=== PATIENT | female | born 1935 | race Caucasian/White ===

== ENCOUNTER 2023-07-13 17:22 | Emergency (ER) | payer MEDICARE, OTHER, MEDICAID, SELFPAY ==
[2023-07-13 17:25] VITALS: BP 170/89; PULSE 73; RESP 20; O2SAT 99; BMI 25.1
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
[2023-07-13 18:06] LABS: Basophils Absolute Auto 0.1 10^3/uL (0.0-0.1); Basophils Percent Auto 1.2 % (0.2-2.0); Eosinophils Absolute Auto 0.1 10^3/uL (0.0-0.7); Eosinophils Percent Auto 2.2 % (0.9-7.0); Hematocrit 37.7 % (36.0-48.0); Hemoglobin 11.9 g/dL (12.0-16.0); Immature Granulocytes Abs Auto 0.01 10^3/uL (0.00-0.03); Immature Granulocytes Pct Auto 0.2 % (0.0-0.5); Lymphocytes Absolute Auto 2.5 10^3/uL (1.2-3.8); Mean Corpuscular HGB Conc 31.6 g/dL (29.9-35.2); Mean Corpuscular Hemoglobin 29.1 pg (26.7-34.0); Mean Corpuscular Volume 92.2 fL (81.0-99.0); Mean Platelet Volume 10.7 fL (9.5-13.5); Monocytes Absolute Auto 0.3 10^3/uL (0.3-0.8); Monocytes Percent Auto 5.5 % (1.7-12.0); Neutrophils Percent Auto 49.9 % (43.0-75.0); Platelet Count 249 10^3/uL (150-450); Red Blood Count 4.09 10^6/uL (4.20-5.40); Red Cell Distribution Width 13.1 % (11.0-15.0)
[2023-07-13 18:21] LABS: Alanine Aminotransferase 21 U/L (14-59); Albumin Globulin Ratio 0.8; Albumin Level 3.3 g/dL (3.4-5.0); Alkaline Phosphatase 73 U/L (46-116); Anion Gap 9.6; Aspartate Amino Transferase 15 U/L (15-37); BUN Creatinine Ratio 13.8; Bilirubin Total 0.3 mg/dL (0.2-1.0); Calcium 9.8 mg/dL (8.5-10.1); Carbon Dioxide 28.5 mmol/L (21.0-32.0); Chloride 104 mmol/L (98-107); Estimated GFR (African America 54 (>=60); Estimated GFR (Non-African Ame 44 (>=60); Globulin 3.9 g/dL; Glucose 134 mg/dL (74-106); Potassium 4.1 mmol/L (3.5-5.1); Sodium 138 mmol/L (136-145); Total Protein 7.2 g/dL (6.4-8.2)
[2023-07-13 18:22] LABS: Bilirubin Urine NEGATIVE (NEGATIVE); Blood Urine NEGATIVE (NEGATIVE); Clarity Urine CLEAR (CLEAR); Color Urine LT. YELLOW (YELLOW); Glucose Urine UA >=1000 mg/dL (NEGATIVE); Ketones Urine NEGATIVE (NEGATIVE); Leukocyte Esterase Urine NEGATIVE (NEGATIVE); Nitrite Urine NEGATIVE (NEGATIVE); Protein Urine NEGATIVE (NEG/TRACE); Specific Gravity Urine <=1.005 (1.005-1.025); Urobilinogen Urine 0.2 EU/dL (0.2-1.0)
[2023-07-13 18:25] LABS: Urine Microscopic Indicated NO
[2023-07-13 18:34] LABS: Amphetamine Screen Urine NEGATIVE (NEGATIVE); Barbiturates Screen Urine NEGATIVE (NEGATIVE); Benzodiazepines Screen Urine NEGATIVE (NEGATIVE); Buprenorphine Screen Urine NEGATIVE (NEGATIVE); Cannabinoid Screen Urine NEGATIVE (NEGATIVE); Cocaine Screen Urine NEGATIVE (NEGATIVE); Methadone Screen Urine NEGATIVE (NEGATIVE); Methamphetamines Screen Urine NEGATIVE (NEGATIVE); Opiate Screen Urine NEGATIVE (NEGATIVE); Oxycodone Screen Urine NEGATIVE (NEGATIVE); Phencyclidine Screen Urine NEGATIVE (NEGATIVE); Tricyclic Antidepressant Urine NEGATIVE (NEGATIVE)
[2023-07-13 18:55] VITALS: BP 160/82; PULSE 64; RESP 18; O2SAT 98
--- NOTE | 2023-07-13 21:42 | ED.GENADUL1 ---
HPI - General Adult General Chief complaint: Altered Mental Status Stated complaint: Altered Mental Status Time Seen by Provider: 07/13/23 17:27 Source: patient Mode of arrival: ambulance Limitations: altered mental status History of Present Illness HPI narrative: The patient was initially seen by Dr. Ramsay and signed out to me after discussing the case with her. Please see her full history and physical. Related Data Home Medications Medication Instructions Recorded Confirmed amlodipine 10 mg tablet 10 mg PO DAILY 07/13/23 07/13/23 atorvastatin 10 mg tablet 10 mg PO DAILY 07/13/23 07/13/23 desvenlafaxine succinate 100 mg 100 mg PO Q24H 07/13/23 07/13/23 tablet,extended release 24 hr indapamide 2.5 mg tablet 2.5 mg PO DAILY 07/13/23 07/13/23 levothyroxine 100 mcg tablet 125 mcg PO DAILY 07/13/23 07/13/23 lisinopril 10 mg tablet 10 mg PO DAILY 07/13/23 07/13/23 metoprolol tartrate 25 mg tablet 25 mg PO DAILY 07/13/23 07/13/23 omeprazole 40 mg capsule,delayed 40 mg PO DAILY 07/13/23 07/13/23 release potassium chloride 10 mEq 10 meq PO DAILY 07/13/23 07/13/23 capsule,extended release sertraline 25 mg tablet 25 mg PO Q24H 07/13/23 07/13/23 trazodone 50 mg tablet 50 mg PO BEDTIME 07/13/23 07/13/23 Allergies Allergy/AdvReac Type Severity Reaction Status Date / Time adhesive tape AdvReac Mild Hives Verified 07/13/23 20:25 Penicillins AdvReac Mild Hives Verified 07/13/23 20:25 Exam Constitutional Vital Signs, click to edit/add: Last Vital Signs Pulse 64 07/13/23 18:55 Resp 18 07/13/23 18:55 BP 160/82 H 07/13/23 18:55 Pulse Ox 98 07/13/23 18:55 O2 Del Method Room Air 07/13/23 17:25 Course Vital Signs Vital signs: Vital Signs Pulse Rate 73 07/13/23 17:25 Respiratory Rate 20 07/13/23 17:25 Blood Pressure 170/89 H 07/13/23 17:25 Pulse Oximetry 99 07/13/23 17:25 Oxygen Delivery Method Room Air 07/13/23 17:25 Pulse Rate 64 07/13/23 18:55 Respiratory Rate 18 07/13/23 18:55 Blood Pressure 160/82 H 07/13/23 18:55 Pulse Oximetry 98 07/13/23 18:55 Oxygen Delivery Method Room Air 07/13/23 17:25 Medical Decision Making MDM Narrative Medical decision making narrative: mental health services has been involved and the patient will be discharged to [facility]. Differential Diagnosis Differential Diagnosis: behavior problem, medical noncompliance Lab Data Lab results reviewed: Yes I reviewed the patient's lab results Labs: Lab Results 07/13/23 07/13/23 Range/Units 17:45 18:13 WBC 6.0 (4.0-11.0) 10^3/uL RBC 4.09 L (4.20-5.40) 10^6/uL Hgb 11.9 L (12.0-16.0) g/dL Hct 37.7 (36.0-48.0) % MCV 92.2 (81.0-99.0) fL MCH 29.1 (26.7-34.0) pg MCHC 31.6 (29.9-35.2) g/dL RDW 13.1 (11.0-15.0) % Plt Count 249 (150-450) 10^3/uL MPV 10.7 (9.5-13.5) fL Neut % (Auto) 49.9 (43.0-75.0) % Lymph % (Auto) 41.0 (20.5-60.0) % [place] % (Auto) 5.5 (1.7-12.0) % Eos % (Auto) 2.2 (0.9-7.0) % Baso % (Auto) 1.2 (0.2-2.0) % Neut # (Auto) 3.0 (1.4-6.5) 10^3/uL Lymph # (Auto) 2.5 (1.2-3.8) 10^3/uL [place] # (Auto) 0.3 (0.3-0.8) 10^3/uL Eos # (Auto) 0.1 (0.0-0.7) 10^3/uL Baso # (Auto) 0.1 (0.0-0.1) 10^3/uL Abs Immat Gran (auto) 0.01 (0.00-0.03) 10^3/uL Imm/Tot Granulo (auto) 0.2 (0.0-0.5) % Sodium 138 (136-145) mmol/L Potassium 4.1 (3.5-5.1) mmol/L Chloride 104 (98-107) mmol/L Carbon Dioxide 28.5 (21.0-32.0) mmol/L Anion Gap 9.6 BUN 16.0 (7.0-18.0) mg/dL Creatinine 1.16 H (0.55-1.02) mg/dL Est GFR ( Amer) 54 L (>=60) Est GFR (Non-Af Amer) 44 L (>=60) BUN/Creatinine Ratio 13.8 Glucose 134 H (74-106) mg/dL Calcium 9.8 (8.5-10.1) mg/dL Total Bilirubin 0.3 (0.2-1.0) mg/dL AST 15 (15-37) U/L ALT 21 (14-59) U/L Alkaline Phosphatase 73 (46-116) U/L Total Protein 7.2 (6.4-8.2) g/dL Albumin 3.3 L (3.4-5.0) g/dL Globulin 3.9 g/dL Albumin/Globulin Ratio 0.8 Urine Color Lt. yellow (YELLOW) Urine Clarity Clear (CLEAR) Urine pH 7.0 (5.0-9.0) Ur Specific [place] <=1.005 A (1.005-1.025) Urine Protein Negative (NEG/TRACE) mg/dL Urine Glucose (UA) >=1000 A (NEGATIVE) mg/dL Urine Ketones Negative (NEGATIVE) mg/dL Urine Occult Blood Negative (NEGATIVE) Urine Nitrite Negative (NEGATIVE) Urine Bilirubin Negative (NEGATIVE) Urine Urobilinogen 0.2 (0.2-1.0) EU/dL Ur Leukocyte Esterase Negative (NEGATIVE) Urine Opiates Screen Negative (NEGATIVE) Ur Buprenorphine Scrn Negative (NEGATIVE) Ur Oxycodone Screen Negative (NEGATIVE) Urine Methadone Screen Negative (NEGATIVE) Ur Propoxyphene Screen Negative (NEGATIVE) Ur Barbiturates Screen Negative (NEGATIVE) U Tricyclic Antidepress Negative (NEGATIVE) Ur Phencyclidine Scrn Negative (NEGATIVE) Ur Amphetamines Screen Negative (NEGATIVE) U Methamphetamines Scrn Negative (NEGATIVE) U Benzodiazepines Scrn Negative (NEGATIVE) Urine Cocaine Screen Negative (NEGATIVE) U Cannabinoids Screen Negative (NEGATIVE) Discharge Plan Discharge Chief Complaint: Altered Mental Status Clinical Impression: Behavior problem, adult Patient Disposition: [facility] Time of Disposition Decision: 21:41 Condition: Good Mode of Transportation: EMS Stand Alone Forms: Portal Instructions Referrals: MARZENA GUILLAUME [Primary Care Provider] - 1 week
[2023-07-13 23:26] VITALS: BP 143/67; PULSE 71; RESP 18; O2SAT 97
== END 2023-07-13 23:49 ==
PROVIDERS: Emergency Medicine; Emergency Provider Emergency Medicine; PCP Family Medicine
DX: F91.9 Conduct disorder, unspecified (principal); F03.90 Unspecified dementia, unspecified severity, without behavioral disturbance, psychotic disturbance, mood disturbance, and anxiety; Z79.899 Other long term (current) drug therapy; Z79.890 Hormone replacement therapy
CPT/HCPCS: 36415; 80053; 80307; 81003; 85025; 99285

== ENCOUNTER 2024-11-27 02:37 | Emergency (ER) | payer MEDICARE, MEDICAID, SELFPAY ==
[2024-11-27] VITALS (8 sets, daily range): BP systolic 119–141; BP diastolic 58–67; PULSE 80–84; TEMP 36.6; O2SAT 95–98; BMI 28.3
--- NOTE | 2024-11-27 02:46 | ED_ITS ---
HPI HPI - General Adult General Chief complaint: Nausea/Vomiting/Diarrhea Stated complaint: other Time Seen by Provider: 11/27/24 02:43 Source: patient Mode of arrival: ambulance Limitations: no limitations History of Present Illness HPI narrative: Patient presents by EMS from her [facility] where she had an episode of vomiting and diarrhea today. Nurse reported that she had a brief episode of unresponsiveness and may be had seizure-like activity. Patient states that she feels lousy. Related Data Home Medications ?Medication ?Instructions ?Recorded ?Confirmed amlodipine 10 mg tablet 10 mg PO DAILY 07/13/23 07/13/23 atorvastatin 10 mg tablet 10 mg PO DAILY 07/13/23 11/27/24 desvenlafaxine succinate 100 mg 100 mg PO Q24H 07/13/23 07/13/23 tablet,extended release 24 hr indapamide 2.5 mg tablet 2.5 mg PO DAILY 07/13/23 07/13/23 levothyroxine 100 mcg tablet 125 mcg PO DAILY 07/13/23 07/13/23 lisinopril 10 mg tablet 10 mg PO DAILY 07/13/23 07/13/23 metoprolol tartrate 25 mg tablet 25 mg PO DAILY 07/13/23 07/13/23 omeprazole 40 mg capsule,delayed 40 mg PO DAILY 07/13/23 07/13/23 release potassium chloride 10 mEq 10 meq PO DAILY 07/13/23 07/13/23 capsule,extended release sertraline 25 mg tablet 25 mg PO Q24H 07/13/23 07/13/23 trazodone 50 mg tablet 50 mg PO BEDTIME 07/13/23 07/13/23 acetaminophen 325 mg tablet (Pain 650 mg PO Q6H PRN pain 11/27/24 11/27/24 Relief (acetaminophen)) aspirin 81 mg chewable tablet 81 mg PO DAILY 11/27/24 11/27/24 bupropion HCl 75 mg tablet 75 mg PO DAILY 11/27/24 11/27/24 buspirone 7.5 mg tablet 7.5 mg PO BID 11/27/24 11/27/24 dapagliflozin propanediol 10 mg 10 mg PO DAILY 11/27/24 11/27/24 tablet (Farxiga) escitalopram oxalate 5 mg tablet 5 mg PO DAILY 11/27/24 11/27/24 indapamide 1.25 mg tablet 1.25 mg PO DAILY 11/27/24 11/27/24 levothyroxine 112 mcg tablet 112 mcg PO DAILY 11/27/24 11/27/24 lisinopril 5 mg tablet 5 mg PO DAILY 11/27/24 11/27/24 loperamide 2 mg capsule 2 mg PO Q6H PRN loose stool 11/27/24 11/27/24 (Anti-Diarrheal (loperamide)) omeprazole 20 mg capsule,delayed 20 mg PO DAILY 11/27/24 11/27/24 release ondansetron HCl 4 mg tablet 4 mg PO Q6H PRN nausea and vomiting 11/27/24 11/27/24 spironolactone 25 mg tablet 25 mg PO DAILY 11/27/24 11/27/24 Allergies Allergy/AdvReac Type Severity Reaction Status Date / Time adhesive tape AdvReac Mild Hives Verified 11/27/24 03:10 Penicillins AdvReac Mild Hives Verified 11/27/24 03:10 Opioid HPI Opioid Management Most Recent Opioid Data: Last Pain Scale 0 07/13/23 17:46 07/13/23 Ur Phencyclidine Scrn Negative (NEGATIVE) 07/13/23 18:13 1011/04 Review of Systems ROS Status of ROS 10 or more systems reviewed and unremark able except as noted in history and below [facility] Social History Little interest or pleasure in doing things: not at all Feeling down, depressed, or hopeless: not at all Exam Narrative Exam Narrative: Afebrile and nondistressed. Mildly ill-appearing. HEENT exam is normal to inspection. Neck is supple. Lung sounds are clear to auscultation bilaterally with good air entry. Heart has regular rate and rhythm. Abdomen soft nontender. There is no facial asymmetry. Speech and mentation are clear and intact she moves all extremities actively. Constitutional Vital Signs, click to edit/add: Last Vital Signs Temp 97.8 F 11/27/24 02:40 Pulse 84 11/27/24 06:51 Resp 18 11/27/24 06:51 BP 141/61 11/27/24 06:51 Pulse Ox 95 11/27/24 06:51 O2 Del Method Room Air 11/27/24 06:51 Course Vital Signs Vital signs: Vital Signs Temperature 97.8 F 11/27/24 02:40 Pulse Rate 80 11/27/24 02:40 Respiratory Rate 20 11/27/24 02:40 Blood Pressure 119/60 11/27/24 02:40 Pulse Oximetry 98 11/27/24 02:40 Oxygen Delivery Method Room Air 11/27/24 02:40 Temperature 97.8 F 11/27/24 02:40 Pulse Rate 84 11/27/24 06:51 Respiratory Rate 18 11/27/24 06:51 Blood Pressure 141/61 11/27/24 06:51 Pulse Oximetry 95 11/27/24 06:51 Oxygen Delivery Method Room Air 11/27/24 06:51 Medical Decision Making MDM Narrative Medical decision making narrative: Patient has prerenal azotemia consistent with volume depletion. CT scan of the abdomen pelvis shows flattening of the IVC and fluid in the GI tract consistent with enteritis and low volume status. She is started on IV fluid resuscitation and is receiving his second liter of saline. Initial lactate level was elevated 2.3 but I do not feel this is due to sepsis. This is caused by hypovolemia and the second lactate level has normalized. Urine studies are pending. Care is transferred to oncoming physician at change of shift for further evaluation and eventual disposition. Lab Data Labs: Lab Results 11/27/24 11/27/24 11/27/24 Range/Units 03:06 05:30 05:55 WBC 12.5 H (4.0-11.0) 10^3/uL RBC 4.08 L (4.20-5.40) 10^6/uL Hgb 12.1 (12.0-16.0) g/dL Hct 38.6 (36.0-48.0) % MCV 94.6 (81.0-99.0) fL MCH 29.7 (26.7-34.0) pg MCHC 31.3 (29.9-35.2) g/dL RDW 13.9 (11.0-15.0) % Plt Count 293 (150-450) 10^3/uL MPV 10.4 (9.5-13.5) fL Neut % (Auto) 75.8 H (43.0-75.0) % Lymph % (Auto) 15.9 L (20.5-60.0) % [place] % (Auto) 5.4 (1.7-12.0) % Eos % (Auto) 2.1 (0.9-7.0) % Baso % (Auto) 0.5 (0.2-2.0) % Neut # (Auto) 9.5 H (1.4-6.5) 10^3/uL Lymph # (Auto) 2.0 (1.2-3.8) 10^3/uL [place] # (Auto) 0.7 (0.3-0.8) 10^3/uL Eos # (Auto) 0.3 (0.0-0.7) 10^3/uL Baso # (Auto) 0.1 (0.0-0.1) 10^3/uL Abs Immat Gran (auto) 0.04 H (0.00-0.03) 10^3/uL Imm/Tot Granulo (auto) 0.3 (0.0-0.5) % Sodium 135 L (136-145) mmol/L Potassium 4.7 (3.5-5.1) mmol/L Chloride 101 (98-107) mmol/L Carbon Dioxide 23.8 (21.0-32.0) mmol/L Anion Gap 14.9 BUN 40.0 H (7.0-18.0) mg/dL Creatinine 2.09 H (0.55-1.02) mg/dL Est GFR ( Amer) 27 L (>=60 mL/min/1.73m^2) Est GFR (Non-Af Amer) 22 L (>=60 mL/min/1.73m^2) BUN/Creatinine Ratio 19.1 Glucose 243 H (74-106) mg/dL Lactate 2.3 H* 1.8 (0.4-2.0) mmol/L Calcium 10.5 H (8.5-10.1) mg/dL Total Bilirubin 0.3 (0.2-1.0) mg/dL Direct Bilirubin 0.1 (0.0-0.2) mg/dL AST 16 (15-37) U/L ALT 19 (14-59) U/L Alkaline Phosphatase 106 (46-116) U/L Total Protein 8.2 (6.4-8.2) g/dL Albumin 3.8 (3.4-5.0) g/dL Globulin 4.4 g/dL Albumin/Globulin Ratio 0.9 Lipase 69.0 (16.0-77.0) U/L Urine Color Yellow (YELLOW) Urine Clarity Sl cloudy (CLEAR) Urine pH 5.5 (5.0-9.0) Ur Specific [place] 1.025 (1.005-1.025) Urine Protein 30 A (NEG/TRACE) mg/dL Urine Glucose (UA) >=1000 A (NEGATIVE) mg/dL Urine Ketones Negative (NEGATIVE) mg/dL Urine Occult Blood Small A (NEGATIVE) Urine Nitrite Negative (NEGATIVE) Urine Bilirubin Negative (NEGATIVE) Urine Urobilinogen 0.2 (0.2-1.0) EU/dL Ur Leukocyte Esterase Small A (NEGATIVE) Discharge Plan Discharge Chief Complaint: Nausea/Vomiting/Diarrhea Clinical Impression: Gastroenteritis, Fluid volume depletion Prescriptions / Home Meds: No Action amlodipine 10 mg tablet 10 mg PO DAILY atorvastatin 10 mg tablet 10 mg PO DAILY desvenlafaxine succinate 100 mg tablet extended release 24 hr 100 mg PO Q24H indapamide 2.5 mg tablet 2.5 mg PO DAILY levothyroxine 100 mcg tablet 125 mcg PO DAILY lisinopril 10 mg tablet 10 mg PO DAILY metoprolol tartrate 25 mg tablet 25 mg PO DAILY omeprazole 40 mg capsule,delayed release(DR/EC) 40 mg PO DAILY potassium chloride 10 mEq capsule, extended release 10 meq PO DAILY sertraline 25 mg tablet 25 mg PO Q24H trazodone 50 mg tablet 50 mg PO BEDTIME aspirin 81 mg tablet,chewable 81 mg PO DAILY bupropion HCl 75 mg tablet 75 mg PO DAILY buspirone 7.5 mg tablet 7.5 mg PO BID escitalopram oxalate 5 mg tablet 5 mg PO DAILY dapagliflozin propanediol [Farxiga] 10 mg tablet 10 mg PO DAILY loperamide [Anti-Diarrheal (loperamide)] 2 mg capsule 2 mg PO Q6H PRN (Reason: loose stool) indapamide 1.25 mg tablet 1.25 mg PO DAILY levothyroxine 112 mcg tablet 112 mcg PO DAILY lisinopril 5 mg tablet 5 mg PO DAILY omeprazole 20 mg capsule,delayed release(DR/EC) 20 mg PO DAILY spironolactone 25 mg tablet 25 mg PO DAILY acetaminophen [Pain Relief (acetaminophen)] 325 mg tablet 650 mg PO Q6H PRN (Reason: pain) ondansetron HCl 4 mg tablet 4 mg PO Q6H PRN (Reason: nausea and vomiting) Print Language: Irish Referrals: MARZENA GUILLAUME [Primary Care Provider] - 1 week
--- NOTE | 2024-11-27 02:47 | CT_ITS ---
The [address] [address] Patient Name: CATE PAUL MRN: [id number] date: 1935 Sex: F Assigned Patient Location: ER Current Patient Location: ER Accession/Order Number: [id number] Exam Date: 11/27/2024 03:14 Report Date: 11/27/2024 05:05 At the request of: EMILY SEGUNDO Procedure: CT abdomen pelvis wo con EXAM: CT abdomen pelvis wo con HISTORY: vomiting, diarrhea, abd pain COMPARISON: CT abdomen/pelvis dated 10/06/2016. TECHNIQUE: CT abdomen/pelvis without intravenous contrast. FINDINGS: Atelectatic densities at the lung bases. Stable Harshal's lobe configuration of the liver with the right lobe measuring 17.6 cm in longitudinal dimension. Stable 1.6 cm hypodense lesion within the liver measuring 5 Hounsfield units which most commonly is a cyst. There are a few scattered calcified granuloma within the liver. The gallbladder and biliary tree are unremarkable. The pancreatic head is mildly fatty infiltrated. There are numerous calcified granuloma scattered within the spleen. The bilateral adrenal glands are unremarkable. There is mild cortical scarring and/or retained lobulation along the contour of both kidneys. There is a 0.4 cm high attenuation nodule projecting from the posterior lateral aspect of the midpole the right kidney which most commonly is a Bosniak 2 cyst complicated with proteinaceous debris and/or blood degradation products. Nonobstructive bowel gas pattern. There is a large amount of liquid stool throughout the colon. There is no colonic wall thickening. The appendix is not identified. There is fluid within the distal esophageal lumen suggesting gastroesophageal reflux. There is a small amount of fluid within the stomach. Fluid within jejunal and ileal small bowel loops with mild circumferential wall thickening. Correlate with clinical findings of an enteritis with diarrhea state. Multivessel coronary calcifications. Mitral annular calcification. Moderately severe atheromatous calcification abdominal aorta and iliac arteries. Atheromatous calcifications, femoral, femoral and profunda femoral arteries. Mild atheromatous calcification splenic, superior mesenteric and bilateral renal arteries. There is flattening of the IVC. Correlate with the patient's hydration status. There is no free air, free fluid or inflammatory reaction/abscess. There are no pathologically enlarged lymph nodes. There is a small amount of gas within the underdistended urinary bladder. Correlate with recent instrumentation of the urinary bladder. There is mild circumferential thickening of the urinary bladder wall which may in part be related to underdistention. Correlate with a urinalysis to exclude a cystitis. There is fat extending into the left inguinal canal. The patient has had a prior hysterectomy. There are numerous pelvic phleboliths. A small amount of fat extending into the umbilicus. The bony structures are osteopenic. There are discogenic degenerative changes at numerous levels along the thoracolumbar spine, most prominent and severe at L2-3. There is facet arthritis at L4-5 and L5-S1. CT/CT abdomen pelvis wo con IMPRESSION: Findings as described which can be associated with an enteritis and diarrhea state. Correlate with clinical findings. The bowel gas pattern is nonobstructive. There is no free air, free fluid or inflammatory reaction. Stable 1.6 cm hypodense lesion within the liver which most commonly is a cyst. There is a 0.4 cm hypoattenuation nodule projecting from the posterior lateral aspect of the midpole the right kidney which most commonly is a Bosniak 2 cyst complicated with proteinaceous debris and/or blood degradation products. There is flattening of the IVC. Correlate with the patient's hydration status. Atherosclerotic disease as described. Small amount of gas within the underdistended urinary bladder. Correlate with recent instrumentation of the urinary bladder. There is mild to confirm nodule thickening of the urinary bladder wall which may in part be related to underdistention. Correlate with a urinalysis to exclude a cystitis. Few additional findings as described in the body the report. Electronically authenticated by: JESSE YOUNG Date: 11/27/2024 05:05
[2024-11-27 03:14] LABS: Basophils Absolute Auto 0.1 10^3/uL (0.0-0.1); Basophils Percent Auto 0.5 % (0.2-2.0); Eosinophils Absolute Auto 0.3 10^3/uL (0.0-0.7); Eosinophils Percent Auto 2.1 % (0.9-7.0); Hematocrit 38.6 % (36.0-48.0); Hemoglobin 12.1 g/dL (12.0-16.0); Immature Granulocytes Abs Auto 0.04 10^3/uL (0.00-0.03); Immature Granulocytes Pct Auto 0.3 % (0.0-0.5); Lymphocytes Percent Auto 15.9 % (20.5-60.0); Mean Corpuscular HGB Conc 31.3 g/dL (29.9-35.2); Mean Corpuscular Hemoglobin 29.7 pg (26.7-34.0); Mean Corpuscular Volume 94.6 fL (81.0-99.0); Mean Platelet Volume 10.4 fL (9.5-13.5); Monocytes Absolute Auto 0.7 10^3/uL (0.3-0.8); Monocytes Percent Auto 5.4 % (1.7-12.0); Neutrophils Absolute Auto 9.5 10^3/uL (1.4-6.5); Neutrophils Percent Auto 75.8 % (43.0-75.0); Platelet Count 293 10^3/uL (150-450); Red Blood Count 4.08 10^6/uL (4.20-5.40); Red Cell Distribution Width 13.9 % (11.0-15.0); White Blood Count 12.5 10^3/uL (4.0-11.0)
[2024-11-27 03:32] LABS: Alanine Aminotransferase 19 U/L (14-59); Albumin Globulin Ratio 0.9; Albumin Level 3.8 g/dL (3.4-5.0); Alkaline Phosphatase 106 U/L (46-116); Anion Gap 14.9; Aspartate Amino Transferase 16 U/L (15-37); BUN Creatinine Ratio 19.1; Bilirubin Direct 0.1 mg/dL (0.0-0.2); Bilirubin Total 0.3 mg/dL (0.2-1.0); Calcium 10.5 mg/dL (8.5-10.1); Carbon Dioxide 23.8 mmol/L (21.0-32.0); Chloride 101 mmol/L (98-107); Estimated GFR (African America 27 (>=60 mL/min/1.73m^2); Estimated GFR (Non-African Ame 22 (>=60 mL/min/1.73m^2); Globulin 4.4 g/dL; Glucose 243 mg/dL (74-106); Potassium 4.7 mmol/L (3.5-5.1); Sodium 135 mmol/L (136-145); Total Protein 8.2 g/dL (6.4-8.2)
[2024-11-27] MEDS: 0.9 % SODIUM CHLORIDE 1,000 ML 250 ML IV (03:33)
[2024-11-27] MEDS: ONDANSETRON PF 4 MG/2 ML VIAL IV (03:33)
[2024-11-27 03:44] LABS: Lactate/Lactic Acid 2.3 mmol/L (0.4-2.0)
[2024-11-27 06:36] LABS: Lactate/Lactic Acid 1.8 mmol/L (0.4-2.0)
[2024-11-27 06:47] LABS: Bilirubin Urine NEGATIVE (NEGATIVE); Blood Urine SMALL (NEGATIVE); Clarity Urine SL CLOUDY (CLEAR); Color Urine YELLOW (YELLOW); Glucose Urine UA >=1000 mg/dL (NEGATIVE); Ketones Urine NEGATIVE (NEGATIVE); Leukocyte Esterase Urine SMALL (NEGATIVE); Nitrite Urine NEGATIVE (NEGATIVE); Protein Urine 30 mg/dL (NEG/TRACE); Specific Gravity Urine 1.025 (1.005-1.025); Urobilinogen Urine 0.2 EU/dL (0.2-1.0); pH Urine 5.5 (5.0-9.0)
[2024-11-27 06:49] LABS: Urine Microscopic Indicated YES
[2024-11-27] MEDS: 0.9 % SODIUM CHLORIDE 1,000 ML 1000 ML IV (06:50)
[2024-11-27 07:02] LABS: Bacteria Urine LARGE #/HPF (NONE SEEN); Cast Seen? SEEN #/LPF (NONE SEEN); Crystals Seen? None Seen #/HPF (None Seen); Hyaline Casts Urine FEW; Mucus Urine SMALL (NONE SEEN); Squamous Epithelial Cell Urine MANY #/LPF (NONE/RARE); Transitional Epi Cells Urine RARE #/LPF (NONE SEEN); WBC Urine >100 #/HPF (NONE SEEN); White Blood Cell Casts Urine FEW
[2024-11-27 07:03] LABS: Urine Culture Indicated YES-FRMC
[2024-11-27] MEDS: CEFTRIAXONE 1,000 MG in 0.9 % SODIUM CHLORIDE 50 ML 100 MG IV (07:27)
== END 2024-11-27 10:26 | disposition home or self-care (01) ==
PROVIDERS: Emergency Medicine; Emergency Provider Emergency Medicine; PCP Family Medicine
DX: K52.9 Noninfective gastroenteritis and colitis, unspecified (principal); E86.9 Volume depletion, unspecified; R40.4 Transient alteration of awareness; R79.89 Other specified abnormal findings of blood chemistry
CPT/HCPCS: 36415; 74176; 80048; 80076; 81001; 83605; 83690; 85025; 87086; 87150; 87186; 96361; 96365; 96375; 99284; J0696; J2405

== ENCOUNTER 2025-05-30 12:20 | Outpatient (REF) | payer MEDICARE, OTHER, MEDICAID, SELFPAY ==
--- OUTSIDE RECORDS SUMMARY | 2025-05-30 12:25 | XMS_ITS | Encounter Summary ---
Author Organization [facility] Address [address] [place] [address] Care Team Providers Care Infection Control Practitioner Name Role Phone Mervat Banuelos MD Primary Care Provider [phone] Source Comments In the event this information is protected by the Federal Confidentiality of Alcohol and Drug AbusePatient Records regulations: The Federal rules restrict any use of the information to criminally investigate or prosecute any alcohol or drug abuse patient.[facility] Encounter Details Date Type Department Care Team (Late st Contact Info) Description 07/23/2011 Patient Msg Medical Records [address] [place] [address] Provider, Ccf RE: Request an Appointment Social History Tobacco Use Types Packs/Day Years Used Date Smoking Tobacco: Never Smokeless Tobacco: Never Alcohol Use Standard Drinks/Week Comments Yes 0 (1 standard drink = 0.6 oz pur e alcohol) occassionally Comments No Sex and Gender Information Value Date Recorded Sex Assigned at Female 06/19/2022 8:40 PM EDT Legal Sex Female 8:57 AM EST Gender Identity Female 06/19/2022 8:40 PM EDT Sexual Orientation Straight 06/19/2022 8: 40 PM EDT documented as of this encounter Plan of Treatment Not on file documented as of this encounter Visit Diagnoses Not on filedocumented in this encounter Care Teams Infection Control Practitioner Relationship Specialty Start Date End Date Mervat Banuelos MD [address] [place] [address] PCP - General Internal Medicine 05/13/11 04/02/23 documented as of this encounter
--- OUTSIDE RECORDS SUMMARY | 2025-05-30 12:25 | XMS_ITS ---
Author Organization [facility] Care Team Providers Care Church History Professor Name Role Phone Saldukebetty Sawyer Unavailable Unavailable Allergies and adverse reactions Code CodeSystem Substance Reaction Severity StartDate Concern Status 521720198 SNOMED CT Penicillins Unknown 02/02/2020 activ e Care Team Name Role Address Phone Organization Dates Sawyer Hickey PCP [address] [facility] [facility] [place], [address], [place] (Office): : : [facility] 02/02/2020 - 08/19/2020 Immunizations Immunization Status Vaccine Details Vaccine Code CodeSystem Date Notes Influenza completed Influenza, high-dose, split virus, quadrivalent, injectable, preservative free lotNumber: [id number] expiry: 04/11/2021 Mfg: Seqirus Given 0.5 ml Right Deltoid intramuscularly 197 CVX created date: 08/11/2020 consent date: 08/10/2020 administer ed date: 08/11/2020 Influenza completed Influenza, high-dose, split virus, quadrivalent, injectable, preservative free 197 CVX created date: 02/02/2020 administer ed date: 06/30/2019 TB 1 Step Mantoux (PPD) completed tuberculin skin test; unspecified formulation lotNumber: [id number] expiry: 09/11/2020 Mfg: [employer] Given 0.1 ml Left Forearm subcutaneously 98 CVX created date: 02/10/2020 consent date: 02/10/2020 administer ed date: 02/10/2020 TB 1 Step Mantoux (PPD) completed tuberculin skin test; unspecified formulation lotNumber: [id number] expiry: 02/10/2020 Mfg: [employer] Given 0.1 ml Right Forearm intradermally 98 CVX created date: 02/02/2020 consent date: 02/02/2020 administer ed date: 02/02/2020 Prevnar 13 completed pneumococcal conjugate vaccine, 13 valent 133 CVX created date: 02/02/2020 consent date: 02/02/2020 administer ed date: 08/23/2015 PPSV 23 completed pneumococcal polysaccharide vaccine, 23 valent 33 CVX created date: 02/02/2020 consent date: 02/08/2020 administer ed date: 09/01/2014 Per resident's my chart file provided by DTaP completed created date: 02/02/2020 administer ed date: 05/13/2011 Shingles Zoster completed crea marino date: 02/02/2020 administer ed date: 05/13/2011 Mental Status Section Date Assessment Total Score Description 08/19/2020 BIMS 09 moderate cognit juni impairment CAM 0 No delirium ind icated PHQ-9 04 minimal depress ion 08/03/2020 BIMS 11 moderate cognit juni impairment CAM 0 No delirium ind icated PHQ-9 05 mild depression Problems Problem # Description Date of onset Resolved Date Code CodeSystem Concern Status 1 ADJUSTMENT DISORDER, UNSPECIFIED 07/26/[address] active 2 BODY MASS INDEX [BMI] 29.0-29.9, ADULT 07/13/[address] active 3 UNSPECIFIED OSTEOARTHRITIS, UNSPECIFIED SITE 04/17/[address] active 4 PERIPHERAL VASCULAR DISEASE, UNSPECIFIED 04/13/[address] active 5 BODY MASS INDEX [BMI] 28.0-28.9, ADULT 04/12/20 20 07/13/[address] completed 6 CHRONIC KIDNEY DISEASE, STAGE 4 (SEVERE) 03/01/[address] active 7 COPPER ETCHER (CURRENT) USE OF INSULIN 02/25/20 20 08/14/[address] completed 8 BODY MASS INDEX [BMI] 29.0-29.9, ADULT 02/11/20 20 04/12/[address] completed 9 DIFFICULTY IN WALKING, NOT ELSEWHERE CLASSIFIED 02/10/2002/28/[address] completed 10 BODY MASS INDEX [BMI]30.0-30.9, ADULT 02/08/20 20 02/11/[address] completed 11 OBESITY, UNSPECIFIED 02/08/[address] active 12 MUSCLE WEAKNESS (GENERALIZED) 02/07/2002/28/[address] completed 13 OTHER PROBLEMS RELATED TO LIFE MANAGEMENT DIFFICULTY 02/07/2002/28/[address] completed 14 ANEMIA IN CHRONIC KIDNEY DISEASE 02/02/[address] active 15 ANXIETY DISORDER, UNSPECIFIED 02/02/[address] active 16 CHRONIC KIDNEY DISEASE, STAGE 3 (MODERATE) 02/02/2003/01/[address] completed 17 GASTRO-ESOPHAGEAL REFLUX DISEASE WITHOUT ESOPHAGITIS 02/02/[address] active 18 HISTORY OF FALLING 02/02/[address] active 19 HYPERTENSIVE CHRONIC KIDNEY DISEASE WITH STAGE 1 THROUGH STAGE 4 CHRONIC KIDNEY DISEASE, OR UNSPECIFIED CHRONIC KIDNEY DISEASE 02/02/[address] active 20 HYPOKALEMIA 02/02/[address] active 21 HYPOTHYROIDISM, UNSPECIFIED 02/02/[address] active 22 IRRITABLE BOWEL SYNDROME, UNSPECIFIED 02/02/[address] active 23 MAJOR DEPRESSIVE DISORDER, SINGLE EPISODE, UNSPECIFIED 02/02/[address] active 24 OBSTRUCTIVE SLEEP APNEA (ADULT) (PEDIATRIC) 02/02/[address] active 25 PRESENCE OF LEFT ARTIFICIAL SHOULDER JOINT 02/02/[address] active 26 PURE HYPERCHOLESTEROLE LONNIE, UNSPECIFIED 02/02/[address] active 27 TYPE 2 DIABETES MELLITUS WITH DIABETIC CHRONIC KIDNEY DISEASE 02/02/[address] active 28 UNSPECIFIED DEMENTIA WITH BEHAVIORAL DISTURBANCE 02/02/[address] active 29 UNSPECIFIED PSYCHOSIS NOT DUE TO A SUBSTANCE OR KNOWN PHYSIOLOGICAL CONDITION 02/02/[address] active 30 URINARY TRACT INFECTION, SITE NOT SPECIFIED 02/02/2002/04/[address] completed 31 URINARY TRACT INFECTION, SITE NOT SPECIFIED 02/02/2002/04/[address] completed 32 VITAMIN D DEFICIENCY, UNSPECIFIED 02/02/[address] active Reason for Referral No Reasons for Referral Entered Social History Social History Observation Description Start Date End Date Code Code System Current Smoking Status Tobacco smoking consumption unknown 203701121 SNOMED CT Sex Assigned At Female 1935 24385-5 [facility] Gender Identity Vital Signs Code Code System Vitals Name Values and Units Timing Information 79794-0 [facility] Pain Level Value=0.0 08/19/2020 2339-0 [facility] Blood Sugar Value=89.0 Units=mg/dL 08/19/2020 9279-1 [facility] Respiratory Rate Value=16.0 Units=/m in 08/19/2020 8310-5 [facility] Body Temperature Value=98.3 Units= F 08/19/2020 8867-4 [facility] Heart rate Value=62.0 Units=/min 04/2020 38628-6 [facility] O2 % BldC Oximetry Value=97.0 Units= % 08/19/2020 8462-4 [facility] Blood Pressure-Diastolic Value=58 Un its=mmHg 08/19/2020 8480-6 [facility] Blood Pressure-Systolic Hbtjr=519 Un its=mmHg 08/19/2020 51941-4 [facility] Weight Insam=198.4 Units=Lbs 01/2020 8302-2 [facility] Height Value=61.0 Units=Inches 02/02/2020
--- OUTSIDE RECORDS SUMMARY | 2025-05-30 12:25 | XMS_ITS | Encounter Summary ---
Author Organization [facility] Address [address] [place] [address] Care Team Providers Care Ammonia Box Operator Name Role Phone Mervat Banuelos MD Primary Care Provider [phone] Source Comments In the event this information is protected by the Federal Confidentiality of Alcohol and Drug AbusePatient Records regulations: The Federal rules restrict any use of the information to criminally investigate or prosecute any alcohol or drug abuse patient.[facility] Encounter Details Date Type Department Care Team (Late st Contact Info) Description 07/04/2011 Patient Msg Medical Records [address] [place] [address] Provider, Ccf thyroid Social History Tobacco Use Types Packs/Day Years [...] on filedocumented in this encounter Care Teams Ammonia Box Operator Relationship Specialty Start Date End Date Mervat Banuelos MD [address] [place] [address] PCP - General Internal Medicine 05/13/11 04/02/23 documented as of this encounter
--- OUTSIDE RECORDS SUMMARY | 2025-05-30 12:25 | XMS_ITS | Encounter Summary ---
Author Organization [facility] Address [address] [place] [address] Care Team Providers Care Internet Merchant Name Role Phone Mervat Banuelos MD Primary Care Provider [phone] Source Comments In the event this information is protected by the Federal Confidentiality of Alcohol and Drug AbusePatient Records regulations: The Federal rules restrict any use of the information to criminally investigate or prosecute any alcohol or drug abuse patient.[facility] Encounter Details Date Type Department Care Team (Late st Contact Info) Description 06/20/2011 Patient Msg Medical Records [address] [place] [address] Provider, Ccf RE:your sleep study Social History Tobacco Use Types Packs/Day Years [...] on filedocumented in this encounter Care Teams Internet Merchant Relationship Specialty Start Date End Date Mervat Banuelos MD [address] [place] [address] PCP - General Internal Medicine 05/13/11 04/02/23 documented as of this encounter
--- OUTSIDE RECORDS SUMMARY | 2025-05-30 12:25 | XMS_ITS | Encounter Summary ---
Author Organization [facility] Address [id number] [address] [place] [address] Care Team Providers Care Prospecting Observer Name Role Phone Antonio Rangel Primary Care Provider [phone] Encounter Details Date Type Department Care Team (Late st Contact Info) Description 12/02/2024 Orders Only [facility] Internal Medicine - Family Medicine [address] [place] [address] Ref Prov, [place] [address] Social History Tobacco Use Types Packs/Day Years Used Date Smoking Tobacco: Never Smokeless Tobacco: Never Alcohol Use Standard Drinks/Week Comments Never 0 (1 standard drink = 0.6 oz pur e alcohol) AUDIT-C Answer Date Recorded Q1: How often do you have a drink containing alcohol? Never 08/27/2023 Q2: How many drinks containi ng alcohol do you have on a typical day when you are drinking? Patient does not drink Q3: How often do you have si x or more drinks on one occasion? Never 08/27/2023 Childcare Answer Date Recorded Childcare Unknown 03/24/2019 Employment Answer Date Recorded Employment Unknown 03/24/2019 Hunger Screening Answer Date Recorded Within the past 12 months we worried whether our food would run out before we got money to buy more. Never True 08/25/2023 Within the past 12 months th e food we bought just didn't last and we didn't have money to get more. Never True 08/25/2023 Purpose - Life Answer Date Recorded Purpose and direction in life Unknown Comments No Sex and Gender Information Value Date Recorded Sex Assigned at Not on file Legal Sex Female 11:50 AM EDT Gender Identity Not on file Sexual Orientation Not on file documented as of this encounter Plan of Treatment Not on file documented as of this encounter Goals Goal Patient Goal Type Associated Problems Recent Progress Patient-Stated? Author <enter goal here> General Yes Jagruti Guido LSW Note: Evaluation of progress towards goal: plan return to [facility] documented as of this encounter Procedures Procedure Name Priority Date/Time Associated Diagnosis Comments URINE CULTURE Routine 11/27/2024 9:39 AM EST URINE CULTURE Routine 11/27/2024 9:[address] ABDOMEN AND PELVIS WO CONT Routine 11/27/2024 9:27 AM EST documented in this encounter Results * Urine Culture (11/27/2024 9:39 AM EST) Urine us Not In System Ref Prov MICROBIOLOGY - GENERAL OR DERABLES Final Result Performing Organization Address [facility] Co de Phone Number MANUALLY TRANSCRIBED RESULTS * Urine Culture (11/27/2024 9:38 AM EST) Urine us Not In System Ref Prov MICROBIOLOGY - GENERAL OR DERABLES Final Result Performing Organization Address [facility] Co de Phone Number MANUALLY TRANSCRIBED RESULTS * CT abdomen and pelvis without contrast (11/27/2024 9:27 AM EST) Anatomical Region Laterality Modality Body, Abdomen, Body Covera N/A Compu marino Tomography us Not In System Ref Prov IMG CT ORDERABLES Final R esult documented in this encounter Visit Diagnoses Not on filedocumented in this encounter Care Teams Prospecting Observer Relationship Specialty Start Date End Date Antonio Rangel DO PCP - General Family Medicine 08/25/23 documented as of this encounter
--- OUTSIDE RECORDS SUMMARY | 2025-05-30 12:25 | XMS_ITS | Encounter Summary ---
Author Organization [facility] Address [address] [place] [address] Care Team Providers Care Silk Screen Etcher Name Role Phone Mervat Banuelos MD Primary Care Provider [phone] Source Comments In the event this information is protected by the Federal Confidentiality of Alcohol and Drug AbusePatient Records regulations: The Federal rules restrict any use of the information to criminally investigate or prosecute any alcohol or drug abuse patient.[facility] Encounter Details Date Type Department Care Team (Late st Contact Info) Description 01/21/2014 Patient Msg Medical Records [address] [place], [place] [id number] Provider, Ccf RE:MRI Social History Tobacco Use Types Packs/Day Years [...] PM EDT documented as of this encounter Functional Status * Are you deaf or do you have serious difficulty hearing? Answer Date of Assessment Author Yes 01/20/2014 1:11 PM ANTONIT Antonio Story RN * Are you blind or do you have serious difficulty seeing, even when wearing glasses? Answer Date of Assessment Author No 01/20/2014 1:11 PM ANTONIT Antonio Story RN * Do you have serious difficulty walking or climbing stairs? Answer Date of Assessment Author Yes 01/20/2014 1:11 PM Antonio Flores RN * Do you have difficulty dressing or bathing? Answer Date of Assessment Author Yes 01/20/2014 1:11 PM Antonio Flores RN * Because of a physical, mental, or emotional condition, do you have difficulty doing errands alone such as visiting a doctor's office or shopping? Answer Date of Assessment Author Yes 01/20/2014 1:11 PM Antonio Flores RN documented as of this encounter Mental Status * Because of a physical, mental, or emotional condition, do you have serious difficulty concentrating, remembering, or making decisions? Answer Entry Date Author Yes 01/20/2014 1:11 PM Antonio Flores RN documented in this encounter Plan of Treatment Not on file documented as of this encounter Visit Diagnoses Not on filedocumented in this encounter Care Teams Silk Screen Etcher Relationship Specialty Start Date End Date Mervat Banuelos MD [address] [place] [address] PCP - General Internal Medicine 05/13/11 04/02/23 documented as of this encounter
--- OUTSIDE RECORDS SUMMARY | 2025-05-30 12:25 | XMS_ITS | Clinical Summary ---
Author Organization [facility] Address [address] [place] [address] Care Team Providers Care Cider Press Operator Name Role Phone Unavailable Primary Care Provider Unavailabl e Social History Tobacco Use Types Packs/Day Years Used Date Smoking Tobacco: Never Assessed Comments Unknown Sex and Gender Information Value Date Recorded Sex Assigned at Not on file Legal Sex Female 10:12 PM EDT Gender Identity Not on file Sexual Orientation Not on file Plan of Treatment Not on file Insurance MEDICARE
--- OUTSIDE RECORDS SUMMARY | 2025-05-30 12:25 | XMS_ITS | Encounter Summary ---
Author Organization [facility] Address [address] [place] [address] Care Team Providers Care Feed Preparation Operator Name Role Phone Mervat Banuelos MD Primary Care Provider [phone] Source Comments In the event this information is protected by the Federal Confidentiality of Alcohol and Drug AbusePatient Records regulations: The Federal rules restrict any use of the information to criminally investigate or prosecute any alcohol or drug abuse patient.[facility] Encounter Details Date Type Department Care Team (Late st Contact Info) Description 09/03/2013 Patient Msg Medical Records [address] [place] [address] Provider, Ccf labs Social History Tobacco Use Types Packs/Day Years [...] on filedocumented in this encounter Care Teams Feed Preparation Operator Relationship Specialty Start Date End Date Mervat Banuelos MD [address] [place] [address] PCP - General Internal Medicine 05/13/11 04/02/23 documented as of this encounter
--- OUTSIDE RECORDS SUMMARY | 2025-05-30 12:25 | XMS_ITS | Encounter Summary ---
Author Organization [facility] [employer] [facility] Address [id number] [address] [place] [address] Care Team Providers Care Facilities Flight Check Pilot Name Role Phone Antonio Rangel DO Primary Care Provider + [phone] Encounter Details Date Type Department Care Team (Late st Contact Info) Description 06/24/2023 Orders Only [facility] Internal Medicine - Family Medicine [address] [place] [id number] External, Scanning Provider Social History Tobacco Use Types Packs/Day Years Used Date Smoking Tobacco: Never Smokeless Tobacco: Never Childcare Answer Date Recorded Childcare Unknown 03/24/2019 Employment Answer Date Recorded Employment Unknown 03/24/2019 Purpose - Life Answer Date Recorded Purpose and direction in life Unknown Comments Unknown Sex and Gender Information Value Date Recorded Sex Assigned at Not on file Legal Sex Female 11:50 AM EDT Gender Identity Not on file Sexual Orientation Not on file documented as of this encounter Plan of Treatment Not on file documented as of this encounter Procedures Procedure Name Priority Date/Time Associated Diagnosis Comments MULTIPLE LABS Routine 06/24/2023 1:47 PM EDT documented in this encounter Results * Multiple labs (06/24/2023 1:47 PM EDT) us Scanning Provider External [facility] Final Result MANUALLY TRANSCRIBED RESULTS documented in this encounter Visit Diagnoses Not on filedocumented in this encounter Care Teams Facilities Flight Check Pilot Relationship Specialty Start Date End Date Antonio Rangel DO PCP - General Family Medicine 08/25/23 documented as of this encounter
--- OUTSIDE RECORDS SUMMARY | 2025-05-30 12:26 | XMS_ITS | Encounter Summary ---
Author Organization [facility] Address [address] [place] [address] Care Team Providers Care Maitre D Name Role Phone Mervat Banuelos MD Primary Care Provider [phone] Source Comments In the event this information is protected by the Federal Confidentiality of Alcohol and Drug AbusePatient Records regulations: The Federal rules restrict any use of the information to criminally investigate or prosecute any alcohol or drug abuse patient.[facility] Encounter Details Date Type Department Care Team (Late st Contact Info) Description 09/04/2012 Patient Msg Medical Records [address] [place] [address] Provider, Ccf lipids Social History Tobacco Use Types Packs/Day Years [...] on filedocumented in this encounter Care Teams Maitre D Relationship Specialty Start Date End Date Mervat Banuelos MD [address] [place] [address] PCP - General Internal Medicine 05/13/11 04/02/23 documented as of this encounter
--- OUTSIDE RECORDS SUMMARY | 2025-05-30 12:26 | XMS_ITS | Encounter Summary ---
Author Organization [facility] Address [address] [place] [address] Care Team Providers Care Glass Belt Sander Name Role Phone Mervat Banuelos MD Primary Care Provider [phone] Source Comments In the event this information is protected by the Federal Confidentiality of Alcohol and Drug AbusePatient Records regulations: The Federal rules restrict any use of the information to criminally investigate or prosecute any alcohol or drug abuse patient.[facility] Encounter Details Date Type Department Care Team (Late st Contact Info) Description 01/13/2013 Patient Msg Medical Records [address] [place] [address] Provider, Ccf Request an Appointment Social History Tobacco Use [...] on filedocumented in this encounter Care Teams Glass Belt Sander Relationship Specialty Start Date End Date Mervat Banuelos MD [address] [place] [address] PCP - General Internal Medicine 05/13/11 04/02/23 documented as of this encounter
--- OUTSIDE RECORDS SUMMARY | 2025-05-30 12:26 | XMS_ITS ---
Author Organization [facility] Care Team Providers Care Auto Body Shop Manager Name Role Phone Stan Gallegos Unavailable Unavailable Tracy Hunt Unavailable Unavailable Kayla Tenorio Unavailable Unavailable Beltran COLLIER, Malissa Mcgowan Unavailable Unavailable Bakies, Dayami Unavailable Unavailable Cristiane Haji Unavailable Unavailable Josefa LOZANOCModesta Unavailable Unavailable Allergies and adverse reactions Code CodeSystem Substance Reaction Severity StartDate Concern Status 315734194 SNOMED CT Penicillins Unknown 09/18/2020 activ e adhesive tape Unknown 09/18/2020 active Care Team Name Role Address Phone Organization Dates Tracy Hunt [address], [facility], [place] (Office): : [facility] 10/30/2020 - 11/04/2020 Stan Gallegos [address] [facility] [address], [place], [address], [place] (Office): : : [facility] 10/30/2020 - 11/04/2020 Kayla Tenorio [address] [place], [address], [facility] (Cell): : [facility] 10/30/2020 - 11/04/2020 Malissa Gong SALES OPERATIONS ANALYST [address] [place], [address], [place] (Office): : : [facility] 10/30/2020 - 11/04/2020 Dayami [place], [facility] (Cell): [facility] 10/30/2020 - 11/04/2020 Cristiane Haji [address] [place] [address], [address], [place] (Office): : [facility] 10/30/2020 - 11/04/2020 Modesta BURDICK [address], [address], [facility] (Cell): : : [facility] 10/30/2020 - 11/04/2020 Immunizations Immunization Status Vaccine Details Vaccine Code CodeSystem Date Notes Influenza completed Influenza, high-dose, split virus, quadrivalent, injectable, preservative free 197 CVX created date: 09/19/2020 administere d date: 07/13/2020 Adm. prior to admission Problems Problem # Description Date of onset Resolved Date Code CodeSystem Concern Status 1 ATHEROSCLEROTIC HEART DISEASE OF [place] CORONARY ARTERY WITHOUT ANGINA PECTORIS 10/30/[address] active 2 GASTRO-ESOPHAGEAL REFLUX DISEASE WITHOUT ESOPHAGITIS 10/30/[address] active 3 URINARY TRACT INFECTION, SITE NOT SPECIFIED 10/30/[address] active 4 VITAMIN D DEFICIENCY, UNSPECIFIED 10/30/[address] active 5 ASSISTANT CONSTRUCTION SUPERINTENDENT (CURRENT) USE OF ORAL HYPOGLYCEMIC DRUGS 10/06/[address] active 6 PURE HYPERCHOLESTEROLEM [place], UNSPECIFIED 10/06/[address] active 7 TYPE 2 DIABETES MELLITUS WITHOUT COMPLICATIONS 10/06/[address] active 8 ESSENTIAL (PRIMARY) HYPERTENSION 09/18/[address] active 9 HYPOTHYROIDISM, UNSPECIFIED 09/18/[address] active 10 SUICIDAL IDEATIONS 09/18/2010/03/[address] completed 11 URINARY TRACT INFECTION, SITE NOT SPECIFIED 09/18/2010/03/[address] completed 12 VASCULAR DEMENTIA WITH BEHAVIORAL DISTURBANCE 09/18/[address] active Reason for Referral No Reasons for Referral Entered Social History Social History Observation Description Start Date End Date Code Code System Current Smoking Status Tobacco smoking consumption unknown 060248630 SNOMED CT Sex Assigned At Female 1935 97882-3 [facility] Gender Identity Vital Signs Code Code System Vitals Name Values and Units Timing Information 9279-1 [facility] Respiratory Rate Value=16.0 Units=/m in 11/03/2020 8867-4 [facility] Heart rate Value=57.0 Units=/min 8310-5 [facility] Body Temperature Value=99.0 Units= F 11/03/2020 8462-4 [facility] Blood Pressure-Diastolic Value=56 Un its=mmHg 11/03/2020 8480-6 [facility] Blood Pressure-Systolic Cdbje=854 Un its=mmHg 11/03/2020 97438-9 [facility] O2 % BldC Oximetry Value=94.0 Units= % 11/03/2020 16665-6 [facility] Pain Level Value=0.0 11/03/2020 85833-9 [facility] Weight Pecwi=609.0 Units=Lbs 8302-2 [facility] Height Value=62.0 Units=Inches 10/06/2020
--- OUTSIDE RECORDS SUMMARY | 2025-05-30 12:26 | XMS_ITS | Encounter Summary ---
Author Organization [facility] Address [address] [place] [address] Care Team Providers Care Sheet Catcher Name Role Phone Mervat Banuelos MD Primary Care Provider [phone] Source Comments In the event this information is protected by the Federal Confidentiality of Alcohol and Drug AbusePatient Records regulations: The Federal rules restrict any use of the information to criminally investigate or prosecute any alcohol or drug abuse patient.[facility] Encounter Details Date Type Department Care Team (Late st Contact Info) Description 04/06/2014 Get Medical Advice Internal Medicine [facility] [address] [place] [address] Mervat Banuelos MD [address] [place] [address] RE: Medication Question (Not Renewal) Social History Tobacco Use Types Packs/Day Years Used Date Smoking Tobacco: Never Smokeless Tobacco: Never Alcohol Use Standard Drinks/Week Comments Yes 0 (1 standard drink = 0.6 oz pur e alcohol) occasionally Comments No Sex and Gender Information Value Date Recorded Sex Assigned at Female 06/19/2022 8:40 PM EDT Legal Sex Female 8:57 AM EST Gender Identity Female 06/19/2022 8:40 PM EDT Sexual Orientation Straight 06/19/2022 8: 40 PM EDT documented as of this encounter Functional Status * Are you deaf or do you have serious difficulty hearing? Answer Date of Assessment Author No 04/04/2014 12:47 PM EDT Roslyn Grimes (Rn)(Hist), RN * Are you blind or do you have serious difficulty seeing, even when wearing glasses? Answer Date of Assessment Author No 04/04/2014 12:47 PM EDT Roslyn Grimes (Rn)(Hist), RN * Do you have serious difficulty walking or climbing stairs? Answer Date of Assessment Author Yes 04/04/2014 12:47 PM EDT Roslyn Grimes (Rn)(Hist), RN * Do you have difficulty dressing or bathing? Answer Date of Assessment Author Yes 04/04/2014 12:47 PM EDT Roslyn Grimes (Rn)(Hist), RN * Because of a physical, mental, or emotional condition, do you have difficulty doing errands alone such as visiting a doctor's office or shopping? Answer Date of Assessment Author No 04/04/2014 12:47 PM EDT Roslyn Grimes (Rn)(Hist), RN documented as of this encounter Mental Status * Because of a physical, mental, or emotional condition, do you have serious difficulty concentrating, remembering, or making decisions? Answer Entry Date Author No 04/04/2014 12:47 PM EDT Roslyn Grimes (Rn)(Hist), RN documented in this encounter Plan of Treatment Not on file documented as of this encounter Visit Diagnoses Not on filedocumented in this encounter Care Teams Sheet Catcher Relationship Specialty Start Date End Date Mervat Banuelos MD [address] [place] [address] PCP - General Internal Medicine 05/13/11 04/02/23 documented as of this encounter
--- OUTSIDE RECORDS SUMMARY | 2025-05-30 12:26 | XMS_ITS | Encounter Summary ---
Author Organization [facility] Address [address] [place] [address] Care Team Providers Care Hearing Therapist Name Role Phone Mervat Banuelos MD Primary Care Provider [phone] Source Comments In the event this information is protected by the Federal Confidentiality of Alcohol and Drug AbusePatient Records regulations: The Federal rules restrict any use of the information to criminally investigate or prosecute any alcohol or drug abuse patient.[facility] Encounter Details Date Type Department Care Team (Late st Contact Info) Description 06/05/2011 Patient Msg Medical Records [address] [place] [address] Provider, [facility] RE: Patient Registration Completed Social History Tobacco Use Types Packs/Day Years [...] on filedocumented in this encounter Care Teams Hearing Therapist Relationship Specialty Start Date End Date Mervat Banuelos MD [address] [place] [address] PCP - General Internal Medicine 05/13/11 04/02/23 documented as of this encounter
--- OUTSIDE RECORDS SUMMARY | 2025-05-30 12:26 | XMS_ITS | Clinical Summary ---
Author Organization [facility] Address [id number] [address] [place] [address] Care Team Providers Care Director Insurance Name Role Phone Antonio Rangel Primary Care Provider [phone] Allergies Active Allergy Reactions Criticality Noted Date Comments Adhesive Itching 04/29/2013 ADHESIVE TAPE Lactose Diarrhea 01/15/2018 no cow's milk Penicillin 10/18/2016 Medications atorvastatin (LIPITOR) 10 mg tablet Take 1 tablet (10 mg total) by mouth in the morning. Active omeprazole (PriLOSEC) 40 mg capsule Take 1 capsule (40 mg total) by mouth in the morning. PT DOES NOT HAVE MEDICATION YET. 7 Active potassium chloride (KLOR-CON) 20 mEq packet Take 1 packet (20 mEq total) by mouth in the morning. Active levothyroxine (SYNTHROID) 125 MCG tablet Take 1 tablet (125 mcg total) by mouth in the morning. Active sertraline (ZOLOFT) 100 mg tablet Take 1 tablet (100 mg total) by mouth in the morning. Active busPIRone (BUSPAR) 7.5 mg tablet Take 1 tablet (7.5 mg total) by mouth in the morning and 1 tablet (7.5 mg total) before bedtime. Active LORazepam (ATIVAN) 0.5 mg tablet Take 1 tablet (0.5 mg total) by mouth every 8 (eight) hours as needed for anxiety. Active indapamide (LOZOL) 2.5 mg tablet Take 1 tablet (2.5 mg total) by mouth every morning. Active dapagliflozin propanediol (FARXIGA) 10 mg tablet Take 1 tablet (10 mg total) by mouth in the morning. 3 Active lisinopriL (PRINIVIL,ZESTRI L) 5 mg tablet Take 1 tablet (5 mg total) by mouth in the morning. 3 Active aspirin 81 mg chewable tablet Chew 1 tablet (81 mg total) and swallow in the morning. 3 Active spironolactone (ALDACTONE) 25 mg tablet Take 0.5 tablets (12.5 mg total) by mouth in the morning. 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 10/31/2023 GERD (gastroesophageal reflux disease) 4 NSTEMI (non-ST elevated myocardial infarction) 1 10/26/2022 Lumbar spondylosis 08/19/2023 Hypokalemia 07/09/2023 Other abnormalities of gait and mobility 023 Muscle weakness (generalized) 07/09/2023 Sleep disturbance 01/17/2023 Pedal edema 01/17/2023 Type 2 diabetes mellitus wit h stage 3a chronic kidney disease, without long-term current use of insulin 12/03/2022 Schizoaffective disorder 11/03/2022 COVID-19 10/16/2022 Pain in thoracic spine 10/11/2022 Acute low back pain without sciatica 10/11/2022 Vascular dementia with behavior disturbance 09/14 Dysuria 10/11/2022 Acute stress reaction 10/11/2022 Essential hypertension 10/11/2022 Overview (10/11/2022): Overview: Home regime: Amlodipine 2.5 mg daily, and Lisinopril 40 mg daily Unable to take po d/t partial obstruction. BP poorly controlled --will change scheduled IV metoprolol to scheduled IV labetalol for better BP control --prn hydralazine -- restart home regimen once able to take po Kidney stone 10/11/2022 Lactose intolerance 10/11/2022 Osteopenia 10/11/2022 Hypothyroidism 10/11/2022 Overview (10/11/2022): Overview: Home Regime: Synthroid 75 mcg daily -start home regime once able to take po Symptomatic states associated with artificial me nopause 10/11/2022 Overview (10/11/2022): Overview: 05/23 DXA Recurrent major depression in partial remission 12/01/2018 Status post replacement of left shoulder joint 0 04/23/2018 S/P reverse total shoulder arthroplasty, left Vitamin D deficiency 03/05/2018 Cognitive decline 03/04/2018 Recurrent falls 03/04/2018 Dermatomyositis 01/01/2018 S/P repair of paraesophageal hernia 11/25/2016 ELTON (obstructive sleep apnea) 10/08/2016 Overview (10/11/2022): Overview: History of ELTON, wears CPAP at home difficulty w/ mask lst night d/t NG tube --resume nocturnal CPAP when feasible. 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 Silva d/t obesity and had been managed conservatively 10/06, OSH w/ abdominal pain, n/v w/ coffee ground emesis CT: Dilated fluid-filled esophagus and large hiatal hernia with fluid/debris filled intrathoracic stomach. Suggesting gastric volvulus with some contrast passing. Incomplete obstruction. Per surgery, the volvulus seems to have resolved clinically, but patient still needs surgery when it can be scheduled. Plan: - OR planned for lap, possible open paraesophageal hernia w/ EGD tomorrow (10/09) - NPO NGT to LIWS - continue protonix gtt - serial H&H, monitor for bleeding - can have ice chips per surgery Mixed hyperlipidemia 08/31/2012 Overview (10/11/2022): Overview: Was on Lipitor 10 mg daily at home begin regime once able to take po Osteoarthrosis involving lower leg 02/21/2012 Other specified congenital anomaly of skin 01/01 Rosacea 01/01/2007 Actinic keratosis 02/21/2006 Personal history of other malignant neoplasm of skin 02/21/2006 Resolved Problems Problem Noted Date Diagnosed Date Resolved Date Pure hypercholesterolemia 06/20/2023 Obesity, Class II, BMI 35-39.9 03/05/2018 02/04/2024 Encounters Date Type Department Care Team Description 05/11/2025 Continuing Care [facility] Internal [facility] - Family Medicine [address] [place] [address] Antonio Rangel, Vascular dementia with behavior disturbance ([facility]) (Primary Dx); Lumbar spondylosis; Schizoaffective disorder, unspecified type ([facility]) 03/30/2025 Continuing Care [facility] Internal Medicine - Family [facility] [address] [place] [address] Antonio Rangel, Vascular dementia with behavior disturbance ([facility]) (Primary Dx); Acute right-sided low back pain without sciatica; Dysuria; Type 2 diabetes mellitus with stage 3a chronic kidney disease, without long-term current use of insulin ([facility]) 03/29/2025 Telephone [facility] [address] [place] [address] Shikha Cespedes from Last 3 Months Immunizations Immunization Administration Dates Next Due COVID-19, mRNA, LNP-S, PF, 100mcg/0.5mL Dose 01/26/2021 H1N1 Inj Preservative Free 09/28/2009 Influenza High Dose Preserva tive Free IM 06/30/2019,07/15/2018,10/07/2017,08/23,08/23/2015 Influenza, Im Trivalent Preservative 07/08/2014 Influenza, Injectable, quadr ivalent (PF) 08/27/2023 Influenza, Unspecified 06/26/2011 Pneumococcal Conjugate 13-Valent 08/23/2015 Pneumococcal Polysaccharide 09/01/2014 Tdap 05/13/2011 Zoster Live 05/13/2011 Social History Tobacco Use Types Packs/Day Years [...] on file Sexual Orientation Not on file Last Filed Vital Signs Vital Sign Reading Time Taken Comments Blood Pressure 143/80 05/11/2025 10:17 PM EDT Pulse 73 05/11/2025 10:17 PM EDT Temperature 36.7 C (98 F) 05/11/2025 10:17 PM EDT Respiratory Rate 16 05/11/2025 10:17 PM EDT Oxygen Saturation 96% 05/11/2025 10:17 PM EDT Inhaled Oxygen Concentration - - Weight 71.5 kg (157 lb 9.6 oz) 05/11/2025 10:17 PM EDT Height 160 cm (5' 3 ) 08/26/2023 11:50 AM EST Body Mass Index 27.92 08/26/2023 11:50 AM EST Plan of Treatment Health Maintenance Due Date Last Done Comments Depression Screening 1947 Fall Risk Screening 2000 Zoster (Shingles) Vaccine (1 of 2) 07/08/2011 05/13/2011 DTaP,Tdap and Td Vaccines (2 - Td or Tdap) 05/13/2021 05/13/2011 COVID-19 Vaccine (5 - 2023-2 5 season) 2024 05/29/2022, 11/28/2021, 03/01/2021, Additional history exists Tobacco Screening 03/09/2025 03/09/2024 Influenza Vaccine 06/13/2025 08/27/2023, , 07/15/2018, Additional history exists Goals Goal Patient Goal Type Associated Problems Recent Progress Patient-Stated? Author <enter goal here> General Yes Jagruti Guido LSW Note: Evaluation of progress towards goal: plan return to [facility] Medical Devices Not on file Insurance MEDICARE [place] [facility] [place] Advance Directives Documents on File Type Date Recorded Patient School Program Director Expl anation Durable Power of Clerical Warehouse Worker Living Will 09/18/2020 5:41 PM Living Sudhir l 09-18-20 Durable Power of Clerical Warehouse Worker 09/18/2020 5:39 PM Medical Power of Clerical Warehouse Worker 09-18-20 * DNR Comfort Care (DNRCC) [place] (Latest Code Status on File) Date Activated Date Inactivated Comments 08/27/2023 3:29 PM 08/29/2023 8:10 PM * DNR Comfort Care Arrest (DNR-CCA) [place] Date Activated Date Inactivated Comments 08/26/2023 5:47 PM 08/27/2023 3:29 PM * Full Code Date Activated Date Inactivated Comments 08/26/2023 2:00 PM 08/26/2023 5:47 PM * Full Code Date Activated Date Inactivated Comments 08/26/2023 4:59 AM 08/26/2023 11:22 AM Care Teams Director Insurance Relationship Specialty Start Date End Date Antonio Rangel DO PCP - General Family Medicine 08/25/23
--- OUTSIDE RECORDS SUMMARY | 2025-05-30 12:26 | XMS_ITS | Encounter Summary ---
Author Organization [facility] Address [address] [place] [address] Care Team Providers Care Equipment Operator Name Role Phone Mervat Banuelos MD Primary Care Provider [phone] Source Comments In the event this information is protected by the Federal Confidentiality of Alcohol and Drug AbusePatient Records regulations: The Federal rules restrict any use of the information to criminally investigate or prosecute any alcohol or drug abuse patient.[facility] Encounter Details Date Type Department Care Team (Late st Contact Info) Description 11/20/2017 Patient Msg Internal Medicine [facility] [place] [place] [address] Mervat Banuelos MD [address] [place] [address] labs Social History Tobacco Use Types Packs/Day [...] hearing? Answer Date of Assessment Author Yes 01/19/2015 11:22 AM France Flores RN * Are you blind or do you have serious difficulty seeing, even when wearing glasses? Answer Date of Assessment Author No 01/19/2015 11:22 AM France Flores RN * Do you have serious difficulty walking or climbing stairs? Answer Date of Assessment Author No 01/19/2015 11:22 AM France Flores RN * Do you have difficulty dressing or bathing? Answer Date of Assessment Author No 01/19/2015 11:22 AM France Flores RN * Because of a physical, mental, or emotional condition, do you have difficulty doing errands alone such as visiting a doctor's office or shopping? Answer Date of Assessment Author No 01/19/2015 11:22 AM France Flores RN documented as of this encounter Mental Status * Because of a physical, mental, or emotional condition, do you have serious difficulty concentrating, remembering, or making decisions? Answer Entry Date Author Yes 01/19/2015 11:22 AM France Flores RN documented in this encounter Plan of Treatment Not on file documented as of this encounter Visit Diagnoses Not on filedocumented in this encounter Care Teams Equipment Operator Relationship Specialty Start Date End Date Mervat Banuelos MD [address] [place] [address] PCP - General Internal Medicine 05/13/11 04/02/23 documented as of this encounter
--- OUTSIDE RECORDS SUMMARY | 2025-05-30 12:26 | XMS_ITS | Encounter Summary ---
Author Organization [facility] Address [address] [place] [address] Care Team Providers Care Frame Nailer Name Role Phone Mervat Banuelos MD Primary Care Provider Source Comments In the event this information is protected by the Federal Confidentiality of Alcohol and Drug AbusePatient Records regulations: The Federal rules restrict any use of the information to criminally investigate or prosecute any alcohol or drug abuse patient.[facility] Encounter Details Date Type Department Care Team (Late st Contact Info) Description 09/25/2014 Get Medical Advice Internal Medicine [facility] [address] [place] [address] Mervat Banuelos MD [address] [place] [address] RE: Test Result Question Social History Tobacco Use Types Packs/Day Years [...] hearing? Answer Date of Assessment Author No 09/06/2014 9:53 AM Jaycee Coker LPN * Are you blind or do you have serious difficulty seeing, even when wearing glasses? Answer Date of Assessment Author No 09/06/2014 9:53 AM Jaycee Coker LPN * Do you have serious difficulty walking or climbing stairs? Answer Date of Assessment Author No 09/06/2014 9:53 AM Jaycee Coker LPN * Do you have difficulty dressing or bathing? Answer Date of Assessment Author No 09/06/2014 9:53 AM Jaycee Coker LPN * Because of a physical, mental, or emotional condition, do you have difficulty doing errands alone such as visiting a doctor's office or shopping? Answer Date of Assessment Author No 09/06/2014 9:53 AM Jaycee Coker LPN documented as of this encounter Mental Status * Because of a physical, mental, or emotional condition, do you have serious difficulty concentrating, remembering, or making decisions? Answer Entry Date Author No 09/06/2014 9:53 AM Jaycee Coker LPN documented in this encounter Plan of Treatment Not on file documented as of this encounter Visit Diagnoses Not on filedocumented in this encounter Care Teams Frame Nailer Relationship Specialty Start Date End Date Mervat Banuelos MD [address] [place] [address] PCP - General Internal Medicine 05/13/11 04/02/23 documented as of this encounter
--- OUTSIDE RECORDS SUMMARY | 2025-05-30 12:26 | XMS_ITS | Encounter Summary ---
Author Organization [facility] Address [address] [place] [address] Care Team Providers Care Pig Breeder Name Role Phone Mervat Banuelos MD Primary Care Provider Source Comments In the event this information is protected by the Federal Confidentiality of Alcohol and Drug AbusePatient Records regulations: The Federal rules restrict any use of the information to criminally investigate or prosecute any alcohol or drug abuse patient.[facility] Encounter Details Date Type Department Care Team (Late st Contact Info) Description 04/01/2018 Patient Msg Nutrition Therapy [address] [place] [address] Rej, New Car Get Ready Mechanic [facility] [address] [place] [address] RE: Appointment Cancellation Request Social History Tobacco Use Types Packs/Day Years [...] hearing? Answer Date of Assessment Author No 03/16/2018 12:36 PM EDT Roslyn Servin RN * Are you blind or do you have serious difficulty seeing, even when wearing glasses? Answer Date of Assessment Author No 03/16/2018 12:36 PM EDT Roslyn Servin RN * Do you have serious difficulty walking or climbing stairs? Answer Date of Assessment Author Yes 03/16/2018 12:36 PM EDT Roslyn Servin RN * Do you have difficulty dressing or bathing? Answer Date of Assessment Author Yes 03/16/2018 12:36 PM EDT Roslyn Servin RN * Because of a physical, mental, or emotional condition, do you have difficulty doing errands alone such as visiting a doctor's office or shopping? Answer Date of Assessment Author Yes 03/16/2018 12:36 PM EDT Roslyn Servin RN documented as of this encounter Mental Status * Because of a physical, mental, or emotional condition, do you have serious difficulty concentrating, remembering, or making decisions? Answer Entry Date Author No 03/16/2018 12:36 PM Roslyn Corey RN documented in this encounter Plan of Treatment Not on file documented as of this encounter Visit Diagnoses Not on filedocumented in this encounter Care Teams Pig Breeder Relationship Specialty Start Date End Date Mervat Banuelos MD [address] [place] [address] PCP - General Internal Medicine 05/13/11 04/02/23 documented as of this encounter
--- OUTSIDE RECORDS SUMMARY | 2025-05-30 12:26 | XMS_ITS | Encounter Summary ---
Author Organization [facility] Address [address] [place] [address] Care Team Providers Care Core Composer Machine Tender Name Role Phone Mervat Banuelos MD Primary Care Provider [phone] Source Comments In the event this information is protected by the Federal Confidentiality of Alcohol and Drug AbusePatient Records regulations: The Federal rules restrict any use of the information to criminally investigate or prosecute any alcohol or drug abuse patient.[facility] Encounter Details Date Type Department Care Team (Late st Contact Info) Description 02/24/2013 Patient Msg Medical Records [address] [place] [address] Provider, Ccf labs Social History Tobacco Use [...] on filedocumented in this encounter Care Teams Core Composer Machine Tender Relationship Specialty Start Date End Date Mervat Banuelos MD [address] [place] [address] PCP - General Internal Medicine 05/13/11 04/02/23 documented as of this encounter
--- OUTSIDE RECORDS SUMMARY | 2025-05-30 12:26 | XMS_ITS | Encounter Summary ---
Author Organization [facility] Address [address] [place] [address] Care Team Providers Care Asphalt Tamper Name Role Phone Mervat Banuelos MD Primary Care Provider [phone] Source Comments In the event this information is protected by the Federal Confidentiality of Alcohol and Drug AbusePatient Records regulations: The Federal rules restrict any use of the information to criminally investigate or prosecute any alcohol or drug abuse patient.[facility] Encounter Details Date Type Department Care Team (Late st Contact Info) Description 07/16/2018 Patient Msg Internal Medicine [facility] [place] [address] Mervat Banuelos MD [address] [place] [address] labs Social History Tobacco Use Types [...] on filedocumented in this encounter Care Teams Asphalt Tamper Relationship Specialty Start Date End Date Mervat Banuelos MD [address] [place] [address] PCP - General Internal Medicine 05/13/11 04/02/23 documented as of this encounter
--- OUTSIDE RECORDS SUMMARY | 2025-05-30 12:26 | XMS_ITS | Encounter Summary ---
Author Organization [facility] Address [address] [place] [address] Care Team Providers Care Shaft Tender Name Role Phone Mervat Banuelos MD Primary Care Provider [phone] Source Comments In the event this information is protected by the Federal Confidentiality of Alcohol and Drug AbusePatient Records regulations: The Federal rules restrict any use of the information to criminally investigate or prosecute any alcohol or drug abuse patient.[facility] Encounter Details Date Type Department Care Team (Late st Contact Info) Description 03/14/2014 Get Medical Advice Internal Medicine [facility] [address] [place] [address] Mervat Banuelos MD [address] [place] [address] Test Result Question Social History Tobacco Use [...] 1:11 PM ANTONIT Antonio Story RN * Because of a physical, mental, or emotional condition, do you have difficulty doing errands alone such as visiting a doctor's office or shopping? Answer Date of Assessment Author Yes 01/20/2014 1:11 PM ANTONIT Antonio Story RN documented as of this encounter Mental Status * Because of a physical, mental, or emotional condition, do you have serious difficulty concentrating, remembering, or making decisions? Answer Entry Date Author Yes 01/20/2014 1:11 PM Antonio Flores RN documented in this encounter Plan of Treatment Not on file documented as of this encounter Visit Diagnoses Not on filedocumented in this encounter Care Teams Shaft Tender Relationship Specialty Start Date End Date Mervat Banuelos MD [address] [place] [id number] PCP - General Internal Medicine 05/13/11 04/02/23 documented as of this encounter
--- OUTSIDE RECORDS SUMMARY | 2025-05-30 12:26 | XMS_ITS | Encounter Summary ---
Author Organization [facility] Address [address] [place] [address] Care Team Providers Care Bioinformatics Programmer Name Role Phone Mervat Banuelos MD Primary Care Provider [phone] Source Comments In the event this information is protected by the Federal Confidentiality of Alcohol and Drug AbusePatient Records regulations: The Federal rules restrict any use of the information to criminally investigate or prosecute any alcohol or drug abuse patient.[facility] Encounter Details Date Type Department Care Team (Late st Contact Info) Description 02/07/2023 Patient Msg Internal Medicine [facility] [place] [place] [address] [id number] Provider, Ccf Your Blood Pressure Social History Tobacco Use Types Packs/Day Years Used Date Smoking Tobacco: Never Smokeless Tobacco: Never Alcohol Use Standard Drinks/Week Comments Yes 0 (1 standard drink = 0.6 oz pur e alcohol) rare now; in past social Social Connection and Isolation Panel Answer Date Recorded In a typical week, how many times do you talk on the phone with family, friends, or neighbors? More than three times a week 09/04/2020 How often do you get togethe r with friends or relatives? More than three times a week 09/04/2020 How often do you attend chur ch or jewish services? Never 09/04/2020 Do you belong to any clubs o r organizations such as christianity groups, unions, fraternal or athletic groups, or school groups? No 09/04/2020 How often do you attend meet ings of the clubs or organizations you belong to? Never 09/04/2020 Are you , , di vorced, , never , or living with a partner? 09/04/2020 Overall Financial Resource Strain (CARDIA) Answe r Date Recorded How hard is it for you to pa y for the very basics like food, housing, medical care, and heating? Not hard at all 09/04/2020 PHQ-2 Answer Date Recorded PHQ-2 score 0 09/04/2020 [facility] [place] of Occupat ional Health - Occupational Stress Questionnaire Answer Date Recorded Do you feel stress - tense, restless, nervous, or anxious, or unable to sleep at night because your mind is troubled all the time - these days? To some extent 09/04/2020 Hunger Vital Sign Answer Date Recorded Within the past 12 months, y ou worried that your food would run out before you got the money to buy more. Never true 09/04/20 20 Within the past 12 months, t he food you bought just didn't last and you didn't have money to get more. Never true 09/04/2020 PRAPARE - Transportation Answer Date Re corded In the past 12 months, has l ack of transportation kept you from medical appointments or from getting medications? No 08/14 In the past 12 months, has l ack of transportation kept you from meetings, work, or from getting things needed for daily living? No 09/04/2020 Area Deprivation Index Answer Date Loy rded National Score (1-100), lower number is lower ri sk Not on file 2020 State Score (1-10), lower number is lower risk N ot on file 2020 Data from: https://www.neighborhoodatlas.medicine.[facility].edu/. Last address used for calculation Not on file 2020 Comments No Sex and Gender Information Value [...] on filedocumented in this encounter Care Teams Bioinformatics Programmer Relationship Specialty Start Date End Date Mervat Banuelos MD [address] [place] [address] PCP - General Internal Medicine 05/13/11 04/02/23 documented as of this encounter
--- OUTSIDE RECORDS SUMMARY | 2025-05-30 12:26 | XMS_ITS | Encounter Summary ---
Author Organization [facility] Address [address] [place] [address] Care Team Providers Care Four H Agent Name Role Phone Mervat Banuelos MD Primary Care Provider [phone] Source Comments In the event this information is protected by the Federal Confidentiality of Alcohol and Drug AbusePatient Records regulations: The Federal rules restrict any use of the information to criminally investigate or prosecute any alcohol or drug abuse patient.[facility] Encounter Details Date Type Department Care Team (Late st Contact Info) Description 07/22/2017 Patient Msg Internal Medicine [facility] [place] [address] Mervat Banuelos MD [address] [place] [address] RE: Request an Appointment Social History Tobacco [...] on filedocumented in this encounter Care Teams Four H Agent Relationship Specialty Start Date End Date Mervat Banuelos MD [address] [place] [address] PCP - General Internal Medicine 05/13/11 04/02/23 documented as of this encounter
--- OUTSIDE RECORDS SUMMARY | 2025-05-30 12:26 | XMS_ITS | Encounter Summary ---
Author Organization [facility] Address [address] [place] [address] Care Team Providers Care Heritage Consultant Name Role Phone Mervat Banuelos MD Primary Care Provider [phone] Source Comments In the event this information is protected by the Federal Confidentiality of Alcohol and Drug AbusePatient Records regulations: The Federal rules restrict any use of the information to criminally investigate or prosecute any alcohol or drug abuse patient.[facility] Encounter Details Date Type Department Care Team (Late st Contact Info) Description 05/15/2011 Patient Msg Medical Records [address] [place] [address] Provider, Ccf RE:(No subject) Social History Tobacco Use Types Packs/Day Years [...] on filedocumented in this encounter Care Teams Heritage Consultant Relationship Specialty Start Date End Date Mervat Banuelos MD [address] [place] [address] PCP - General Internal Medicine 05/13/11 04/02/23 documented as of this encounter
--- OUTSIDE RECORDS SUMMARY | 2025-05-30 12:26 | XMS_ITS | Encounter Summary ---
Author Organization [facility] Address [address] [place] [address] Care Team Providers Care Consulting Solution Director Name Role Phone Mervat Banuelos MD Primary Care Provider [phone] Source Comments In the event this information is protected by the Federal Confidentiality of Alcohol and Drug AbusePatient Records regulations: The Federal rules restrict any use of the information to criminally investigate or prosecute any alcohol or drug abuse patient.[facility] Encounter Details Date Type Department Care Team (Late st Contact Info) Description 04/01/2018 Patient Msg Nutrition Therapy [address] [place] [address] Rej, Military Personnel Specialist On License Of [facility] [address] [place] [address] RE: Appointment Cancellation Request Social [...] on filedocumented in this encounter Care Teams Consulting Solution Director Relationship Specialty Start Date End Date Mervat Banuelos MD [address] [place] [address] PCP - General Internal Medicine 05/13/11 04/02/23 documented as of this encounter
--- OUTSIDE RECORDS SUMMARY | 2025-05-30 12:26 | XMS_ITS | Encounter Summary ---
Author Organization [facility] Address [address] [place] [address] Care Team Providers Care Window Tinter Name Role Phone Mervat Banuelos MD Primary Care Provider [phone] Source Comments In the event this information is protected by the Federal Confidentiality of Alcohol and Drug AbusePatient Records regulations: The Federal rules restrict any use of the information to criminally investigate or prosecute any alcohol or drug abuse patient.[facility] Encounter Details Date Type Department Care Team (Late st Contact Info) Description 11/26/2011 Patient Msg Medical Records [address] [place] [address] Provider, Ccf test results Social History Tobacco Use Types Packs/Day Years [...] on filedocumented in this encounter Care Teams Window Tinter Relationship Specialty Start Date End Date Mervat Banuelos MD [address] [place] [address] PCP - General Internal Medicine 05/13/11 04/02/23 documented as of this encounter
--- OUTSIDE RECORDS SUMMARY | 2025-05-30 12:26 | XMS_ITS | Encounter Summary ---
Author Organization [facility] Address [address] [place] [address] Care Team Providers Care Retail Greeter Name Role Phone Mervat Banuelos MD Primary Care Provider [phone] Source Comments In the event this information is protected by the Federal Confidentiality of Alcohol and Drug AbusePatient Records regulations: The Federal rules restrict any use of the information to criminally investigate or prosecute any alcohol or drug abuse patient.[facility] Encounter Details Date Type Department Care Team (Late st Contact Info) Description 03/28/2014 Patient Msg Medical Records [address] [place] [address] Provider, Ccf neurontin Social History Tobacco Use Types Packs/Day Years [...] of Assessment Author Yes 01/20/2014 1:11 PM EDT Antonio Story RN * Are you blind or do you have serious difficulty seeing, even when wearing glasses? Answer Date of Assessment Author No 01/20/2014 1:11 PM ANTONIT Antonio Story RN * Do you have serious difficulty walking or climbing stairs? Answer Date of Assessment Author Yes 01/20/2014 1:11 PM ANTONIT Antonio Story RN * Do you have difficulty dressing [...] on filedocumented in this encounter Care Teams Retail Greeter Relationship Specialty Start Date End Date Mervat Banuelos MD [address] [place] [address] PCP - General Internal Medicine 05/13/11 04/02/23 documented as of this encounter
--- OUTSIDE RECORDS SUMMARY | 2025-05-30 12:26 | XMS_ITS | Encounter Summary ---
Author Organization [facility] Address [address] [place] [address] Care Team Providers Care Editor In Chief Name Role Phone Mervat Banuelos MD Primary Care Provider [phone] Source Comments In the event this information is protected by the Federal Confidentiality of Alcohol and Drug AbusePatient Records regulations: The Federal rules restrict any use of the information to criminally investigate or prosecute any alcohol or drug abuse patient.[facility] Encounter Details Date Type Department Care Team (Late st Contact Info) Description 09/09/2016 Patient Msg Medical Records [address] [place] [address] Provider, Ccf bone density Social History Tobacco Use Types Packs/Day Years [...] on filedocumented in this encounter Care Teams Editor In Chief Relationship Specialty Start Date End Date Mervat Banuelos MD [address] [place] [address] PCP - General Internal Medicine 05/13/11 04/02/23 documented as of this encounter
--- OUTSIDE RECORDS SUMMARY | 2025-05-30 12:26 | XMS_ITS | Encounter Summary ---
Author Organization [facility] Address [address] [place] [address] Care Team Providers Care Glassblower Name Role Phone Mervat Banuelos MD Primary Care Provider [phone] Source Comments In the event this information is protected by the Federal Confidentiality of Alcohol and Drug AbusePatient Records regulations: The Federal rules restrict any use of the information to criminally investigate or prosecute any alcohol or drug abuse patient.[facility] Encounter Details Date Type Department Care Team (Late st Contact Info) Description 03/14/2014 Patient Msg Medical Records [address] [place], [place] [id number] Provider, Ccf RE:MRI Social History Tobacco Use [...] on filedocumented in this encounter Care Teams Glassblower Relationship Specialty Start Date End Date Mervat Banuelos MD [address] [place] [address] PCP - General Internal Medicine 05/13/11 04/02/23 documented as of this encounter
--- OUTSIDE RECORDS SUMMARY | 2025-05-30 12:26 | XMS_ITS | Encounter Summary ---
Author Organization [facility] Address [address] [place] [address] Care Team Providers Care Retail Management Keyholder Name Role Phone Mervat Banuelos MD Primary Care Provider [phone] Source Comments In the event this information is protected by the Federal Confidentiality of Alcohol and Drug AbusePatient Records regulations: The Federal rules restrict any use of the information to criminally investigate or prosecute any alcohol or drug abuse patient.[facility] Encounter Details Date Type Department Care Team (Late st Contact Info) Description 02/10/2013 Patient Msg Medical Records [address] [place] [address] Provider, Ccf Your Nicole Medical Procedure Social History Tobacco Use Types Packs/Day Years [...] filedocumented in this encounter Care Teams Retail Management Keyholder Relationship Specialty Start Date End Date Mervat Banuelos MD [address] [place] [address] PCP - General Internal Medicine 05/13/11 04/02/23 documented as of this encounter
--- OUTSIDE RECORDS SUMMARY | 2025-05-30 12:26 | XMS_ITS | Encounter Summary ---
Author Organization [facility] Address [address] [place] [address] Care Team Providers Care Utility Tractor Operator Name Role Phone Mervat Banuelos MD Primary Care Provider [phone] Source Comments In the event this information is protected by the Federal Confidentiality of Alcohol and Drug AbusePatient Records regulations: The Federal rules restrict any use of the information to criminally investigate or prosecute any alcohol or drug abuse patient.[facility] Encounter Details Date Type Department Care Team (Late st Contact Info) Description 08/08/2014 Patient Msg Medical Records [address] [place] [address] Provider, Ccf RE: Request an Appointment Social [...] hearing? Answer Date of Assessment Author No 05/31/2014 12:24 PM EDT Bobby Reyes MA * Are you blind or do you have serious difficulty seeing, even when wearing glasses? Answer Date of Assessment Author No 05/31/2014 12:24 PM EDBobby Perdomo MA * Do you have serious difficulty walking or climbing stairs? Answer Date of Assessment Author Yes 05/31/2014 12:24 PM EDBobby Perdomo MA * Do you have difficulty dressing or bathing? Answer Date of Assessment Author No 05/31/2014 12:24 PM EDBobby Perdomo MA * Because of a physical, mental, or emotional condition, do you have difficulty doing errands alone such as visiting a doctor's office or shopping? Answer Date of Assessment Author No 05/31/2014 12:24 PM Bobby Lara MA documented as of this encounter Mental Status * Because of a physical, mental, or emotional condition, do you have serious difficulty concentrating, remembering, or making decisions? Answer Entry Date Author Yes 05/31/2014 12:24 PM Bobby Lara MA documented in this encounter Plan of Treatment Not on file documented as of this encounter Visit Diagnoses Not on filedocumented in this encounter Care Teams Utility Tractor Operator Relationship Specialty Start Date End Date Mervat Banuelos MD [address] [place] [address] PCP - General Internal Medicine 05/13/11 04/02/23 documented as of this encounter
--- OUTSIDE RECORDS SUMMARY | 2025-05-30 12:26 | XMS_ITS | Encounter Summary ---
Author Organization [facility] Address [address] [place] [address] Care Team Providers Care Online Activist Name Role Phone Mervat Banuelos MD Primary Care Provider [phone] Source Comments In the event this information is protected by the Federal Confidentiality of Alcohol and Drug AbusePatient Records regulations: The Federal rules restrict any use of the information to criminally investigate or prosecute any alcohol or drug abuse patient.[facility] Encounter Details Date Type Department Care Team (Late st Contact Info) Description 05/22/2018 Patient Msg Internal Medicine Main [facility] [place] [address] Mervat Banuelos MD [address] [place] [address] labs Social History Tobacco Use Types [...] on filedocumented in this encounter Care Teams Online Activist Relationship Specialty Start Date End Date Mervat Banuelos MD [address] [place] [address] PCP - General Internal Medicine 05/13/11 04/02/23 documented as of this encounter
--- OUTSIDE RECORDS SUMMARY | 2025-05-30 12:26 | XMS_ITS | Encounter Summary ---
Author Organization [facility] Address [address] [place] [address] Care Team Providers Care Insurance Sales Manager Name Role Phone Mervat Banuelos MD Primary Care Provider [phone] Source Comments In the event this information is protected by the Federal Confidentiality of Alcohol and Drug AbusePatient Records regulations: The Federal rules restrict any use of the information to criminally investigate or prosecute any alcohol or drug abuse patient.[facility] Encounter Details Date Type Department Care Team (Late st Contact Info) Description 08/31/2020 [facility] [address] [place], [place] [id number] India Tanner RN Social History Tobacco Use Types Packs/Day Years [...] often do you attend chur ch or sabianism services? Never 09/04/2020 Do you belong to any clubs o r organizations such as baptism groups, unions, fraternal or athletic groups, or [...] Answer Date Recorded PHQ-2 score 0 09/04/2020 [facility] [place] of Occupat ional Health - Occupational Stress [...] things needed for daily living? No 09/04/2020 Comments No Sex and Gender Information Value Date Recorded Sex Assigned at Female 06/19/2022 8:40 PM EDT Legal Sex Female 8:57 AM EST Gender Identity Female 06/19/2022 8:40 PM EDT Sexual Orientation Straight 06/19/2022 8: 40 PM EDT COVID-19 Exposure Response Date Recorded In the last month, have you been in contact with someone who was confirmed or suspected to have Coronavirus / COVID-19? No / Unsure 08/21/2020 2:10 PM EST documented as of this encounter Functional Status * Are you deaf or do you have serious difficulty hearing? Answer Date of Assessment Author No 03/16/2018 12:36 PM Roslyn Corey RN * Are you blind or do you have serious difficulty seeing, even when wearing glasses? Answer Date of Assessment Author No 03/16/2018 12:36 PM Roslyn Corey RN * Do you have serious difficulty walking or climbing stairs? Answer Date of Assessment Author Yes 03/16/2018 12:36 PM Roslyn Corey RN * Do you have difficulty dressing or bathing? Answer Date of Assessment Author Yes 03/16/2018 12:36 PM Roslyn Corey RN * Because of a physical, mental, or emotional condition, do you have difficulty doing errands alone such as visiting a doctor's office or shopping? Answer Date of Assessment Author Yes 03/16/2018 12:36 PM Roslyn Corey RN documented as of this encounter Mental Status * Because of a physical, mental, or emotional condition, do you have serious difficulty concentrating, remembering, or making decisions? 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
--- OUTSIDE RECORDS SUMMARY | 2025-05-30 12:26 | XMS_ITS | Encounter Summary ---
Author Organization [facility] Address [address] [place] [address] Care Team Providers Care Graduate School Dean Name Role Phone Mervat Banuelos MD Primary Care Provider [phone] Source Comments In the event this information is protected by the Federal Confidentiality of Alcohol and Drug AbusePatient Records regulations: The Federal rules restrict any use of the information to criminally investigate or prosecute any alcohol or drug abuse patient.[facility] Encounter Details Date Type Department Care Team (Late st Contact Info) Description 12/08/2017 Get Medical Advice Internal Medicine [facility] [place] [address] Mervat Banuelos MD [address] [place] [address] Upcoming Appointment Question Social History Tobacco Use Types Packs/Day [...] France Flores RN documented in this encounter Miscellaneous Notes * Telephone Encounter - Audrey Hernandez - 12/08/2017 10:58 AM EST Please off er pt an appt in resident Clinic or a staff slot documented in this encounter Plan of Treatment Not on file documented as of this encounter Visit Diagnoses Not on filedocumented in this encounter Care Teams Graduate School Dean Relationship Specialty Start Date End Date Mervat Banuelos MD [address] [place] [address] PCP - General Internal Medicine 05/13/11 04/02/23 documented as of this encounter
--- OUTSIDE RECORDS SUMMARY | 2025-05-30 12:26 | XMS_ITS | Clinical Summary ---
Author Organization [facility] Address [address] [place] [address] Phone Care Team Providers Care Electric Powerline Examiner Name Role Phone Mervat Banuelos MD Primary Care Provider [phone] Social History Tobacco Use Types Packs/Day Years Used Date Smoking Tobacco: Never Assessed Comments Unknown Sex and Gender Information Value Date Recorded Sex Assigned at Not on file Legal Sex Female 4:37 PM EST Gender Identity Not on file Sexual Orientation Not on file Plan of Treatment Not on file Care Teams Electric Powerline Examiner Relationship Specialty Start Date End Date Mervat Banuelos MD PCP - General 06/28/11
--- OUTSIDE RECORDS SUMMARY | 2025-05-30 12:26 | XMS_ITS | Encounter Summary ---
Author Organization [facility] Address [address] [place] [address] Care Team Providers Care Piping Manager Name Role Phone Mervat Banuelos MD Primary Care Provider [phone] Source Comments In the event this information is protected by the Federal Confidentiality of Alcohol and Drug AbusePatient Records regulations: The Federal rules restrict any use of the information to criminally investigate or prosecute any alcohol or drug abuse patient.[facility] Encounter Details Date Type Department Care Team (Late st Contact Info) Description 04/01/2018 Patient Msg Geriatrics [address] [place] [address] Carol Galvez MD [address] [place] [address] RE: Appointment Cancellation Request Social History Tobacco [...] on filedocumented in this encounter Care Teams Piping Manager Relationship Specialty Start Date End Date Mervat Banuelos MD [address] [place] [address] PCP - General Internal Medicine 05/13/11 04/02/23 documented as of this encounter
--- OUTSIDE RECORDS SUMMARY | 2025-05-30 12:26 | XMS_ITS | Encounter Summary ---
Author Organization [facility] tem Address [id number] [address] [place] [address] Care Team Providers Care Isotope Technologist Name Role Phone Antonio Rangel DO Primary Care Provider [phone] Encounter Details Date Type Department Care Team (Late st Contact Info) Description 05/11/2025 Continuing Care [facility] Internal Medicine - Family Medicine [address] [place] [address] Antonio Rangel DO [address], [facility] [place] [address] Vascular dementia with behavior disturbance ([facility]) (Primary Dx); Lumbar spondylosis; Schizoaffective disorder, unspecified type ([facility]) Social History Tobacco Use Types Packs/Day Years [...] on file documented as of this encounter Last Filed Vital Signs Vital Sign Reading Time Taken Comments Blood Pressure 143/80 05/11/2025 10:17 PM EDT Pulse 73 05/11/2025 10:17 PM EDT Temperature 36.7 C (98 F) 05/11/2025 10:17 PM EDT Respiratory Rate 16 05/11/2025 10:17 PM EDT Oxygen Saturation 96% 05/11/2025 10:17 PM EDT Inhaled Oxygen Concentration - - Weight 71.5 kg (157 lb 9.6 oz) 05/11/2025 10:17 PM EDT Height - - Body Mass Index 27.92 08/26/2023 11:50 AM EST documented in this encounter Progress Notes * Antonio Rangel, - 05/11/2025 11:59 PM EDT Patient Name: Myranda Ackerman Date of : 1935 Date of Service: 05/11/2025 [place] [facility] [place] of Visit: Subsequent Visit Subjective Myranda Ackerman is a 89 y.o. female seen today at residential facility for regular monthly visit. No new medical problems reported by staff or patient. She hasn't had any itchiness lately. Allergies: Adhesive, Lactose, and Penicillin Code Status: [facility] BP 143/80 Pulse 73 Temp 36.7 ??C (98 ??F) Resp 16 Wt 71.5 kg (157 lb 9.6 oz) SpO2 96% BMI 27.92 kg/m?? Physical Exam Vitals reviewed. Constitutional: General: She is awake. She is not in acute distress. Appearance: She is not ill-appearing. Comments: In bed. HENT: Head: Normocephalic. Cardiovascular: Rate and Rhythm: Normal rate and regular rhythm. Pulses: Normal pulses. Heart sounds: Normal heart sounds. No murmur heard. Pulmonary: Effort: Pulmonary effort is normal. No respiratory distress. Breath sounds: Normal breath sounds. No wheezing, rhonchi or rales. Musculoskeletal: Lumbar back: Spasms and tenderness present. Negative right straight leg raise test and negative left straight leg raise test. Left hip: Crepitus present. No deformity or lacerations. Decreased range of motion. Normal strength. Comments: Neurological: Mental Status: She is alert. Psychiatric: Attention and Perception: Attention normal. Mood and Affect: Affect is angry. Speech: Speech normal. Behavior: Behavior is agitated. Behavior is cooperative. Thought Content: Thought content is delusional. Cognition and Memory: Cognition is impaired. Memory is impaired. She exhibits impaired recent memory and impaired remote memory. Comments: Started out pleasant then she got angry when discussing her POA and that she is still here. She was upset with me because I am not getting her out of here Assessment/Plan Summary / Assessment / Plan 1. Vascular dementia with behavior disturbance (CMS-HCC) 2. Lumbar spondylosis 3. Schizoaffective disorder, unspecified type (CMS-HCC) Medically stable. Continue current regimen. I told her that her guardian wants her to stay here and she was upset with me because I am not getting her out of here. I tried to explain again that I don't facilitate transfers to other facilities.The SW does that. All medications reviewed and are medically necessary. ELECTRONICALLY SIGNED BY: Antonio Rangel DO documented in this encounter Plan of Treatment Not on file documented as of this encounter Goals Goal Patient Goal Type Associated Problems Recent Progress Patient-Stated? Author <enter goal here> General Yes Jagruti Guido LSW Note: Evaluation of progress towards goal: plan return to [facility] documented as of this encounter Visit Diagnoses Diagnosis Vascular dementia with behavior disturbance (CMS-HCC)- Primary Lumbar spondylosis Lumbosacral spondylosis without myelopathy Schizoaffective disorder, unspecified type (CMS-HCC) documented in this encounter Care Teams Isotope Technologist Relationship Specialty Start Date End Date Antonio Rangel DO PCP - General Family Medicine 08/25/23 documented as of this encounter
--- OUTSIDE RECORDS SUMMARY | 2025-05-30 12:26 | XMS_ITS | Encounter Summary ---
Author Organization [facility] Address [address] [place] [address] Care Team Providers Care Metal Crafts Teacher Name Role Phone Mervat Banuelos MD Primary Care Provider [phone] Source Comments In the event this information is protected by the Federal Confidentiality of Alcohol and Drug AbusePatient Records regulations: The Federal rules restrict any use of the information to criminally investigate or prosecute any alcohol or drug abuse patient.[facility] Encounter Details Date Type Department Care Team (Late st Contact Info) Description 06/01/2012 Patient Msg Medical Records [address] [place] [address] Provider, [facility] RE:labs Social History Tobacco Use Types Packs/Day Years [...] on filedocumented in this encounter Care Teams Metal Crafts Teacher Relationship Specialty Start Date End Date Mervat Banuelos MD [address] [place] [address] PCP - General Internal Medicine 05/13/11 04/02/23 documented as of this encounter
--- OUTSIDE RECORDS SUMMARY | 2025-05-30 12:26 | XMS_ITS | Encounter Summary ---
Author Organization [facility] Address [address] [place] [address] Care Team Providers Care Veneer Cutter Name Role Phone Mervat Banuelos MD Primary Care Provider Source Comments In the event this information is protected by the Federal Confidentiality of Alcohol and Drug AbusePatient Records regulations: The Federal rules restrict any use of the information to criminally investigate or prosecute any alcohol or drug abuse patient.[facility] Encounter Details Date Type Department Care Team (Late st Contact Info) Description 11/21/2016 Patient Msg Medical Records [address] [place] [address] Provider, [facility] Medicare Wellness Social History Tobacco Use Types Packs/Day Years [...] on filedocumented in this encounter Care Teams Veneer Cutter Relationship Specialty Start Date End Date Mervat Banuelos MD [address] [place] [address] PCP - General Internal Medicine 05/13/11 04/02/23 documented as of this encounter
--- OUTSIDE RECORDS SUMMARY | 2025-05-30 12:26 | XMS_ITS | Clinical Summary ---
Author Organization [facility] Address [address] [place] [address] Care Team Providers Care Media Services Coordinator Name Role Phone Unavailable Primary Care Provider Unavailabl e Allergies Active Allergy Reactions Criticality Noted Date Comments Adhesive Tape (Rosins) Itching 04/29/2013 Lactose Diarrhea 01/15/2018 no cow's milk Penicillins Hives 08/22/2004 sensitive to STATINS [Other] Other: See Comments 06/08/2010 muscle pain Medications BIPAP 13/6 cm H2O with back up of 13 BPM With humidification 1 Device 7 Active Lancing Device with Lancets (ACCU-CHEK SOFT DEV LANCETS) kit 1 Device once daily. 1 Kit 8 Active Cholecalcifero l, Vitamin D3, 1,000 unit cap Take 1 capsule by mouth once daily. 8 Active metFORMIN (GLUCOPHAGE) 1,000 mg tablet Take 1 tablet by mouth twice daily. 180 tablet 3 9 Active Blood-Glucose Meter (ACCU-CHEK FRANCESCA PLUS METER) misc 1 Device once daily. 1 Each 9 Active blood sugar diagnostic (ACCU-CHEK FRANCESCA) test strip Use once daily E11.9 90 Each 3 9 Active levothyroxine (SYNTHROID) 125 mcg tablet TAKE 1 TABLET BY MOUTH DAILY BEFORE BREAKFAST 90 tablet 3 0 Active atorvastatin (LIPITOR) 10 mg tablet TAKE 1 TABLET BY MOUTH ONCE DAILY 90 tablet 3 0 Active Omeprazole 40 mg capsule TAKE 1 CAPSULE BY MOUTH ONCE DAILY 90 capsule 3 0 Active indapamide (LOZOL) 2.5 mg tablet Take 1 tablet by mouth once daily. 90 tablet 4 0 Active sertraline (ZOLOFT) 100 mg tabletIndicati ons:Recurrent major depression in partial remission Take 1 tablet by mouth once daily. 90 tablet 3 0 Active SITagliptin (JANUVIA) 100 mg tablet Take 1 tablet by mouth once daily. 90 tablet 3 0 Active amLODIPine (NORVASC) 2.5 mg tablet Take 2 tablets by mouth once daily. 90 tablet 4 0 Active busPIRone (BUSPAR) 7.5 mg tablet Take 1 tablet by mouth twice daily. 90 tablet 3 0 Active potassium chloride (K-TAB) 10 mEq tablet Take 1 tablet by mouth once daily. 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 Gastric volvulus 10/06/2016 Overview (10/08/2016): History of type III hiatal hernia (intrathoracic [...] - can have ice chips per surgery Hyperlipidemia LDL goal <130 08/31/2012 Overview (10/08/2016): Was on Lipitor 10 mg daily at home begin regime once able to take po Osteoarthritis, knee 07/31/2012 Osteoarthrosis, unspecified whether generalized or localized, lower leg 02/21/2012 Rosacea 01/01/2007 Other specified congenital anomaly of skin 01/01 Other specified disease of sebaceous glands 02/10 Actinic keratosis 02/21/2006 Personal history of other malignant neoplasm of skin 02/21/2006 Symptomatic states associated with artificial me nopause Overview (05/23/2011): 05/23 DXA Osteopenia Kidney stone Lactose intolerance Essential hypertension Overview (10/08/2016): Home regime: Amlodipine 2.5 mg daily, and Lisinopril 40 mg daily Unable to take po d/t partial obstruction. BP poorly controlled --will change scheduled IV metoprolol to scheduled IV labetalol for better BP control --prn hydralazine -- restart home regimen once able to take po Other specified hypothyroidism Overview (10/08/2016): Home Regime: Synthroid 75 mcg daily -start home regime once able to take po Resolved Problems Problem Noted Date Diagnosed Date Resolved Date Proximal humerus fracture 03/11/2018 Overview (03/11/2018): Added automatically from request for surgery [id number] Healthcare maintenance 03/05/201808/31 Closed fracture of left proximal humerus 03/05/2018 08/31/2020 Acute pain of left shoulder due to trauma 03/04/2018 08/31/2020 Aftercare for healing trauma tic fracture of humerus, left 03/04/2018 08/31/2020 Malnutrition of mild degree 10/15/2016 11/20/2017 Contact dermatitis and other eczema, due to unspecified cause 01/01/2007 08/31/2020 Neoplasm of uncertain behavior of skin 02/21/2006 11/20/2017 Atrial fibrillation 12/31/19 18 Overview (10/08/2016): Hx of paroxsymal, not on coumadin. Currently SR. -- monitor closely --follow and replete lytes Depression 08/31/2020 Overview (04/07/2013): on celexa Atrial fibrillation 06/30/20 19 Overview (06/19/2018): not on coumadin, last ekg normal Immunizations Immunization Administration Dates Next Due influenza (HD-IIV3) vaccine, age 65+ yr, high dose, trivalent, PF (FLUZONE HIGH-DOSE) 06/30/2019,07/15/2018,10/07/2017,08/13,08/23/2015 07/15/2019 influenza (IIV3) vaccine, ag e 6 mo - 64 yr, trivalent (AFLURIA, FLULAVAL, FLUVIRIN, FLUZONE) 07/08/2014 influenza vaccine, unspecifi ed formulation 06/26/2011 novel influenza (D1E9-18) vaccine, PF 09/28/2009 pneumococcal conjugate (PCV1 3) vaccine, 13 valent (PREVNAR 13) 08/23/2015 pneumococcal polysaccharide (PPV23) vaccine, 23 valent (PNEUMOVAX 23) 09/01/2014 tetanus diphtheria pertussis (Tdap) vaccine, age 7+ yr (ADACEL, BOOSTRIX) 05/13/2011 zoster (ZVL) vaccine, live (ZOSTAVAX) 05/13/2011 Family History Medical History Relation Comments NE [Other] Brother 2 at 69 lipidemia [Other] Daughter Heart Father NE, at 50 esoph cancer [Other] Mother at 93 Cerebral Embolism Paternal Grandfather suicide [Other] Sister 2 Heart Son 2 NE in his 40's Relation Status Comments Brother 1 Brother 2 Daughter Father (Age 49) NE Mother Paternal Grandfather Sister 1 Sister 2 Son 1 (Age 44) NE Son 2 Social History Tobacco Use Types Packs/Day Years [...] often do you attend chur ch or samaritan services? Never 09/04/2020 Do you belong to any clubs o r organizations such as mandaeism groups, unions, fraternal or athletic groups, or [...] Answer Date Recorded PHQ-2 score 0 09/04/2020 [facility] [place] of Occupat ional Health - Occupational Stress [...] N ot on file 2020 Data from: https://www.[email or web address].medicine.[email or web address]/. Last address used for calculation Not on file 2020 Comments No Sex and Gender Information Value Date Recorded Sex Assigned at Female 06/19/2022 8:40 PM EDT Legal Sex Female 8:57 AM EST Gender Identity Female 06/19/2022 8:40 PM EDT Sexual Orientation Straight 06/19/2022 8: 40 PM EDT Last Filed Vital Signs Vital Sign Reading Time Taken Comments Blood Pressure 146/72 06/30/2019 10:50 AM EDT Pulse 66 04/01/2019 10:28 AM EDT Temperature 36.7 C (98.1 F) 03/16/2018 7:09 AM EDT Respiratory Rate 20 11/19/2018 2:44 PM EST Oxygen Saturation 96% 11/19/2018 2:44 PM EST Inhaled Oxygen Concentration - - Weight 83.5 kg (184 lb) 06/30/2019 10:50 AM EDT Height 160 cm (5' 3 ) 04/01/2019 10:28 AM EDT Body Mass Index 32.59 04/01/2019 10:28 AM EDT Plan of Treatment Health Maintenance Due Date Last Done Comments Anxiety Screening 1953 Depression Screening 1953 RSV Vaccine (1 - 1-dose 75+ series) 2010 Shingrix Vaccine (2 of 3) 07/08/2011 05/13/2011 DTaP,Tdap,Td Vaccine (2 - Td or Tdap) 05/13/2021 05/13/2011 Diabetes Screening 10/29/2023 10/29/2020, 1 12/06/2019, 10/05/2020, Additional history exists Advance Directive Discussion 10/13/2024 Influenza Vaccine (#1) 2025 9, 07/15/2018, 10/07/2017, Additional history exists Pneumococcal Vaccine: 50+ Completed 08/23/2015, Bone Density Screening Completed 8, 08/23/2016, 05/23/2011, Additional history exists Medical Devices Implanted Type Area Medicine Tech Device Identifier Shelf Expiration Date Model / Serial / Lot 0---Cement Simplex P Speedset - [id number] Implanted:Qt y: 2 on 04/29/2013 at [facility] Cement / Putty Right: Bone - Knee SIGRID 08/12/2014 [id number] / / [id number] ibial Bearing Insert-Cs Implanted:Qt y: 1 on 04/29/2013 at [facility] Implant Right: Bone - Knee SIGRID 08/07/2017 [id number] / / [id number] Small Socket Insert Implanted:Qt y: 1 on 03/13/2018 at [facility] Implant Left: Bone - Shoulder [employer] 01/15/2023 [id number] / / [id number] Humeral Stem Implanted:Qt y: 1 on 03/13/2018 at [facility] Implant Left: Bone - Shoulder [employer] 533-10-108 / / [id number]---Comp Fem 3 Rt Kn Cr Gallo Trthln - [id number] Implanted:Qt y: 1 on 04/29/2013 at [facility] Joint - Knee Right: Bone - Knee [employer] 12/01/2017 [id number] / / [id number]---Comp Pat 10mm 32mm Asym Trthln - [id number] Implanted:Qt y: 1 on 04/29/2013 at [facility] Joint - Patella Right: Bone - Knee [employer] 12/09/2017 [id number] / / [id number] Head Rsp 32mm -4mm Offset Glenoid Retain Screw - [id number] Implanted:Qt y: 1 on 03/13/2018 at [facility] Joint - Shoulder Left: Bone - Shoulder [employer] 03/31/2023 [id number] / / [id number]---Baseplt Tib Trthln 4 Prim - [id number] Implanted:Qt y: 1 on 04/29/2013 at [facility] Plate Right: Bone - Knee [employer] 01/19/2018 [id number] / / [id number] Baseplate Rsp P2 30mm Glenoid Sterile - [id number] Implanted:Qt y: 1 on 03/13/2018 at [facility] Plate Left: Bone - Shoulder [employer] 01/21/2024 [id number] / / [id number] Screw Rsp 5mm 14mm Bone Lock Glenoid Baseplate Shoulder - [id number] Implanted:Qt y: 1 on 03/13/2018 at [facility] Screw Left: Bone - Shoulder [employer] 12/16/2023 [id number] / / [id number] Screw Rsp 5mm 26mm Bone Lock Glenoid Baseplate Shoulder - [id number] Implanted:Qt y: 1 on 03/13/2018 at [facility] Screw Left: Bone - Shoulder [employer] 01/06/2024 [id number] / / [id number] Screw Rsp 5mm 26mm Bone Lock Glenoid Baseplate Shoulder - [id number] Implanted:Qt y: 1 on 03/13/2018 at [facility] Screw Left: Bone - Shoulder [employer] 01/06/2024 [id number] / / [id number] Screw Rsp 5mm 14mm Bone Lock Glenoid Baseplate Shoulder - [id number] Implanted:Qt y: 1 on 03/13/2018 at [facility] Screw Left: Bone - Shoulder [employer] 12/16/2023 506-03-114 / / [id number] Procedures Procedure Name Priority Date/Time Associated Diagnosis Comments HEMOGLOBIN A1C Routine 09/01/2020 3:27 PM EST Medication management DXA-AXIAL SKELETON Routine 06/19/2018 1: 41 PM EDT Osteoporosis with current pathological fracture, unspecified osteoporosis type, initial encounter Menopause from Last 3 Months or Most Recently Relevant to Health Maintenance Results * (ABNORMAL) HGB A1C (09/01/2020 3:27 PM EST) Hemoglobin A1C 7.1(H) 4.3 - 5.6 % 09/02/2020 3:16 PM EST [facility] Comment: [place] Diabetes Association guidelines indicate that patients with HgbA1c in the range 5.7-6.4% are at increased risk for development of diabetes, and intervention by lifestyle modification may be beneficial. HgbA1c greater or equal to 6.5% is considered diagnostic of diabetes. Estimated Average Glucose 157 mg/dL 09/02/2020 3:16 PM EST [facility] Comment: eAG: (Estimated average glucose) is a calculated value from HgbA1c and is sales donor recruitment representative of the average blood glucose level in the last 2-3 month period. Blood WHOLE BLOOD SPECIMEN / Unknown 09/01/2020 3:27 PM EST 09/01/2020 11:35 PM EST Mervat Banuelos MD LABORATORY Final Result [facility] [address] [place] [address] [facility] [address] [place] [address] * DXA-AXIAL SKELETON (06/19/2018 1:41 PM EDT) LOWEST T-SCORE -1.9 DIVIS ION OF RADIOLOGY Anatomical Region Laterality Modality Other 06/19/2018 1:25 PM EDT Impressions 06/19/2018 2:26 PM EDT IMPRESSION: THE LOWEST T-SCORE IS -1.9 DIAGNOSIS: The bone density in this patient is in the diagnostic range of CLINICAL OSTEOPOROSIS according to World Health Organization criteria. NO CHANGE IN BMD HOWEVER 10 YEAR FRAX FOR MAJOR OSTEOPOROTIC FRACTURE IS 35% FOR HIP FRACTURE IS 21% SO PATIENT IS HIGH RISK FRACTURE RISK: Current risk of fracture (given the reported bone density value) IS increased. Follow-up study in 2 YEARS PENDING THERAPY is recommended as clinically indicated (on the same machine). TECHNICAL LIMITATIONS: that can affect bone mass measurement include: degenerative changes in the lumbar spine that can falsely elevate bone density as can aortic calcifications. Risk factors for fracture independent of bone density include: glucocorticoid use, history of previous fracture, family history of hip or spine fracture in a first degree relative, advanced age, and gait or vision abnormalities. Persons with insufficient exercise, cigarette smoking, low body weight (< 127 lbs), alcoholism, rheumatoid arthritis, hyperparathyroidism, and women with estrogen deficiency including early menopause (< age 45) and prolonged premenopausal amenorrhea (>1year) are at increased risk for low bone mass and fracture. RECOMMENDATIONS: All persons receive the recommended daily allowance of calcium and vitamin D as clinically indicated. All women should be encouraged encouraged to participate in regular weight bearing and muscle strengthening exercise to reduce the risk of falls and fractures. Cessations of smoking and moderation of intake of alcohol, caffeine, and carbonated beverages are recommended. Pharmacologic therapy to reduce fracture risk in postmenopausal women with T-score -2.0 or less or -1.5 or less with additional risk factors. Fall prevention is important for fracture reduction. FRAX model does NOT apply to treated or previously treated patients. Hip pad protectors when worn may reduce the risk of hip fracture. www.[employer] Caution: some medical conditions other than osteoporosis may cause low bone density such as osteomalacia and renal osteodystrophy. Clinical correlation is necessary. Evaluation for secondary causes of bone loss is recommended in postmenopausal women with an age matched Z-score of less than -1.5 (see web site for more details) In pre-menopausal women the WHO criteria should not be applied and only Z-scores should be used. Osteoporosis should not be diagnosed by BMD alone in pre-menopausal women; however, osteoporosis may be diagnosed if BMD is low in the presence of secondary causes of bone loss or additional risk factors. Adult patients being treated with corticosteroids should be protected from bone loss and fracture risk (see ACR guidelines). Pharmacologic therapy may be necessary in high risk patients for the prevention and treatment of steroid induced bone loss. Additional information on the [place] [employer]umat[employer] 2017 Recommendations for the Prevention and Treatment of Glucocorticoid-Induced Osteoporosis are available through the journal Arthritis & Rheumatology Vol. 69, No.8, May 2017, pp 1525. These changes may be revised, please refer to www.rheumatology.org? for updated recommendations. ISCD RECOMMENDATIONS: Postmenopausal women may be diagnosed with osteoporosis if the T-score is less than or equal to -2.5. In postmenopausal women with a prior fragility fracture, osteoporosis may be diagnosed even if the T-score is greater than -2.5. For additional information: www.nof.org www.iscd.org www.[facility].org/[facility]health [email or web address].org/arthritis/osteo Water Taxi Driver: MANSOOR Transcribe Date/Time: Jun 19 2018 2:20P Dictated by : ANN CROWE MD This examination was interpreted and the report reviewed and electronically signed by: ANN CROWE MD on Jun 19 2018 2:23PM EST Narrative 06/19/2018 2:26 PM EDT * * *Final Report* * * DATE OF EXAM: Jun 19 2018 1:25PM [facility] 0804 - DXA - AXIAL SKELETON -NB / PROCEDURE REASON: multiple diagnoses * * * * Physician Interpretation * * * * BONE DENSITY REPORT Serial DXA BONE DENSITY on the A10 [employer] Horizon W (S/N: [id number]) in the [address] HISTORY: This woman has self reported the following demographics and risk factors for low bone density and fracture: AGE 82 MENOPAUSE AGE 45 NO LONGER ON HT HX OF HUMERUS FRACTURE LACTOSE INTOLERANCE Current bone therapies reported: VITAMIN D RESULTS: Lumbar Spine: Bone density from L1-L4 is 0.975 g/cm2. T-score -0.7 Comparison was made to the prior study from 08/2016. The prior value in the LUMBAR SPINE region measured 0.963 g/cm2. There HAS NOT been a statistically significant CHANGE. Proximal femur: Bone density in the LEFT NECK region is 0.633 g/cm2. T-score -1.9 Comparison was made to the prior study from 08/2016. The prior value in the LEFT NECK region measured 0.638 g/cm2. There HAS NOT been a statistically significant CHANGE. (Least significant change for spine or total hip site is greater than or equal to 0.04 g/cm2) Procedure Note Provider, [facility] [place] - 06/19/2018 * * *Final Report* * * DATE OF EXAM: Jun 19 2018 1:25PM [facility] 0804 - BD DXA - AXIAL SKELETON -NB / PROCEDURE REASON: multiple diagnoses * * * * Physician Interpretation * * * * BONE DENSITY REPORT Serial DXA BONE DENSITY on the A10 Hologic Horizon W (S/N: [id number]) in the [address] HISTORY: This woman has self reported the following demographics and risk factors for low bone density and fracture: AGE 82 MENOPAUSE AGE 45 NO LONGER ON HT HX OF HUMERUS FRACTURE LACTOSE INTOLERANCE Current bone therapies reported: VITAMIN D RESULTS: Lumbar Spine: Bone density from L1-L4 is 0.975 g/cm2. T-score -0.7 Comparison was made to the prior study from 08/2016. The prior value in the LUMBAR SPINE region measured 0.963 g/cm2. There HAS NOT been a statistically significant CHANGE. Proximal femur: Bone density in the LEFT NECK region is 0.633 g/cm2. T-score -1.9 Comparison was made to the prior study from 08/2016. The prior value in the LEFT NECK region measured 0.638 g/cm2. There HAS NOT been a statistically significant CHANGE. (Least significant change for spine or total hip site is greater than or equal to 0.04 g/cm2) IMPRESSION IMPRESSION: THE LOWEST T-SCORE IS -1.9 DIAGNOSIS: The bone density in this patient is in the diagnostic range of CLINICAL OSTEOPOROSIS according to World Health Organization criteria. NO CHANGE IN BMD HOWEVER 10 YEAR FRAX FOR MAJOR OSTEOPOROTIC FRACTURE IS 35% FOR HIP FRACTURE IS 21% SO PATIENT IS HIGH RISK FRACTURE RISK: Current risk of fracture (given the reported bone density value) IS increased. Follow-up study in 2 YEARS PENDING THERAPY is recommended as clinically indicated (on the same machine). TECHNICAL LIMITATIONS: that can affect bone mass measurement include: degenerative changes in the lumbar spine that can falsely elevate bone density as can aortic calcifications. Risk factors for fracture independent of bone density include: glucocorticoid use, history of previous fracture, family history of hip or spine fracture in a first degree relative, advanced age, and gait or vision abnormalities. Persons with insufficient exercise, cigarette smoking, low body weight (< 127 lbs), alcoholism, rheumatoid arthritis, hyperparathyroidism, and women with estrogen deficiency including early menopause (< age 45) and prolonged premenopausal amenorrhea (>1year) are at increased risk for low bone mass and fracture. RECOMMENDATIONS: All persons receive the recommended daily allowance of calcium and vitamin D as clinically indicated. All women should be encouraged encouraged to participate in regular weight bearing and muscle strengthening exercise to reduce the risk of falls and fractures. Cessations of smoking and moderation of intake of alcohol, caffeine, and carbonated beverages are recommended. Pharmacologic therapy to reduce fracture risk in postmenopausal women with T-score -2.0 or less or -1.5 or less with additional risk factors. Fall prevention is important for fracture reduction. FRAX model does NOT apply to treated or previously treated patients. Hip pad protectors when worn may reduce the risk of hip fracture. www.[employer] Caution: some medical conditions other than osteoporosis may cause low bone density such as osteomalacia and renal osteodystrophy. Clinical correlation is necessary. Evaluation for secondary causes of bone loss is recommended in postmenopausal women with an age matched Z-score of less than -1.5 (see web site for more details) In pre-menopausal women the WHO criteria should not be applied and only Z-scores should be used. Osteoporosis should not be diagnosed by BMD alone in pre-menopausal women; however, osteoporosis may be diagnosed if BMD is low in the presence of secondary causes of bone loss or additional risk factors. Adult patients being treated with corticosteroids should be protected from bone loss and fracture risk (see ACR guidelines). Pharmacologic therapy may be necessary in high risk patients for the prevention and treatment of steroid induced bone loss. Additional information on the [place] [employer]umat[employer] 2017 Recommendations for the Prevention and Treatment of Glucocorticoid-Induced Osteoporosis are available through the journal Arthritis & Rheumatology Vol. 69, No.8, May 2017, pp 1521. These changes may be revised, please refer to www.rheumatology.org? for updated recommendations. ISCD RECOMMENDATIONS: Postmenopausal women may be diagnosed with osteoporosis if the T-score is less than or equal to -2.5. In postmenopausal women with a prior fragility fracture, osteoporosis may be diagnosed even if the T-score is greater than -2.5. For additional information: www.nof.org www.iscd.org www.[facility].org/[facility]omenshealth www.[facility].org/arthritis/osteo Water Taxi Driver: MANSOOR Transcribe Date/Time: Jun 19 2018 2:20P Dictated by : ANN CROWE MD This examination was interpreted and the report reviewed and electronically signed by: ANN CROWE MD on Jun 19 2018 2:23PM EST Mervat CRUZ-PAMInés Final Result from Last 3 Months or Most Recently Relevant to Health Maintenance Insurance MEDICARE [place] [address] Advance Directives Documents on File Type Date Recorded Patient Pharmacy Services Representative Expl anation Advance Directive(s) 05/03/2013 4:44 PM
--- OUTSIDE RECORDS SUMMARY | 2025-05-30 12:26 | XMS_ITS | Encounter Summary ---
Author Organization [facility] Address [address] [place] [address] Care Team Providers Care Product Development Actuary Name Role Phone Mervat Banuelos MD Primary Care Provider [phone] Source Comments In the event this information is protected by the Federal Confidentiality of Alcohol and Drug AbusePatient Records regulations: The Federal rules restrict any use of the information to criminally investigate or prosecute any alcohol or drug abuse patient.[facility] Encounter Details Date Type Department Care Team (Late st Contact Info) Description 12/03/2017 Patient Msg [facility]rological [facility] [address] [address] Stevo Hunt NO FORWARDING ADDRESS RE: Appointment Cancellation Request Social History Tobacco [...] on filedocumented in this encounter Care Teams Product Development Actuary Relationship Specialty Start Date End Date Mervat Banuelos MD [address] [facility] [place] [address] PCP - General Internal Medicine 05/13/11 04/02/23 documented as of this encounter
--- OUTSIDE RECORDS SUMMARY | 2025-05-30 12:26 | XMS_ITS | Encounter Summary ---
Author Organization [facility] Address [address] [place] [address] Care Team Providers Care Screenplay Writer Name Role Phone Mervat Banuelos MD Primary Care Provider [phone] Source Comments In the event this information is protected by the Federal Confidentiality of Alcohol and Drug AbusePatient Records regulations: The Federal rules restrict any use of the information to criminally investigate or prosecute any alcohol or drug abuse patient.[facility] Encounter Details Date Type Department Care Team (Late st Contact Info) Description 05/14/2011 Abstract Thoracic Clinic [address] [place] [address] Atif Silva (Historical) [facility] [address] [place] [address] Social History Tobacco Use Types Packs/Day Years [...] on filedocumented in this encounter Care Teams Screenplay Writer Relationship Specialty Start Date End Date Mervat Banuelos MD [address] [place] [address] PCP - General Internal Medicine 05/13/11 04/02/23 documented as of this encounter
--- OUTSIDE RECORDS SUMMARY | 2025-05-30 12:26 | XMS_ITS | Encounter Summary ---
Author Organization [facility] Address [address] [place] [address] Care Team Providers Care Manager Hardware Name Role Phone Mervat Banuelos MD Primary Care Provider [phone] Source Comments In the event this information is protected by the Federal Confidentiality of Alcohol and Drug AbusePatient Records regulations: The Federal rules restrict any use of the information to criminally investigate or prosecute any alcohol or drug abuse patient.[facility] Encounter Details Date Type Department Care Team (Late st Contact Info) Description 05/24/2011 Patient Msg Medical Records [address] [place] [address] Provider, Ccf RE:BMD Social History Tobacco Use Types Packs/Day Years [...] on filedocumented in this encounter Care Teams Manager Hardware Relationship Specialty Start Date End Date Mervat Banuelos MD [address] [place] [address] PCP - General Internal Medicine 05/13/11 04/02/23 documented as of this encounter
--- OUTSIDE RECORDS SUMMARY | 2025-05-30 12:26 | XMS_ITS | Clinical Summary ---
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
--- OUTSIDE RECORDS SUMMARY | 2025-05-30 12:26 | XMS_ITS | Encounter Summary ---
Author Organization [facility] Address [address] [place] [address] Care Team Providers Care Hat Brim And Crown Laminating Operator Name Role Phone Mervat Banuelos MD Primary Care Provider [phone] Source Comments In the event this information is protected by the Federal Confidentiality of Alcohol and Drug AbusePatient Records regulations: The Federal rules restrict any use of the information to criminally investigate or prosecute any alcohol or drug abuse patient.[facility] Encounter Details Date Type Department Care Team (Late st Contact Info) Description 10/31/2016 Patient Msg Medical Records [address] [place] [address] Provider, Ccf Your [facility] Medical Procedure Social [...] on filedocumented in this encounter Care Teams Hat Brim And Crown Laminating Operator Relationship Specialty Start Date End Date Mervat Banuelos MD [address] [place] [address] PCP - General Internal Medicine 05/13/11 04/02/23 documented as of this encounter
--- OUTSIDE RECORDS SUMMARY | 2025-05-30 12:26 | XMS_ITS | Encounter Summary ---
Author Organization [facility] Address [address] [place] [address] Care Team Providers Care Photographer Finish Name Role Phone Mervat Banuelos MD Primary Care Provider [phone] Source Comments In the event this information is protected by the Federal Confidentiality of Alcohol and Drug AbusePatient Records regulations: The Federal rules restrict any use of the information to criminally investigate or prosecute any alcohol or drug abuse patient.[facility] Encounter Details Date Type Department Care Team (Late st Contact Info) Description 12/24/2018 Patient Msg Internal Medicine [facility] [place] [place] [address] Mervat Banuelos MD [address] [place] [address] labs Social History Tobacco Use Types Packs/Day Years Used Date Smoking Tobacco: Never Smokeless Tobacco: Never Alcohol Use Standard Drinks/Week Comments Yes 0 (1 standard drink = 0.6 oz pur e alcohol) rare now; in past social Comments No Sex and Gender Information Value [...] on filedocumented in this encounter Care Teams Photographer Finish Relationship Specialty Start Date End Date Mervat Banuelos MD [address] [place] [address] PCP - General Internal Medicine 05/13/11 04/02/23 documented as of this encounter
--- OUTSIDE RECORDS SUMMARY | 2025-05-30 12:26 | XMS_ITS | Encounter Summary ---
Author Organization [facility] Address [address] [place] [address] Care Team Providers Care Licensed Embalmer Supervisor Name Role Phone Mervat Banuelos MD Primary Care Provider [phone] Source Comments In the event this information is protected by the Federal Confidentiality of Alcohol and Drug AbusePatient Records regulations: The Federal rules restrict any use of the information to criminally investigate or prosecute any alcohol or drug abuse patient.[facility] Encounter Details Date Type Department Care Team (Late st Contact Info) Description 07/24/2016 Patient Msg Medical Records [address] [place] [address] Provider, Ccf refills available Social History Tobacco Use Types Packs/Day Years [...] on filedocumented in this encounter Care Teams Licensed Embalmer Supervisor Relationship Specialty Start Date End Date Mervat Banuelos MD [address] [facility] [place] [address] PCP - General Internal Medicine 05/13/11 04/02/23 documented as of this encounter
--- OUTSIDE RECORDS SUMMARY | 2025-05-30 12:26 | XMS_ITS | Encounter Summary ---
Author Organization [facility] Address [address] [place] [address] Care Team Providers Care Shell Maker Lockstitch Name Role Phone Mervat Banuelos MD Primary Care Provider [phone] Source Comments In the event this information is protected by the Federal Confidentiality of Alcohol and Drug AbusePatient Records regulations: The Federal rules restrict any use of the information to criminally investigate or prosecute any alcohol or drug abuse patient.[facility] Encounter Details Date Type Department Care Team (Late st Contact Info) Description 08/01/2014 Patient Msg Medical Records [address] [place] [address] Provider, Ccf RE: Request an Appointment Social [...] on filedocumented in this encounter Care Teams Shell Maker Lockstitch Relationship Specialty Start Date End Date Mervat Banuelos MD [address] [place] [address] PCP - General Internal Medicine 05/13/11 04/02/23 documented as of this encounter
--- OUTSIDE RECORDS SUMMARY | 2025-05-30 12:26 | XMS_ITS | Encounter Summary ---
Author Organization [facility] Address [address] [place] [address] Care Team Providers Care Apprentice Pattern Maker Name Role Phone Mervat Banuelos MD Primary Care Provider [phone] Source Comments In the event this information is protected by the Federal Confidentiality of Alcohol and Drug AbusePatient Records regulations: The Federal rules restrict any use of the information to criminally investigate or prosecute any alcohol or drug abuse patient.[facility] Encounter Details Date Type Department Care Team (Late st Contact Info) Description 11/16/2015 Get Medical Advice Internal Medicine [facility] [address] [place] [address] Mervat Banuelos MD [address] [place] [address] Upcoming Appointment Question Social History Tobacco [...] encounter Miscellaneous Notes * Telephone Encounter - Angelina Nam - 11/16/2015 3:34 PM EST AND CORRECT NAME VERIFIED BY PATIENT. A follow up appointment is scheduled. * Telephone Encounter - Mervat Banuelos - 11/16/2015 2:11 PM EST Needs ED f/u appt for possible GI bleeding. Should not wait for appt for me, just bring her in for whoever available documented in this encounter Plan of Treatment Not on file documented as of this encounter Visit Diagnoses Not on filedocumented in this encounter Care Teams Apprentice Pattern Maker Relationship Specialty Start Date End Date Mervat Banuelos MD [address] [place] [address] PCP - General Internal Medicine 05/13/11 04/02/23 documented as of this encounter
--- OUTSIDE RECORDS SUMMARY | 2025-05-30 12:27 | XMS_ITS | Encounter Summary ---
Author Organization [facility] Address [address] [place] [address] Care Team Providers Care Pre Billing Clinician Name Role Phone Mervat Banuelos MD Primary Care Provider [phone] Source Comments In the event this information is protected by the Federal Confidentiality of Alcohol and Drug AbusePatient Records regulations: The Federal rules restrict any use of the information to criminally investigate or prosecute any alcohol or drug abuse patient.[facility] Encounter Details Date Type Department Care Team (Late st Contact Info) Description 02/09/2015 Get Medical Advice Internal Medicine [facility] [address] [place] [address] Mervat Banuelos MD [address] [place] [address] RE: Medication Question (Not Renewal) Social [...] on filedocumented in this encounter Care Teams Pre Billing Clinician Relationship Specialty Start Date End Date Mervat Banuelos MD [address] [place] [address] PCP - General Internal Medicine 05/13/11 04/02/23 documented as of this encounter
--- OUTSIDE RECORDS SUMMARY | 2025-05-30 12:27 | XMS_ITS | Encounter Summary ---
Author Organization [facility] Address [address] [place] [address] Care Team Providers Care Coarse Wire Drawer Name Role Phone Mervat Banuelos MD Primary Care Provider [phone] Source Comments In the event this information is protected by the Federal Confidentiality of Alcohol and Drug AbusePatient Records regulations: The Federal rules restrict any use of the information to criminally investigate or prosecute any alcohol or drug abuse patient.[facility] Encounter Details Date Type Department Care Team (Late st Contact Info) Description 08/01/2015 Patient Msg Medical Records [address] [place] [address] Provider, Ccf Pre Order Social History Tobacco Use Types Packs/Day Years [...] on filedocumented in this encounter Care Teams Coarse Wire Drawer Relationship Specialty Start Date End Date Mervat Banuelos MD [address] [place] [address] PCP - General Internal Medicine 05/13/11 04/02/23 documented as of this encounter
--- OUTSIDE RECORDS SUMMARY | 2025-05-30 12:35 | XMS_ITS | CCD ---
Author Organization [facility] CliniSymn Care Team Providers Care Self Defense Instructor Name Role Phone GARY GOODWIN Referring Unavailable Ahmed, Irfan Primary Care Provider AHMED, IRFAN Primary Care Unavailable AHMED, IRFAN Referring Unavailable AHMED, IRFAN Primary Care Unavailable MICHAEL TYLER Referring Unavailable AHMED, IRFAN Primary Care Unavailable KAYLA MARC Referring Unavailable HOAileen, DR BERNARD Attending Unavailable HOY, DR BERNARD Admitting Unavailable KENNEDY, DR CATHERINE Toscano Consulting Unavailable MISC, DR CHAPIN Primary Care Unavailable HOY, DR BERNARD Consulting Unavailable ROSS, RASHAD Consulting Unavailable BARRIE, JENN Consulting Unavailable OLEXA, FREDO Admitting Unavailable FURYENNY, DR ANTONIO Tineo Primary Care Unavailable OLEXA, FREDO Attending Unavailable ZIEBLIANNE, DR RJ Toscano Consulting Unavailable OLEBRYNN, FREDO Consulting Unavailable FURYENNY, DR ANTONIO Tineo Primary Care Unavailable KENNEDY, DR CATHERINE Toscano Consulting Unavailable KENNEDY, DR CATHERINE Toscano Attending Unavailable KENNEDY, DR CATHERINE Toscano Admitting Unavailable HAY, DR DOTSON Attending Unavailable JEANNETTE, DR DOTSON Admitting Unavailable JEANNETTE, DR DOTSON Consulting Unavailable AUNDREA, DR ANTONIO Tineo Primary Care Unavailable DERCARLITO, CHERIE Consulting Unavailable YeVannessa oates Consulting Unavailable Unavailable Primary Care Provider Unavailabl e Antonio Rangel DO Primary Care Provider [phone] Antonio Rangel DO Attending Provider Antonio Rangel Attending Unavailable Antonio Rangel Admitting Unavailable Antonio Rangel DO Primary Care Provider [phone] Allergies Allergy Classification Reported Allergen(s) Allergy Type Date of Onset Reaction(s) Facility Corticosteroids (1 source) Desonide Drug Allergy 1 [facility] Repository Penicillins (antibiotic) (1 source) Penicillins Drug Allergy 5 [facility] Rep[facility] (2 sources) Adhesive Tape; Translations: [ADHESIVE TAPE (ROSINS)] Propensity to adverse reactions (disorder) 3 Itching [facility] Other [place] Repository (11 sources) Lactose; Translations: [LACTOSE] Drug Allergy 8 Diarrhea [facility] Repository (3 sources) Penicillins; Translations: [PENICILLINS] Propensity to adverse reactions to drug (disorder) 4 Hives [facility] Repository (1 source) OTHER; Translations: [OTHER] Propensity to adverse reactions (disorder) 0 [facility] Repository (1 source) sensitive to STATINS [Other] Propensity to adverse reactions 0 Other: See Comments [facility] (9 sources) Adhesive agent Propensity to adverse reactions to drug 3 Itching [facility] (9 sources) Penicillin Drug Allergy 7 [facility] Medications Current Medications Medication Drug Class(es) Dates Sig (Normalized) Sig (Original) acetaminophen 325 mg / HYDROcodone bitartrate 5 mg oral tablet (1 source) Opioid Agonist Start: 02-23-2018 take 1 tablet by mouth every four hours Hydrocodone-Acetami nophen ([place]) 5-325 mg tablet Active 1 TAB PO Q4H February 23, 2018 aspirin 81 mg chewable tablet (9 sources) Platelet Aggregation Inhibitor, Nonsteroidal Anti-inflammatory Drug Start: 08-30-2023 aspirin 81 mg chewable tablet Chew 1 tablet (81 mg total) and swallow in the morning. 08/30/2023 Active dapagliflozin 10 mg oral tablet (9 sources) Sodium-Glucose Cotransporter 2 Inhibitor Start: 08-30-2023 take 1 tablet by mouth in the morning dapagliflozin propanediol (FARXIGA) 10 mg tablet Take 1 tablet (10 mg total) by mouth in the morning. 08/30/2023 Active ibuprofen 800 mg oral tablet (1 source) Nonsteroidal Anti-inflammatory Drug Start: 02-23-2018 take 1 tablet by mouth three times daily as needed for pain Ibuprofen 800 mg tablet Active 800 MG PO Three times daily as needed for pain February 22, 2018 11:00pm lisinopril 5 mg oral tablet (9 sources) Angiotensin Converting Enzyme Inhibitor Start: 08-30-2023 take 1 tablet by mouth in the morning lisinopriL (PRINIVIL,ZESTRIL) 5 mg tablet Take 1 tablet (5 mg total) by mouth in the morning. 08/30/2023 Active LORazepam 0.5 mg oral tablet (9 sources) Benzodiazepine take 1 tablet by mouth every eight hours as needed for anxiety LORazepam (ATIVAN) 0.5 mg tablet Take 1 tablet (0.5 mg total) by mouth every 8 (eight) hours as needed for anxiety. Active omeprazole 40 mg delayed release oral capsule (10 sources) Proton Pump Inhibitor Start: 10-18-2016 take 1 capsule by mouth in the morning omeprazole (PriLOSEC) 40 mg capsule Take 1 capsule (40 mg total) by mouth in the morning. PT DOES NOT HAVE MEDICATION YET. 10/18/2016 Active Comment on above: TAKE 1 CAPSULE BY [facility] ONCE DAILY spironolactone 25 mg oral tablet (9 sources) Aldosterone Antagonist Start: 08-30-2023 take 0.5 tablet by mouth in the morning spironolactone (ALDACTONE) 25 mg tablet Take 0.5 tablets (12.5 mg total) by mouth in the morning. 08/30/2023 Active Completed/Discontinued Medications Medication Drug Class(es) Dates Sig (Normalized) Sig (Original) amLODIPine 2.5 mg oral tablet (1 source) Dihydropyridine Calcium Channel Sammy Start: 09-14-2020 take 2 tablets by mouth once daily amLODIPine (NORVASC) 2.5 mg tablet Take 2 tablets by mouth once daily. 90 tablet 4 09/14/2020 Active Comment on above: Take 2 tablets by [facility] once daily. atorvastatin 10 mg oral tablet (10 sources) HMG-CoA Reductase Inhibitor Start: 01-17-2020 take 1 tablet by mouth once daily atorvastatin (LIPITOR) 10 mg tablet TAKE 1 TABLET BY MOUTH ONCE DAILY 90 tablet 3 01/17/2020 Active Comment on above: TAKE 1 TABLET BY [facility] ONCE DAILY BIPAP (1 source) Start: 10-07-2017 BIPAP 13/6 cm H2O with back up of 13 BPM With humidification 1 Device 0 10/07/2017 Active Comment on above: 13/6 cm H2O with angélica k up of 13 BPM With humidification Blood-Glucose Meter (ACCU-CHEK FRANCESCA PLUS METER) misc (1 source) Start: 06-30-2019 Blood-Glucose Meter (ACCU-CHEK FRANCESCA PLUS METER) misc 1 Device once daily. 1 Each 0 06/30/2019 Active Comment on above: 1 Device once daily. busPIRone hydrochloride 7.5 mg oral tablet (10 sources) Start: 10-05-2020 take 1 tablet by mouth twice daily busPIRone (BUSPAR) 7.5 mg tablet Take 1 tablet by mouth twice daily. 90 tablet 3 10/05/2020 Active Comment on above: Take 1 tablet by [facility] twice daily. cholecalciferol 0.025 mg oral capsule (1 source) Vitamin D Start: 06-19-2018 take 1 capsule by mouth once daily Cholecalciferol, Vitamin D3, 1,000 unit cap Take 1 capsule by mouth once daily. 0 06/19/2018 Active Comment on above: Take 1 capsule by mo [facility] once daily. indapamide 2.5 mg oral tablet (10 sources) Thiazide-like Diuretic Start: 09-04-2020 take 1 tablet by mouth once daily indapamide (LOZOL) 2.5 mg tablet Take 1 tablet by mouth once daily. 90 tablet 4 09/04/2020 Active Comment on above: Take 1 tablet by [facility] once daily. levothyroxine sodium 0.125 mg oral tablet (11 sources) l-Thyroxine Start: 01-17-2020 take 1 tablet by mouth once daily before breakfast levothyroxine (SYNTHROID) 125 mcg tablet TAKE 1 TABLET BY MOUTH DAILY BEFORE BREAKFAST 90 tablet 3 01/17/2020 Active Start: 02-23-2018 take 1 tablet by [facility] once daily Levothyroxine 112 mcg tablet Active 112 MCG PO Daily February 22, 2018 11:00pm Comment on above: TAKE 1 TABLET BY [facility] DAILY BEFORE BREAKFAST metFORMIN hydrochloride 1000 mg oral tablet (2 sources) Biguanide Start: 03-26-2019 take 1 tablet by mouth twice daily metFORMIN (GLUCOPHAGE) 1,000 mg tablet Take 1 tablet by mouth twice daily. 180 tablet 3 03/26/2019 Active Start: 02-23-2018 take 1 tablet by [facility] twice daily Metformin 500 mg tablet Active 500 MG PO Twice daily February 22, 2018 11:00pm Comment on above: Take 1 tablet by [facility] twice daily. potassium chloride 10 meq extended release oral tablet (10 sources) Start: 10-05-2020 take 1 tablet by mouth once daily potassium chloride (K-TAB) 10 mEq tablet Take 1 tablet by mouth once daily. 90 tablet 3 10/05/2020 Active take 1 dose by mouth in the morn ing potassium chloride (KLOR-CON) 20 mEq packet Take 1 packet (20 mEq total) by mouth in the morning. Active Comment on above: Take 1 tablet by [facility] once daily. sertraline 100 mg oral tablet (10 sources) Serotonin Reuptake Inhibitor Start: 0 take 1 tablet by mouth once daily sertraline (ZOLOFT) 100 mg tablet Indications: Recurrent major depression in partial remission (HCC) Take 1 tablet by mouth once daily. 90 tablet 3 09/04/2020 Active Comment on above: Take 1 tablet by [facility] once daily. SITagliptin 100 mg oral tablet (1 source) Dipeptidyl Peptidase 4 Inhibitor Start: 0 take 1 tablet by mouth once daily SITagliptin (JANUVIA) 100 mg tablet Take 1 tablet by mouth once daily. 90 tablet 3 09/14/2020 Active Comment on above: Take 1 tablet by [facility] once daily. Problems Active Problems Problem Classification Problem Date Documented Date Episodic/Chronic Acute myocardial infarction (9 sources) Myocardial infarction; Translations: [Non-ST elevation (NSTEMI) myocardial infarction] Onset: 08-26-2023 08-26-2023 Chronic Anxiety disorders (10 sources) Anxiety disorder, unspecified; Translations: [Acute stress disorder] Onset: 04-23-2021 01-17-2023 Chronic Complications of surgical procedures or medical care (10 sources) Menopausal symptom; Translations: [Symptomatic postprocedural ovarian failure] Onset: 10-11-2022 10-08-2021 Chronic Delirium dementia and amnestic and other cognitive disorders (17 sources) Vascular dementia without behavioral disturbance; Translations: [Unspecified dementia without behavioral disturbance] Onset: 12-11-2018 08-31-2020 Chronic Diabetes mellitus with complications (20 sources) Type 2 diabetes mellitus with diabetic chronic kidney disease; Translations: [Type 2 diabetes mellitus] Onset: 12-04-2020 Resolved: 10-31-2023 10-07-2024 Chronic Disorders of lipid metabolism (20 sources) Hyperlipidemia, unspecified; Translations: [Hyperlipidemia] Onset: 08-31-2012 Resolved: 07-09-2023 03-05-2018 Chronic E Codes: Fall (1 source) Unspecified fall, initial encounter; Translations: [UNSPECIFIED FALL INITIAL ENCOUNTER] Onset: 04-23-2021 Episodic Esophageal disorders (10 sources) Gastro-esophageal reflux disease without esophagitis; Translations: [Gastroesophageal reflux disease] Onset: 04-23-2021 10-31-2023 Chronic Essential hypertension (12 sources) Essential hypertension; Translations: [Essential (primary) hypertension] Onset: 10-11-2022 03-05-2018 Chronic Hypertension with complications and secondary hypertension (1 source) Hypertensive chronic kidney disease with stage 1 through stage 4 chronic kidney disease, or unspecified chronic kidney disease; Translations: [HTN CKD W/STAGE 1-4 CKD/UNS CKD] Onset: 12-04-2020 Chronic Inflammatory diseases of female pelvic organs (1 source) Acute vaginitis; Translations: [Acute vaginitis] 12-03-2024 Episodic Mood disorders (20 sources) Major depressive disorder, single episode, unspecified; Translations: [Recurrent major depression in partial remission] Onset: 12-01-2018 12-01-2018 Chronic Nutritional deficiencies (10 sources) Vitamin D deficiency; Translations: [Vitamin D deficiency, unspecified] Onset: 03-05-2018 03-05-2018 Chronic Osteoarthritis (11 sources) Osteoarthritis; Translations: [Osteoarthrosis, unspecified whether generalized or localized, lower leg] Onset: 02-21-2012 02-21-2012 Chronic Other aftercare (1 source) assisted (current) use of aspirin; Translations: [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] Onset: 04-23-2021 Episodic Other aftercare (1 source) 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 (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 therapy; Translations: [OTH FOLDED TOWEL 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 CURRENT DRUG THERAPY] Onset: 04-23-2021 Episodic Other congenital anomalies (10 sources) Congenital anomaly of skin; Translations: [Other specified congenital malformations of skin] Onset: 01-01-2007 01-01-2007 Chronic Other connective tissue disease (1 source) Presence of unspecified artificial knee joint; Translations: [PRESENCE UNS ARTIFICIAL KNEE JOINT] Onset: 04-23-2021 Chronic Other connective tissue disease (1 source) Presence of unspecified artificial shoulder joint; Translations: [PRESENCE UNS ARTFICIAL SHOULDR JNT] Onset: 04-23-2021 Chronic Other connective tissue disease (10 sources) History of reverse prosthetic total arthroplasty of left shoulder; Translations: [Presence of left artificial shoulder joint] Onset: 03-27-2018 03-27-2018 Chronic Other connective tissue disease (10 sources) History of left shoulder arthroplasty; Translations: [Presence of left artificial shoulder joint] Onset: 04-23-2018 04-23-2018 Chronic Other connective tissue disease (3 sources) Pain in left lower leg; Translations: [PAIN IN LEFT LOWER LEG] Onset: 04-19-2021 Episodic Other inflammatory condition of skin (10 sources) Rosacea; Translations: [Rosacea, unspecified] Onset: 01-01-2007 01-01-2007 Chronic Other non-traumatic joint disorders (4 sources) Pain in left wrist; Translations: [PAIN IN LEFT WRIST] Onset: 05-08-2021 Episodic Other nutritional; endocrine; and metabolic disorders (10 sources) Intolerance to lactose; Translations: [Lactose intolerance, unspecified] Onset: 10-11-2022 05-23-2011 Chronic Other skin disorders (1 source) Lesion of nose; Translations: [Disorder of the skin and subcutaneous tissue, unspecified] 12-03-2024 Episodic Residual codes; unclassified (1 source) Obstructive sleep apnea (adult) (pediatric); Translations: [OBSTRUCTIVE SLEEP APNEA] Onset: 12-04-2020 Chronic Residual codes; unclassified (10 sources) Obstructive sleep apnea syndrome; Translations: [Obstructive sleep apnea (adult) (pediatric)] Onset: 10-08-2016 03-05-2018 Chronic Residual codes; unclassified (1 source) Acquired absence of both cervix and uterus; Translations: [ACQUIRED ABSENCE BOTH CERVIX AND UTERUS] Onset: 04-23-2021 Episodic Residual codes; unclassified (1 source) Do not resuscitate; Translations: [DO NOT RESUSCITATE] Onset: 04-23-2021 Episodic Schizophrenia and other psychotic disorders (10 sources) Schizoaffective disorder; Translations: [Schizoaffective disorder, unspecified] Onset: 11-03-2022 08-26-2023 Chronic Spondylosis; intervertebral disc disorders; other back problems (11 sources) Lumbar spondylosis; Translations: [Spondylosis without myelopathy or radiculopathy, lumbar region] Onset: 08-19-2023 08-19-2023 Chronic Superficial injury; contusion (1 source) Contusion of left lower leg, initial encounter; Translations: [CONTUSION LEFT LOWER LEG INITIAL] Onset: 04-23-2021 Episodic Systemic lupus erythematosus and connective tissue disorders (10 sources) Dermatomyositis; 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, unspecified, organ involvement unspecified] Onset: 01-01-2018 09-04-2020 Chronic Thyroid disorders (12 sources) Hypothyroidism, unspecified; Translations: [Hypothyroidism] Onset: 12-04-2020 03-05-2018 Chronic Unclassified (1 source) CONTACT W/AND (SUSP) EXPOS COVID-19; Translations: [CONTACT W/AND (SUSP) EXPOS COVID-19] Onset: 12-11-2020 Unclassified (1 source) CHRN KIDNEY DISEASE STG 3 UNSP; Translations: [CHRN KIDNEY DISEASE STG 3 UNSP] Onset: 12-04-2020 Urinary tract infections (3 sources) Urinary tract infection, site not specified; Translations: [Acute cystitis] Onset: 12-11-2020 12-03-2024 Episodic Past or Other Problems Problem Classification Problem Date Documented Da te Episodic/Chronic Acute and unspecified renal failure (1 source) Acute kidney failure, unspecified; Translations: [ACUTE KIDNEY FAILURE UNSPECIFIED] Onset: 12-04-2020 Episodic Bacterial infection; unspecified site (1 source) Unspecified Escherichia coli [E. coli] as the cause of diseases classified elsewhere; Translations: [UNS E COLI CAUSE DX CLASS ELSEWHERE] Onset: 12-04-2020 Episodic Calculus of urinary tract (10 sources) Kidney stone; Translations: [Calculus of kidney] Onset: 10-11-2022 05-23-2011 Episodic Deficiency and other anemia (1 source) Other specified anemias; Translations: [OTHER SPECIFIED ANEMIAS] Onset: 12-04-2020 Episodic Deficiency and other anemia (7 sources) Anemia; Translations: [Anemia, unspecified] Onset: 01-09-2025 01-09-2025 Episodic Fluid and electrolyte disorders (11 sources) Dehydration; Translations: [Hypokalemia] Onset: 12-04-2020 07-09-2023 Episodic Genitourinary symptoms and ill-defined conditions (10 sources) Dysuria; Translations: [Dysuria] Onset: 10-11-2022 10-11-2022 Episodic Malaise and fatigue (4 sources) Weakness; Translations: [WEAKNESS] Onset: 11-17-2020 Episodic Other bone disease and musculoskeletal deformities (10 sources) Osteopenia; Translations: [Other specified disorders of bone density and structure, unspecified site] Onset: 10-11-2022 05-23-2011 Episodic Other connective tissue disease (10 sources) Recurrent falls ; Translations: [Repeated falls] Onset: 03-04-2018 03-05-2018 Episodic Other connective tissue disease (9 sources) Muscle weakness; Translations: [Muscle weakness (generalized)] Onset: 07-09-2023 07-09-2023 Episodic Other disorders of stomach and duodenum (10 sources) Gastric volvulus; Translations: [Other diseases of stomach and duodenum] Onset: 10-06-2016 10-08-2016 Episodic Other gastrointestinal disorders (1 source) Diarrhea, unspecified; Translations: [DIARRHEA UNSPECIFIED] Onset: 12-04-2020 Episodic Other nervous system disorders (10 sources) Impaired cognition; Translations: [Other symptoms and signs involving cognitive functions and awareness] Onset: 03-04-2018 03-05-2018 Episodic Other nervous system disorders (11 sources) Finding related to ability to move; Translations: [Other abnormalities of gait and mobility] Onset: 07-09-2023 07-09-2023 Episodic Other non-epithelial cancer of skin (10 sources) History of malignant neoplasm of skin; Translations: [Personal history of other malignant neoplasm of skin] Onset: 02-21-2006 02-21-2006 Episodic Other non-traumatic joint disorders (9 sources) Hip pain; Translations: [Pain in left hip] Onset: 12-05-2024 12-05-2024 Episodic Other nutritional; endocrine; and metabolic disorders (10 sources) Obese class II; Translations: [Obesity, unspecified] Onset: 03-05-2018 Resolved: 02-04-2024 03-05-2018 Chronic Other skin disorders (1 source) Disorder of sebaceous gland; Translations: [Other specified follicular disorders] Onset: 02-21-2006 02-21-2006 Episodic Other skin disorders (10 sources) Actinic keratosis; Translations: [Actinic keratosis] Onset: 02-21-2006 02-21-2006 Episodic Residual codes; unclassified (1 source) Disorientation, unspecified; Translations: [DISORIENTATION UNSPECIFIED] Onset: 12-04-2020 Episodic Residual codes; unclassified (10 sources) History of hernia repair; Translations: [Other specified postprocedural states] Onset: 11-25-2016 11-25-2016 Episodic Residual codes; unclassified (11 sources) Edema of foot; Translations: [Localized edema] Onset: 01-17-2023 10-07-2024 Episodic Residual codes; unclassified (9 sources) Disturbance in sleep behavior; Translations: [Sleep disorder, unspecified] Onset: 01-17-2023 01-17-2023 Episodic Spondylosis; intervertebral disc disorders; other back problems (19 sources) Pain in thoracic spine; Translations: [Pain in thoracic spine] Onset: 10-11-2022 10-11-2022 Episodic Suicide and intentional self-inflicted injury (3 sources) Suicidal ideations; Translations: [SUICIDAL IDEATIONS] Onset: 12-06-2020 Episodic Viral infection (9 sources) Disease caused by 2019-nCoV; Translations: [COVID-19] Onset: 10-16-2022 10-16-2022 Episodic Results Test Name Value Interpretation Reference Range Facility Urine Cultureon 11-27-2024 Bacteria identified Cx Nom (U) ORGANISM: Klebsiella pneumoniae (O:KLEPNE) [place] Count >100,000 Aerobic ROSALINDA Charge (NMIC56) --- SUSCEPTIBILITY -- ORGANISM: O:KLEPNE ANTIBIOTIC INTERPRETATION ROSALINDA Amikacin S <16 Amoxacillin/K Clavulanate S <8 Ampicillin/Sulbactam S <4 Aztreonam S <4 Cefazolin S <2 Cefepime S <2 Ceftazidime S <1 Ceftazidime/Avibactam S <4 Ceftolozane/Tazobactam S <2 Ceftriaxone S <1 Cefuroxime S <4 Ciprofloxacin S <0.25 Ertapenem S <0.5 Gentamicin S <2 Levofloxacin S <0.5 Meropenem S <1 Meropenem/Vaborbactam S <2 Nitrofurantoin S <32 Piperacillin/Tazobacta m S <8 Tetracycline S <4 Tigecycline S <2 Tobramycin S <2 Trimethoprim/Sulfameth oxazole S <0.5 S = SUSCEPTIBLE I = INTERMEDIATE R = RESISTANT BLANK = DATA NOT AVAILABLE, OR DRUG NOT ADVISABLE OR TESTED R* = RESISTANCE DUE TO EXTENDED SPECTRUM BETA-LACTAMASES ESBL = EXTENDED SPECTRUM BETA-LACTAMASE TFG = THYMIDINE-DEPENDENT STRAIN GIO = BETA-LACTAMASE POSITIVE IB = INDUCIBLE BETA-LACTAMASE. APPEARS IN PLACE OF 'S' WITH SPECIES KNOWN TO POSSESS INDUCIBLE BETA-LACTAMASES. POTENTIALLY THEY MAY BECOME RESISTANT TO ALL B-LACTAM DRUGS. PERFORMED BY: [facility] [address] [place] [address] PATHOLOGIST CORPORATE WELLNESS COORDINATOR RATNA MARISCAL M.D. Normal [facility] Comment on above: Performed By: #### C UU #### [facility] [address] CSPINE WO CONon CT CSPINE WO CON EXAMINATION: CT CSPI NE WO CON HISTORY: UNSPECIFIED INJURY OF HEAD, INITIAL ENCOUNTER COMPARISON: None. TECHNIQUE: CT Cervical spine without IV contrast. Coronal and sagittal reformations were performed. Dose reduction techniques were achieved by using automated exposure control and/or adjustment of mA and/or kV according to patient size and/or use of iterative reconstruction technique. FINDINGS: Straightening of the cervical spine. Vertebral bodies are anatomically aligned. Vertebral body heights are preserved. There is no evidence for acute fracture. There is no evidence for acute subluxation. Scattered moderate to severe disc space narrowing throughout the cervical spine. Prevertebral soft tissues are normal in thickness. C2-C3: Severe left facet arthropathy. No stenosis. C3-C4: Severe left facet arthropathy. No stenosis. C4-C5: Diffuse disc osteophyte complex and moderate facet arthropathy. Moderate bilateral foraminal stenosis. C5-C6: Diffuse disc osteophyte complex and moderate facet arthropathy. Severe right and moderate left foraminal stenosis. C6-C7: Disc osteophyte complex. Mild left foraminal stenosis. C7-T1: No stenosis. No airspace consolidation in the included lung apices. IMPRESSION: 1. Negative for acute fracture or traumatic subluxation. 2. Moderate to severe multilevel degenerative disc disease and facet arthropathy in the cervical spine. Electronically authenticated by: VANNESSA DEL VALLE Date: 2021-04-19 09:03 Normal [facility] CT HEAD WO CONon 04-19-2021 CT HEAD WO CON EXAMINATION: CT HEAD WO CON HISTORY: History of fall COMPARISON: None. TECHNIQUE: CT examination of the head without IV contrast. Dose reduction techniques were achieved by using automated exposure control and/or adjustment of mA and/or kV according to patient size and/or use of iterative reconstruction technique. FINDINGS: There is mild prominence of the ventricles and sulci. There is no evidence for acute intracranial hemorrhage. There is mild hypoattenuation in the supratentorial white matter. There is no mass effect or midline shift. There are no abnormal extraaxial fluid collections. IMPRESSION: 1. Negative for acute intracranial hemorrhage or acute intracranial process. 2. Mild to moderate generalized cerebral atrophy and chronic microvascular ischemia in the supratentorial white matter. Electronically authenticated by: VANNESSA DEL VALLE Date: 2021-04-19 08:58 Normal [facility] XR TIB_FIB LT 2Von XR TIB_FIB LT 2V EXAM: XR TIB_FIB LT 2V HISTORY: History of fall COMPARISON: None. TECHNIQUE: 2 views left tib-fib FINDINGS: No evidence of fracture. There is generalized soft tissue swelling most pronounced anterolaterally. No radiopaque foreign body. Arterial vascular calcifications noted. IMPRESSION: Soft tissue swelling without evidence of acute fracture. Electronically authenticated by: CHERIE LIZARRAGA Date: 2021-04-19 08:51 Normal [facility] [facility] CULTURE URINEon 12-09-2020 CULTURE URINE Isolate 1 Escherichia coli >100,000 cfu/ml of ORGANISM 1 Escherichia coli ANTIBIOTIC M.I.C RX STATUS Ampicillin >=32 R F Ampicillin/Sulbactam >=32 R F Piperacillin/Tazobacta m 8 S F Cefazolin >=64 R F Ceftazidime 4 R F Ceftriaxone >=64 R F Ertapenem <=0.5 S F Imipenem <=0.25 S F Amikacin 16 S F Gentamicin 4 S F Tobramycin >=16 R F Ciprofloxacin >=4 R F Levofloxacin >=8 R F Nitrofurantoin <=16 S F Trimethoprim/Sulfameth oxazole >=320 R F Normal [facility] Comment on above: Performed By: #### C #### [facility] [address] [place] [address] Jody Kayla ACETAMINOPHENon 12-07-2020 Acetaminophen [Mass/Vol] ug/mL Critically low 10.1-30.0 [facility] Comment on above: Performed By: #### C MP #### [facility] [address] [place], [place] [id number] Jody Garza CBC AUTO DIFFon 12-07-2020 BASO # 0.1 103/ul Normal 0.0-0.1 [facility] Comment on above: Performed By: #### C BC #### [facility] [address] [place] [address] Jody Garza Basophils/100 WBC (Bld) 1.0 % Normal 0.2-2.0 [facility] Comment on above: Performed By: #### C BC #### [facility] [address] [place] [address] Jody Garza EO # 0.2 103/ul Normal 0.0-0.7 [facility] Comment on above: Performed By: #### C BC #### [facility] [address] [place] [address] Jody Garza Eosinophils/100 WBC (Bld) 2.0 % Normal 0.9-7.0 [facility] Comment on above: Performed By: #### C BC #### [facility] [address] [place] [address] Jody Garza Erythrocyte distribution width (RBC) [Ratio] 14.0 % Normal 11.0-15.0 [facility] Comment on above: Performed By: #### C BC #### [facility] [address] [place] [address] Jodywily Garza Hematocrit (Bld) [Volume fraction] 39.9 % Normal 36.0-48.0 [facility] Comment on above: Performed By: #### C BC #### [facility] [address] [place] [address] Jody Kayla Hemoglobin (Bld) [Mass/Vol] 12.6 g/dL Normal 12.0-16.0 [facility] Comment on above: Performed By: #### C BC #### [facility] [address] [place], [place] [id number] Jodywily Garza IG # 0.02 10e3/ul Normal 0.00-0.03 [facility] Comment on above: Performed By: #### C BC #### [facility] [address] [place] [address] Jodywily Garza IG % 0.2 % Normal 0.0-0.5 [facility] Comment on above: Performed By: #### C BC #### [facility] [address] [place] [address] Jodywily Garza LYMPH # 2.5 103/ul Normal 1.2-3.8 [facility] Comment on above: Performed By: #### C BC #### [facility] [address] [place] [address] Jody Garza Lymphocytes/100 WBC (Bld) 30.9 % Normal 20.5-60.0 [facility] Comment on above: Performed By: #### C BC #### [facility] [address] [place] [address] Jody Garza MANUAL DIFF REQ NO Normal [facility] Comment on above: Performed By: #### C BC #### [facility] [address] [place] [address] Jodywily Garza MCH (RBC) [Entitic mass] 29.2 pg Normal 26.7-34.0 [facility] Comment on above: Performed By: #### C BC #### [facility] [address] [place] [address] Jody Garza MCHC (RBC) [Mass/Vol] 31.6 g/dL Normal 29.9-35.2 [facility] Comment on above: Performed By: #### C BC #### [facility] [address] [place] [address] Jodywily Garza MCV (RBC) [Entitic vol] 92.4 fL Normal 81.0-99.0 [facility] Comment on above: Performed By: #### C BC #### [facility] [address] [place] [address] Jody Kayla MONO # 0.5 103/ul Normal 0.3-0.8 [facility] Comment on above: Performed By: #### C BC #### [facility] [address] [place] [id number] Jody Kayla Monocytes/100 WBC (Bld) 6.2 % Normal 1.7-12.0 [facility] Comment on above: Performed By: #### C BC #### [facility] [address] [place], [place] [id number] Jodywily Vicken NEUT # 4.8 103/ul Normal 1.4-6.5 [facility] Comment on above: Performed By: #### C BC #### [facility] [address] [place], [place] [id number] Jody Kayla Neutrophils/100 WBC (Bld) 59.7 % Normal 43.0-75.0 [facility] Comment on above: Performed By: #### C BC #### [facility] [address] [place], [place] [id number] Jody Garza Platelet mean volume (Bld) [Entitic vol] 11.2 fL Normal 9.5-13.5 [facility] Comment on above: Performed By: #### C BC #### [facility] [address] [place], [place] [id number] Jody Kayla PLT 294 103/ul Normal 150-450 [facility] Comment on above: Performed By: #### C BC #### [facility] [address] [place], [place] [id number] Jody Kayla RBC 4.32 106/ul Normal 4.20-5.40 [facility] Comment on above: Performed By: #### C BC #### [facility] [address] [place], [place] [id number] Jody Kayla WBC 8.1 103/ul Normal 4.0-11.0 [facility] Comment on above: Performed By: #### C BC #### [facility] [address] [place], [place] [id number] Jody Garza DRUG SCREEN RAPID (URINE)on 12-07-2020 AMP Negative Normal NEGATIVE [facility] Comment on above: Performed By: #### MELY ARDON, DRUGRPD #### [facility] [address] [address] Jody Kayla BAR Negative Normal NEGATIVE [facility] Comment on above: Performed By: #### MELY ARDON DRUGPÉREZD #### [facility] [address] [place] [address] Jody Kayla BUP Negative Normal NEGATIVE [facility] Comment on above: Performed By: #### MELY ARDON DRUGPÉREZD #### [facility] [address] [place] [address] Jody Kayla BZO Positive Abnormal NEGATIVE [facility] Comment on above: Performed By: #### MELY ARDON DRUGPÉREZD #### [facility] [address] [place] [address] Jody Kayla SUELLEN Negative Normal NEGATIVE [facility] Comment on above: Performed By: #### MELY ARDON DRUGPÉREZD #### [facility] [address] [place] [address] Jody Kayla CUT-OFFS SEE BELOW Normal [facility] Comment on above: Result Comment: AMP (Amphetamine): 500ng/mL, BAR (Barbituates): 200 ng/mL, BZO (Benzodiazepines): 150 ng/mL, BUP (Buprenorphine): 10 ng/mL, SUELLEN (Cocaine): 150 ng/mL, mAMP (Methamphetamine): 500 ng/mL, MTD (Methadone): 200 ng/mL, OPI (Opiates): 100 ng/mL, OXY (Oxycodone): 100 ng/mL, PCP (Phencyclidine): 25 ng/mL, PPX (Propoxyphene): 300 ng/mL, THC (Cannabinoids): 50 ng/mL, TCA (Trycyclic Antidepressants): 300 ng/mL Performed By: #### MELY ARDON DRUGRPD #### [facility] [address] [place] [address] Jody Kayla DRUG CUT HEADER DRUG CLASS TEST SYST EM CUT-OFF CONCENTRATIONS ARE FOLLOWS: Normal [facility] Comment on above: Performed By: #### MELY ARDON DRUGRPD #### [facility] [address] [place] [address] Jody Kayla mAMP Negative Normal NEGATIVE [facility] Comment on above: Performed By: #### MELY ARDON DRUGRPD #### [facility] [address] [place] [address] Jody Kayla MTD Negative Normal NEGATIVE [facility] Comment on above: Performed By: #### MELY ARDON, DRUGRPD #### [facility] [address] [place] [address] Jody Kayla OPI Negative Normal NEGATIVE [facility] Comment on above: Performed By: #### MELY RADON, DRUGRPD #### [facility] [address] [place] [address] Jody Kayla OXY Negative Normal NEGATIVE [facility] Comment on above: Performed By: #### MELY ARDON, DRUGRPD #### [facility] [address] [place] [address] Jody Kayla PCP Negative Normal NEGATIVE [facility] Comment on above: Performed By: #### MELY ARDON, DRUGRPD #### [facility] [address] [place] [address] Jody Kayla PPX Negative Normal NEGATIVE [facility] Comment on above: Performed By: #### MELY ARDON, DRUGRPD #### [facility] [address] [place] [address] Jody Kayla TCA Negative Normal NEGATIVE [facility] Comment on above: Performed By: #### MELY ARDON, DRUGRPD #### [facility] [address] [place] [address] Jody Kayla THC Negative Normal NEGATIVE [facility] Comment on above: Performed By: #### MELY ARDON, DRUGRPD #### [facility] [address] [place] [address] Jody Kayla ER URINE PROFILEon 1 Bilirubin Ql (U) Negative Normal NEGATIVE [facility] Comment on above: Performed By: #### MELY ARDON DRUGRPD #### [facility] [address] [address] Jody Kayla Clarity (U) CLEAR Normal CLEAR [facility] Comment on above: Performed By: #### MELY ARDON DRUGRPD #### [facility] [address] [address] Jody Kayla Color (U) LT. YELLOW Normal YELLOW [facility] Comment on above: Performed By: #### MELY ARDON DRUGRPD #### [facility] [address] [place] [address] Jody Kayla ERUAHD A micrscopic examination will be performed if indicated. Normal [facility] Comment on above: Performed By: #### MELY ARDON DRUGRPD #### [facility] [address] [place] [address] Jody Kayla Glucose Ql (U) Negative Normal NEGATIVE [facility] Comment on above: Performed By: #### MELY ARDON DRUGRPD #### [facility] [address] [place] [address] Jody Kayla Hemoglobin Ql (U) Negative Normal NEGATIVE [facility] Comment on above: Performed By: #### MELY ARDON DRUGRPD #### [facility] [address] [place] [address] Jody Kayla Ketones Ql (U) Negative Normal NEGATIVE [facility] Comment on above: Performed By: #### MELY ARDON DRUGRPD #### [facility] [address] [place] [address] Jody Kayla LEUKOCYTES MODERATE Abnormal NEGATIVE [facility] Comment on above: Performed By: #### MELY ARDON DRUGPÉREZD #### [facility] [address] [place] [address] Jody Kayla Nitrite Ql (U) Positive Abnormal NEGATIVE [facility] Comment on above: Performed By: #### MELY ARDON DRUGRPD #### [facility] [address] [address] Jody Garza pH (U) 5.5 [pH] Normal 5-9 [facility] Comment on above: Performed By: #### MELY ARDON DRUGRPD #### [facility] [address] [place] [address] Jody Garza SPEC GRAVITY 1.015 Normal 1.005-<=1.025 [facility] Comment on above: Performed By: #### MELY ARDON DRUGRPD #### [facility] [address] [place], [place] [id number] Jody Garza UA PROTEIN Negative Normal NEGATIVE/ TRACE [facility] Comment on above: Performed By: #### MELY ARDON DRUGRPD #### [facility] [address] [place] [address] Jody Garza UR MICRO IND INDICATED Normal [facility] Comment on above: Performed By: #### MELY ARDON DRUGRPD #### [facility] [address] [place] [address] Jody Garza Urobilinogen Qn (U) 0.2 {Rai'U}/dL Normal 0.2 - 1. 0 [facility] Comment on above: Performed By: #### MELY ARDON DRUGRPD #### [facility] [address] [place], [place] [id number] Jodywily Garza ETHANOL (BLD ALC)on 12-07-19 21 ALC NOTE NOTE: 80 mg/dl is th e legal limit for a blood alcohol level Normal [facility] Comment on above: Performed By: #### E TH #### [facility] [address] [place], [place] [address] Jodywily Garza Ethanol [Mass/Vol] mg/dL Normal [facility] Comment on above: Performed By: #### E TH #### [facility] [address] [place], [place] [address] Jody Garza PROF 14(COMP METB)on 021 Albumin [Mass/Vol] 3.5 g/dL Normal 3.5-5.0 [facility] Comment on above: Performed By: #### C MP #### [facility] [address] [place], [place] [address] Jody Kayla Albumin/Globulin [Mass ratio] 1.0 {ratio} Normal [facility] Comment on above: Performed By: #### C MP #### [facility] [address] [id number] Jody Kayla ALP [Catalytic activity/Vol] 66 U/L Normal 38-126 [facility] Comment on above: Performed By: #### C MP #### [facility] [address] [id number] Jody Kayla ALT [Catalytic activity/Vol] 19 U/L Normal 9-52 [facility] Comment on above: Performed By: #### C MP #### [facility] [address] [place] [address] Jody Kayla Anion gap [Moles/Vol] 12.1 mmol/L Normal [facility] Comment on above: Performed By: #### C MP #### [facility] [address] [place] [address] Jody Kayla AST [Catalytic activity/Vol] 21 U/L Normal 14-36 [facility] Comment on above: Performed By: #### C MP #### [facility] [address] [place], [place] [address] Jody Kayla Bilirubin [Mass/Vol] 0.5 mg/dL Normal 0.2-1.3 [facility] Comment on above: Performed By: #### C MP #### [facility] [address] [place], [place] [address] Jody Kayla Calcium [Mass/Vol] 10.3 mg/dL Critically high 8.4-10.2 [facility] Comment on above: Performed By: #### C MP #### [facility] [address] [place], [place] [address] Jody Kayla Chloride [Moles/Vol] 104 mmol/L Normal 98-107 [facility] Comment on above: Performed By: #### C MP #### [facility] [address] [place], [place] [address] Jody Kayla CO2 [Moles/Vol] 30.0 mmol/L Normal 22.0-30.[address] [facility] Comment on above: Performed By: #### C MP #### [facility] [address] [id number] Jody Kayla Creatinine [Mass/Vol] 1.27 mg/dL Critically high 0.52-1.04 [facility] Comment on above: Performed By: #### C MP #### [facility] [address] [address] Jody Kayla EGFR-AF BANGLADESHI 48 mL/min/1.73m2 Critically low >=60 [facility] Comment on above: Performed By: #### C MP #### [facility] [address] [place] [address] Jody Kayla EGFR-NON AF BANGLADESHI 40 mL/min/1.73m2 Critically low >=60 [facility] Comment on above: Performed By: #### C MP #### [facility] [address] [place] [address] Jody Kayla Globulin (S) [Mass/Vol] 3.6 g/dL Normal [facility] Comment on above: Performed By: #### C MP #### [facility] [address] [place] [address] Jody Kayla Glucose [Mass/Vol] 166 mg/dL Critically high 74-106 [facility] Comment on above: Performed By: #### C MP #### [facility] [address] [place] [address] Jody Kayla Potassium [Moles/Vol] 3.1 mmol/L Critically low 3.4-5.0 [facility] Comment on above: Performed By: #### C MP #### [facility] [address] [place], [place] [address] Jody Kayla Protein [Mass/Vol] 7.1 g/dL Normal 6.1-8.2 [facility] Comment on above: Performed By: #### C MP #### [facility] [address] [place], [place] [address] Jody Kayla Sodium [Moles/Vol] 143 mmol/L Normal 137-145 [facility] Comment on above: Performed By: #### C MP #### [facility] [address] [place] [address] Jody Kayla Urea nitrogen [Mass/Vol] 19.0 mg/dL Critically high 7.0-17.0 [facility] Comment on above: Performed By: #### C MP #### [facility] [address] [place] [address] Jody Kayla Urea nitrogen/Creatinine [Mass ratio] 15.0 mg/mg Normal [facility] Comment on above: Performed By: #### C MP #### [facility] [address] [place] [address] Jody Kayla RESPIRATORY PANEL PLUSon Adenovirus Not detected Normal NOT DETECTED [facility] Comment on above: Performed By: #### C MP #### [facility] [address] [place] [address] Jody Kayla B. Parapertusis Not detected Normal NOT DETECTED [facility] Comment on above: Performed By: #### C MP #### [facility] [address] [place] [address] Jody Kayla B. Pertussis Not detected Normal NOT DETECTED [facility] Comment on above: Performed By: #### C MP #### [facility] [address] [place] [address] Jody Kayla Chlamydia Pneumoniae Not detected Normal NOT DETECTED [facility] Comment on above: Performed By: #### C MP #### [facility] [address] [place] [address] Jody Kayla Coronavirus 229E Not detected Normal NOT DETECTED [facility] Comment on above: Performed By: #### C MP #### [facility] [address] [place] [address] Jody Kayla Coronavirus HKU1 Not detected Normal NOT DETECTED [facility] Comment on above: Performed By: #### C MP #### [facility] [address] [place] [address] Jody Kayla Coronavirus NL63 Not detected Normal NOT DETECTED [facility] Comment on above: Performed By: #### C MP #### [facility] [address] [address] Jody Kayla Coronavirus OC43 Not detected Normal NOT DETECTED [facility] Comment on above: Performed By: #### C MP #### [facility] [address] [address] Jody Kayla Influenza A H1 2009 Not detected Normal NOT DETECTED [facility] Comment on above: Performed By: #### C MP #### [facility] [address] [address] Jody Kayla Influenza B Not detected Normal NOT DETECTED [facility] Comment on above: Performed By: #### C MP #### [facility] [address] [place] [address] Jody Kayla Metapneumovirus Not detected Normal NOT DETECTED [facility] Comment on above: Performed By: #### C MP #### [facility] [address] [address] Jody Kayla Mycoplas. Pneumoniae Not detected Normal NOT DETECTED [facility] Comment on above: Performed By: #### C MP #### [facility] [address] [place] [address] Jody Kayla Parainfluenza 1 Not detected Normal NOT DETECTED [facility] Comment on above: Performed By: #### C MP #### [facility] [address] [place] [address] Jody Kayla Parainfluenza 2 Not detected Normal NOT DETECTED [facility] Comment on above: Performed By: #### C MP #### [facility] [address] [address] Jody Kayla Parainfluenza 3 Not detected Normal NOT DETECTED [facility] Comment on above: Performed By: #### C MP #### [facility] [address] [address] Jody Kayla Parainfluenza 4 Not detected Normal NOT DETECTED [facility] Comment on above: Performed By: #### C MP #### [facility] [address] [place] [address] Jody Kayla Rhino/Enterovirus Not detected Normal NOT DETECTED [facility] Comment on above: Performed By: #### C MP #### [facility] [address] [place] [address] Jody Garza RP2 Header 1 RESPIRATORY PANEL: VIRUSES Normal [facility] Comment on above: Performed By: #### C MP #### [facility] [address] [place] [address] Jody Kayla RP2 Header 2 RESPIRATORY PANEL: BACTERIA Normal [facility] Comment on above: Performed By: #### C MP #### [facility] [address] [place] [address] Kayla RP2 Header 4 EUA SEE BELOW Normal [facility] Comment on above: Result Comment: This test is not yet approved or cleared by the [place] FDA. When there are no FDA-approved or cleared tests available, and other criteria are met, FDA can make tests available under an emergency access mechanism called an Emergency Use Authorization (EUA). The EUA for this test is supported by the [place] of Health and Human Service?s (HHS?s) declaration that circumstances exist to justify the emergency use of in vitro diagnostics for the detection and/or diagnosis of the virus that causes COVID-19. This EUA will remain in effect (meaning this test can be used) for the duration of the COVID-19 declaration justifying emergency of IVDs, unless it is terminated or revoked by FDA (after which the test may no longer be used). Performed By: #### C MP #### [facility] [address] [place] [address] Jody Kayla RSV Not detected Normal NOT DETECTED [facility] Comment on above: Performed By: #### C MP #### [facility] [address] [place] [address] Jody Kayla SARS-CoV-2 (COVID-19) RNA ERIKA+probe Ql (Unsp spec) Not detected Normal NOT DETECTED [facility] Comment on above: Performed By: #### C MP #### [facility] [address] [place] [address] Jody Kayla SALICYLATEon 12-07-2020 SALICYLATE <1.0 Normal <=20.0 [facility] Comment on above: Performed By: #### C MP #### [facility] [address] [place] [address] Jody Kayla URINE MICROSCOPIC ONLYon BACTERIA MODERATE Abnormal NONE SEEN [facility] Comment on above: Performed By: #### MELY ARDON DRUGRPD #### [facility] [address] [place] [address] Jody Kayla Bacteria identified Cx Nom (U) INDICATED Normal [facility] Comment on above: Performed By: #### MELY ARDON DRUGRPD #### [facility] [address] [place] [address] Jody Kayla CAST NONE SEEN Normal NONE SEEN [facility] Comment on above: Performed By: #### MELY ARDON DRUGPÉREZD #### [facility] [address] [place] [address] Jody Kayla Crystals LM Nom (Urine sed) NONE SEEN Normal NONE SEEN [facility] Comment on above: Performed By: #### MELY ARDON DRUGRPD #### [facility] [address] [place] [address] Jody Kayla Epithelial cells LM Ql (Urine sed) NONE SEEN Normal NONE SEEN /RARE [facility] Comment on above: Performed By: #### MELY ARDON DRUGRPD #### [facility] [address] [place] [address] Jody Kayla MUCOUS NONE SEEN Normal NONE SEEN [facility] Comment on above: Performed By: #### MELY ARDON DRUGRPD #### [facility] [address] [place] [address] Jody Kayla RBC NONE SEEN Abnormal 0-2 [facility] Comment on above: Performed By: #### MELY ARDON DRUGRPD #### [facility] [address] [place] [address] Jody Kayla WBC 5-10 Abnormal NONE SEEN [facility] Comment on above: Performed By: #### E MELY LERNER, DRUGRPD #### [facility] [address] [place], [place] [id number] Jody Kayla CULTURE URINEon 11-19-2020 CULTURE URINE Isolate 1 Escherichia coli >100,000 cfu/ml of ORGANISM 1 Escherichia coli ANTIBIOTIC M.I.C RX STATUS Ampicillin >=32 R F Ampicillin/Sulbactam >=32 R F Piperacillin/Tazobacta m <=4 S F Cefazolin >=64 R F Ceftazidime 4 R F Ceftriaxone >=64 R F Ertapenem <=0.5 S F Imipenem <=0.25 S F Amikacin 8 S F Gentamicin <=1 S F Tobramycin >=16 R F Ciprofloxacin >=4 R F Levofloxacin >=8 R F Nitrofurantoin <=16 S F Trimethoprim/Sulfameth oxazole >=320 R F Normal [facility] Comment on above: Performed By: #### C MP #### [facility] [address] [place], [place] [id number] Jody Kayla CBC AUTO DIFFon 11-18-2020 BASO # 0.0 103/ul Normal 0.0-0.1 [facility] Comment on above: Performed By: #### C MP #### [facility] [address] [place], [place] [id number] Jody Kayla Basophils/100 WBC (Bld) 0.5 % Normal 0.2-2.0 [facility] Comment on above: Performed By: #### C MP #### [facility] [address] [place], [place] [address] Jody Kayla EO # 0.7 103/ul Normal 0.0-0.7 [facility] Comment on above: Performed By: #### C MP #### [facility] [address] [place], [place] [id number] Jody Kayla Eosinophils/100 WBC (Bld) 10.7 % Critically high 0.9-7.0 [facility] Comment on above: Performed By: #### C MP #### [facility] [address] [place], [place] [id number] Jody Kayla Erythrocyte distribution width (RBC) [Ratio] 14.0 % Normal 11.0-15.0 [facility] Comment on above: Performed By: #### C MP #### [facility] [address] [place] [address] Jody Garza Hematocrit (Bld) [Volume fraction] 33.3 % Critically low 36.0-48.0 [facility] Comment on above: Performed By: #### C MP #### [facility] [address] [place] [address] Jody Garza Hemoglobin (Bld) [Mass/Vol] 10.4 g/dL Critically low 12.0-16.0 [facility] Comment on above: Performed By: #### C MP #### [facility] [address] [place] [address] Jody Garza IG # 0.01 10e3/ul Normal 0.00-0.03 [facility] Comment on above: Performed By: #### C MP #### [facility] [address] [place] [address] Jody Garza IG % 0.2 % Normal 0.0-0.5 [facility] Comment on above: Performed By: #### C MP #### [facility] [address] [place] [address] Jody Garza LYMPH # 2.2 103/ul Normal 1.2-3.8 [facility] Comment on above: Performed By: #### C MP #### [facility] [address] [place] [address] Jody Garza Lymphocytes/100 WBC (Bld) 35.2 % Normal 20.5-60.0 [facility] Comment on above: Performed By: #### C MP #### [facility] [address] [place] [address] Jody Garza MANUAL DIFF REQ NO Normal [facility] Comment on above: Performed By: #### C MP #### [facility] [address] [place] [address] Jody Garza MCH (RBC) [Entitic mass] 29.5 pg Normal 26.7-34.0 [facility] Comment on above: Performed By: #### C MP #### [facility] [address] [id number] Jody Garza MCHC (RBC) [Mass/Vol] 31.2 g/dL Normal 29.9-35.2 [facility] Comment on above: Performed By: #### C MP #### [facility] [address] [id number] Jody Garza MCV (RBC) [Entitic vol] 94.6 fL Normal 81.0-99.0 [facility] Comment on above: Performed By: #### C MP #### [facility] [address] [place] [address] Jody Garza MONO # 0.4 103/ul Normal 0.3-0.8 [facility] Comment on above: Performed By: #### C MP #### [facility] [address] [place] [address] Jody Garza Monocytes/100 WBC (Bld) 5.6 % Normal 1.7-12.0 [facility] Comment on above: Performed By: #### C MP #### [facility] [address] [place], [place] [address] Jody Garza NEUT # 3.0 103/ul Normal 1.4-6.5 [facility] Comment on above: Performed By: #### C MP #### [facility] [address] [place], [place] [address] Jody Garza Neutrophils/100 WBC (Bld) 47.8 % Normal 43.0-75.0 [facility] Comment on above: Performed By: #### C MP #### [facility] [address] [id number] Jody Garza Platelet mean volume (Bld) [Entitic vol] 11.3 fL Normal 9.5-13.5 [facility] Comment on above: Performed By: #### C MP #### [facility] [address] [id number] Jody Kayla PLT 196 103/ul Normal 150-450 [facility] Comment on above: Performed By: #### C MP #### [facility] [address] [place] [address] Jodywily Vicken RBC 3.52 106/ul Critically low 4.20-5.40 [facility] Comment on above: Performed By: #### C MP #### [facility] [address] [place], [place] [address] Jodywily Vicken WBC 6.3 103/ul Normal 4.0-11.0 [facility] Comment on above: Performed By: #### C MP #### [facility] [address] [place], [place] [address] Jodywily Garza POINT OF CARE GLUCOSEon 02-0 Glucose [Mass/Vol] 140 mg/dL Critically high 74-106 [facility] Comment on above: Performed By: #### MELY GRIMES #### [facility] [address] [place], [place] [address] Jody Garza PROF 14(COMP METB)on 021 Albumin [Mass/Vol] 2.8 g/dL Critically low 3.5-5.0 [facility] Comment on above: Performed By: #### MELY GRIMES #### [facility] [address] [place], [place] [address] Jodywily Garza Albumin/Globulin [Mass ratio] 0.9 {ratio} Normal [facility] Comment on above: Performed By: #### MELY GRIMES #### [facility] [address] [place], [place] [address] Jody Kayla ALP [Catalytic activity/Vol] 56 U/L Normal 38-126 [facility] Comment on above: Performed By: #### MELY GRIMES #### [facility] [address] [place], [place] [address] Jody Kayla ALT [Catalytic activity/Vol] 19 U/L Normal 9-52 [facility] Comment on above: Performed By: #### MELY GRIMES #### [facility] [address] [place], [place] [phone] Jody Kayla Anion gap [Moles/Vol] 11.9 mmol/L Normal [facility] Comment on above: Performed By: #### MELY GRIMES #### [facility] [address] [place] [address] Jody Kayla AST [Catalytic activity/Vol] 27 U/L Normal 14-36 [facility] Comment on above: Performed By: #### MELY GRIMES #### [facility] [address] [place] [address] Jody Kayla Bilirubin [Mass/Vol] 0.4 mg/dL Normal 0.2-1.3 [facility] Comment on above: Performed By: #### MELY GRIMES #### [facility] [address] [place] [address] Jody Kayla Calcium [Mass/Vol] 8.9 mg/dL Normal 8.4-10.2 [facility] Comment on above: Performed By: #### MELY GRIMES #### [facility] [address] [place] [address] Jody Kayla Chloride [Moles/Vol] 109 mmol/L Critically high 98-107 [facility] Comment on above: Performed By: #### MELY GRIMES #### [facility] [address] [place] [address] Jody Kayla CO2 [Moles/Vol] 27.1 mmol/L Normal 22.0-30.0 [facility] Comment on above: Performed By: #### MELY GRIMES #### [facility] [address] [place] [address] Jody Kayla Creatinine [Mass/Vol] 1.18 mg/dL Critically high 0.52-1.04 [facility] Comment on above: Performed By: #### MELY GRIMES #### [facility] [address] [place] [address] Jody Kayla EGFR-AF BANGLADESHI 53 mL/min/1.73m2 Critically low >=60 [facility] Comment on above: Performed By: #### MELY GRIMES #### [facility] [address] [id number] Jody Kayla EGFR-NON AF BANGLADESHI 44 mL/min/1.73m2 Critically low >=60 [facility] Comment on above: Performed By: #### MELY GRIMES #### [facility] [address] [phone] Jody Kayla Globulin (S) [Mass/Vol] 3.0 g/dL Normal [facility] Comment on above: Performed By: #### MELY GRIMES #### [facility] [address] [address] Jody Kayla Glucose [Mass/Vol] 124 mg/dL Critically high 74-106 [facility] Comment on above: Performed By: #### MELY GRIMES #### [facility] [address] [place] [address] Jody Kayla Potassium [Moles/Vol] 3.0 mmol/L Critically low 3.4-5.0 [facility] Comment on above: Performed By: #### MELY GRIMES #### [facility] [address] [address] Jody Kayla Protein [Mass/Vol] 5.8 g/dL Critically low 6.1-8.2 [facility] Comment on above: Performed By: #### MELY GRIMES #### [facility] [address] [phone] Jody Kayla Sodium [Moles/Vol] 145 mmol/L Normal 137-145 [facility] Comment on above: Performed By: #### MELY GRIMES #### [facility] [address] [phone] Jody Kayla Urea nitrogen [Mass/Vol] 19.0 mg/dL Critically high 7.0-17.0 [facility] Comment on above: Performed By: #### MELY GRIMES #### [facility] [address] [phone] Jody Kayla Urea nitrogen/Creatinine [Mass ratio] 16.1 mg/mg Normal [facility] Comment on above: Performed By: #### U MELY CABRERA #### [facility] [address] [place], [place] [id number] Jodywily Vicken C. DIFF PCRon 11-17-2020 C. DIFFICILE PCR Negative Normal NEGATIVE [facility] Comment on above: Performed By: #### C DIFPOC #### [facility] [address] [place], [place] [address] Jody Kayla CBC AUTO DIFFon 11-17-2020 BASO # 0.0 103/ul Normal 0.0-0.1 [facility] Comment on above: Performed By: #### C MP #### [facility] [address] [place] [address] Jody Kayla Basophils/100 WBC (Bld) 0.6 % Normal 0.2-2.0 [facility] Comment on above: Performed By: #### C MP #### [facility] [address] [place] [address] Jody Kayla EO # 0.4 103/ul Normal 0.0-0.7 [facility] Comment on above: Performed By: #### C MP #### [facility] [address] [place] [address] Jody Kayla Eosinophils/100 WBC (Bld) 6.9 % Normal 0.9-7.0 [facility] Comment on above: Performed By: #### C MP #### [facility] [address] [place], [place] [address] Jody Kayla Erythrocyte distribution width (RBC) [Ratio] 13.6 % Normal 11.0-15.0 [facility] Comment on above: Performed By: #### C MP #### [facility] [address] [place], [place] [address] Jody Kayla Hematocrit (Bld) [Volume fraction] 33.5 % Critically low 36.0-48.0 [facility] Comment on above: Performed By: #### C MP #### [facility] [address] [place], [place] [address] Jody Kayla Hemoglobin (Bld) [Mass/Vol] 10.8 g/dL Critically low 12.0-16.0 [facility] Comment on above: Performed By: #### C MP #### [facility] [address] [place] [address] Jodywily Garza IG # 0.01 10e3/ul Normal 0.00-0.03 [facility] Comment on above: Performed By: #### C MP #### [facility] [address] [place] [address] Jodywily Garza IG % 0.2 % Normal 0.0-0.5 [facility] Comment on above: Performed By: #### C MP #### [facility] [address] [place] [address] Jody Garza LYMPH # 1.8 103/ul Normal 1.2-3.8 [facility] Comment on above: Performed By: #### C MP #### [facility] [address] [place] [address] Jody Garza Lymphocytes/100 WBC (Bld) 35.9 % Normal 20.5-60.0 [facility] Comment on above: Performed By: #### C MP #### [facility] [address] [place] [address] Jody Garza MANUAL DIFF REQ NO Normal [facility] Comment on above: Performed By: #### C MP #### [facility] [address] [place] [address] Jody Garza MCH (RBC) [Entitic mass] 29.8 pg Normal 26.7-34.0 [facility] Comment on above: Performed By: #### C MP #### [facility] [address] [place] [address] Jody Garza MCHC (RBC) [Mass/Vol] 32.2 g/dL Normal 29.9-35.2 [facility] Comment on above: Performed By: #### C MP #### [facility] [address] [place] [address] Jody Garza MCV (RBC) [Entitic vol] 92.3 fL Normal 81.0-99.0 [facility] Comment on above: Performed By: #### C MP #### [facility] [address] [phone] Jody Kayla MONO # 0.3 103/ul Normal 0.3-0.8 [facility] Comment on above: Performed By: #### C MP #### [facility] [address] [phone] Jody Kayla Monocytes/100 WBC (Bld) 6.2 % Normal 1.7-12.0 [facility] Comment on above: Performed By: #### C MP #### [facility] [address] [address] Jody Kayla NEUT # 2.5 103/ul Normal 1.4-6.5 [facility] Comment on above: Performed By: #### C MP #### [facility] [address] [place] [address] Jody Kayla Neutrophils/100 WBC (Bld) 50.2 % Normal 43.0-75.0 [facility] Comment on above: Performed By: #### C MP #### [facility] [address] [phone] Jodywily Vicken Platelet mean volume (Bld) [Entitic vol] 11.4 fL Normal 9.5-13.5 [facility] Comment on above: Performed By: #### C MP #### [facility] [address] [place], [place] [address] Jody Kayla PLT 198 103/ul Normal 150-450 [facility] Comment on above: Performed By: #### C MP #### [facility] [address] [phone] Jody Kayla RBC 3.63 106/ul Critically low 4.20-5.40 [facility] Comment on above: Performed By: #### C MP #### [facility] [address] [phone] Jody Kayla WBC 5.0 103/ul Normal 4.0-11.0 [facility] Comment on above: Performed By: #### C MP #### [facility] [address] [place], [place] [address] Jodywily Garza POINT OF CARE GLUCOSEon Glucose [Mass/Vol] 114 mg/dL Critically high 74-106 [facility] Comment on above: Performed By: #### U MELY CABRERA #### [facility] [address] [place], [place] [address] Jody Kayla Glucose [Mass/Vol] 93 mg/dL Normal 74-106 [facility] Comment on above: Performed By: #### P OCGLUC #### [facility] [address] [place] [address] Jody Kayla Glucose [Mass/Vol] 131 mg/dL Critically high 74-106 [facility] Comment on above: Performed By: #### U MELY CABRERA #### [facility] [address] [place], [place] [address] Jody Vicken PROF 14(COMP METB)on 021 Albumin [Mass/Vol] 2.9 g/dL Critically low 3.5-5.0 [facility] Comment on above: Performed By: #### C MP #### [facility] [address] [place] [address] Jody Kayla Albumin/Globulin [Mass ratio] 1.0 {ratio} [facility] Comment on above: Performed By: #### C MP #### [facility] [address] [place] [address] Jody Kayla ALP [Catalytic activity/Vol] 59 U/L Normal 38-126 [facility] Comment on above: Performed By: #### C MP #### [facility] [address] [place] [address] Jody Kayla ALT [Catalytic activity/Vol] 17 U/L Normal 9-52 [facility] Comment on above: Performed By: #### C MP #### [facility] [address] [place], [place] [address] Jody Kayla Anion gap [Moles/Vol] 11.1 mmol/L Normal [facility] Comment on above: Performed By: #### C MP #### [facility] [address] [phone] Jody Kayla AST [Catalytic activity/Vol] 23 U/L Normal 14-36 [facility] Comment on above: Performed By: #### C MP #### [facility] [address] [phone] Jody Kayla Bilirubin [Mass/Vol] 0.4 mg/dL Normal 0.2-1.3 [facility] Comment on above: Performed By: #### C MP #### [facility] [address] [address] Jody Kayla Calcium [Mass/Vol] 9.0 mg/dL Normal 8.4-10.2 [facility] Comment on above: Performed By: #### C MP #### [facility] [address] [address] Jody Kayla Chloride [Moles/Vol] 109 mmol/L Critically high 98-107 [facility] Comment on above: Performed By: #### C MP #### [facility] [address] [address] Jody Kayla CO2 [Moles/Vol] 25.1 mmol/L Normal 22.0-30.0 [facility] Comment on above: Performed By: #### C MP #### [facility] [address] [address] Jody Kayla Creatinine [Mass/Vol] 1.08 mg/dL Critically high 0.52-1.04 [facility] Comment on above: Performed By: #### C MP #### [facility] [address] [address] Jody Kayla EGFR-AF BANGLADESHI 58 mL/min/1.73m2 Critically low >=60 [facility] Comment on above: Performed By: #### C MP #### [facility] [address] [phone] Jody Kayla EGFR-NON AF BANGLADESHI 48 mL/min/1.73m2 Critically low >=60 [facility] Comment on above: Performed By: #### C MP #### [facility] [address] [phone] Jody Kayla Globulin (S) [Mass/Vol] 3.0 g/dL Normal [facility] Comment on above: Performed By: #### C MP #### [facility] [address] [place], [place] [id number] Jody Kayla Glucose [Mass/Vol] 121 mg/dL Critically high 74-106 [facility] Comment on above: Performed By: #### C MP #### [facility] [address] [place], [place] [address] Jody Kayla Potassium [Moles/Vol] 3.2 mmol/L Critically low 3.4-5.0 [facility] Comment on above: Performed By: #### C MP #### [facility] [address] [place] [address] Jody Kayla Protein [Mass/Vol] 5.9 g/dL Critically low 6.1-8.2 [facility] Comment on above: Performed By: #### C MP #### [facility] [address] [place] [address] Jody Kayla Sodium [Moles/Vol] 142 mmol/L Normal 137-145 [facility] Comment on above: Performed By: #### C MP #### [facility] [address] [place], [place] [address] Jody Kayla Urea nitrogen [Mass/Vol] 19.0 mg/dL Critically high 7.0-17.0 [facility] Comment on above: Performed By: #### C MP #### [facility] [address] [place], [place] [address] Jody Kayla Urea nitrogen/Creatinine [Mass ratio] 17.6 mg/mg Normal [facility] Comment on above: Performed By: #### C MP #### [facility] [address] [place], [place] [phone] Jody Kayla UA (CLEAN/CATCH) MICROSCOPIC IF INDICATEon 11-17-2020 Bilirubin Ql (U) Negative Normal NEGATIVE [facility] Comment on above: Performed By: #### U MELY CABRERA #### [facility] [address] [place], [place] [id number] Jody Kayla Clarity (U) CLEAR Normal CLEAR [facility] Comment on above: Performed By: #### RADHA GRIMESRO #### [facility] [address] [place] [address] Jody Kayla Color (U) LT. YELLOW Normal YELLOW [facility] Comment on above: Performed By: #### RADHA GRIMESRO #### [facility] [address] [address] Jody Kayla Glucose Ql (U) Negative Normal NEGATIVE [facility] Comment on above: Performed By: #### RADHA GRIMESRO #### [facility] [address] [place] [address] Jody Kayla Hemoglobin Ql (U) TRACE-INTACT Abnormal NEGATIVE [facility] Comment on above: Performed By: #### RADHA GRIMESRO #### [facility] [address] [place] [address] Jody Kayla Ketones Ql (U) Negative Normal NEGATIVE [facility] Comment on above: Performed By: #### MELY GRIMES #### [facility] [address] [place] [address] Jody Kayla LEUKOCYTES LARGE Abnormal NEGATIVE [facility] Comment on above: Performed By: #### MELY GRIMES #### [facility] [address] [place] [address] Jody Kayla Nitrite Ql (U) Positive Abnormal NEGATIVE [facility] Comment on above: Performed By: #### MELY GRIMES #### [facility] [address] [place] [address] Jody Kayla pH (U) 5.5 [pH] Normal 5-9 [facility] Comment on above: Performed By: #### MELY GRIMES #### [facility] [address] [place] [address] Jody Kayla SPEC GRAVITY 1.020 Normal 1.005-<=1.025 [facility] Comment on above: Performed By: #### MELY GRIMES #### [facility] [address] [place] [address] Jody Kayla UA PROTEIN Negative Normal NEGATIVE/ TRACE [facility] Comment on above: Performed By: #### MELY GRIMES #### [facility] [address] [place] [address] Jody Kayla UR MICRO IND INDICATED Normal [facility] Comment on above: Performed By: #### MELY GRIMES #### [facility] [address] [place] [address] Jody Kayla Urobilinogen Qn (U) 0.2 {Rai'U}/dL Normal 0.2 - 1. 0 [facility] Comment on above: Performed By: #### MELY GRIMES #### [facility] [address] [place] [address] Jody Akyla URINE MICROSCOPIC ONLYon BACTERIA SMALL Abnormal NONE SEEN [facility] Comment on above: Performed By: #### MELY GRIMES #### [facility] [address] [place] [address] Jody Kayla Bacteria identified Cx Nom (U) INDICATED Normal [facility] Comment on above: Performed By: #### MELY GRIMES #### [facility] [address] [place] [address] Jody Kayla CAST NONE SEEN Normal NONE SEEN [facility] Comment on above: Performed By: #### MELY GRIMES #### [facility] [address] [place] [address] Jody Kayla Crystals LM Nom (Urine sed) NONE SEEN Normal NONE SEEN [facility] Comment on above: Performed By: #### MELY GRIMES #### [facility] [address] [place] [address] Jody Kayla Epithelial cells LM Ql (Urine sed) FEW Abnormal NONE SEEN /RARE [facility] Comment on above: Performed By: #### MELY GRIMES #### [facility] [address] [place], [place] [address] Jody Kayla MUCOUS NONE SEEN Normal NONE SEEN [facility] Comment on above: Performed By: #### MELY GRIMES #### [facility] [address] [place], [place] [address] Jody Kayla RBC 2-5 Abnormal 0-2 [facility] Comment on above: Performed By: #### MELY GRIMES #### [facility] [address] [place], [place] [address] Jody Kayla WBC 50-75 Abnormal NONE SEEN [facility] Comment on above: Performed By: #### MELY GRIMES #### [facility] [address] [place], [place] [address] Jody Kayla XR CHEST 1 Von 11-17-2020 XR CHEST 1 V EXAM: XR CHEST 1 V COMPARISON: 01/01/2020 chest x-ray CLINICAL INDICATION: Chest pain. FINDINGS: The cardiomediastinal silhouette is unchanged. Unchanged hazy appearance of the left lung base with obscuration of the left hemidiaphragm and left costophrenic angle compared to the prior from 01/01/2020. Otherwise the lungs appear clear. No large pleural effusion. No pneumothorax. No evidence of acute osseous abnormality. 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 IMPRESSION: 1. No acute findings or interval change compared to prior. 2. Unchanged hazy appearance of the left lung base with obscuration of the left hemidiaphragm and left costophrenic angle compared to the prior from 01/01/2020. Persistent left basilar airspace opacities and a persistent small left pleural effusion are a possibility, or could simply be a chronic appearance related to scarring. Electronically authenticated by: JENN SOOD Date: 2020-11-16 22:16 Normal [facility] CBC AUTO DIFFon 11-16-2020 BASO # 0.1 103/ul Normal 0.0-0.1 [facility] Comment on above: Performed By: #### MELY GRIMES #### [facility] [address] [place], [place] [address] Jodywily Garza Basophils/100 WBC (Bld) 0.7 % Normal 0.2-2.0 [facility] Comment on above: Performed By: #### MELY GRIMES #### [facility] [address] [place] [address] Jody Kayla EO # 0.4 103/ul Normal 0.0-0.7 [facility] Comment on above: Performed By: #### MELY GRIMES #### [facility] [address] [place] [address] Jody Kayla Eosinophils/100 WBC (Bld) 3.5 % Normal 0.9-7.0 [facility] Comment on above: Performed By: #### MELY GRIMES #### [facility] [address] [place] [address] Jody Kayla Erythrocyte distribution width (RBC) [Ratio] 13.5 % Normal 11.0-15.0 [facility] Comment on above: Performed By: #### MELY GRIMES #### [facility] [address] [place] [address] Jody Kayla Hematocrit (Bld) [Volume fraction] 38.6 % Normal 36.0-48.0 [facility] Comment on above: Performed By: #### MELY GRIMES #### [facility] [address] [place] [address] Jody Kayla Hemoglobin (Bld) [Mass/Vol] 12.4 g/dL Normal 12.0-16.0 [facility] Comment on above: Performed By: #### MELY GRIMES #### [facility] [address] [place] [address] Jody Kayla IG # 0.03 10e3/ul Normal 0.00-0.03 [facility] Comment on above: Performed By: #### MELY GRIMES #### [facility] [address] [place] [address] Jody Kayla IG % 0.3 % Normal 0.0-0.5 [facility] Comment on above: Performed By: #### MELY GRIMES #### [facility] [address] [place] [address] Jody Kayla LYMPH # 1.8 103/ul Normal 1.2-3.8 [facility] Comment on above: Performed By: #### MELY GRIMES #### [facility] [address] [place], [place] [id number] Jodywily Garza Lymphocytes/100 WBC (Bld) 17.4 % Critically low 20.5-60.0 [facility] Comment on above: Performed By: #### MELY GRIMES #### [facility] [address] [place], [place] [id number] Jody Kayla MANUAL DIFF REQ NO Normal [facility] Comment on above: Performed By: #### MELY GRIMES #### [facility] [address] [place], [place] [id number] Jody Kayla MCH (RBC) [Entitic mass] 29.2 pg Normal 26.7-34.0 [facility] Comment on above: Performed By: #### MELY GRIMES #### [facility] [address] [place] [address] Jodywily Vicken MCHC (RBC) [Mass/Vol] 32.1 g/dL Normal 29.9-35.2 [facility] Comment on above: Performed By: #### MELY GRIMES #### [facility] [address] [place], [place] [id number] Jodywily Garza MCV (RBC) [Entitic vol] 90.8 fL Normal 81.0-99.0 [facility] Comment on above: Performed By: #### MELY GRIMES #### [facility] [address] [place], [place] [address] Jody Kayla MONO # 0.4 103/ul Normal 0.3-0.8 [facility] Comment on above: Performed By: #### MELY GRIMES #### [facility] [address] [place], [place] [phone] Jody Kayla Monocytes/100 WBC (Bld) 4.0 % Normal 1.7-12.0 [facility] Comment on above: Performed By: #### RADHA GRIMESRO #### [facility] [address] [address] Jody Kayla NEUT # 7.9 103/ul Critically high 1.4-6.5 [facility] Comment on above: Performed By: #### MELY GRIMES #### [facility] [address] [id number] Jody Kayla Neutrophils/100 WBC (Bld) 74.1 % Normal 43.0-75.0 [facility] Comment on above: Performed By: #### MELY GRIMES #### [facility] [address] [id number] Jody Kayla Platelet mean volume (Bld) [Entitic vol] 11.4 fL Normal 9.5-13.5 [facility] Comment on above: Performed By: #### MELY GRIMES #### [facility] [address] [place] [address] Jody Kayla PLT 238 103/ul Normal 150-450 [facility] Comment on above: Performed By: #### RADHA GRIMESRO #### [facility] [address] [place], [place] [address] Jody Kayla RBC 4.25 106/ul Normal 4.20-5.40 [facility] Comment on above: Performed By: #### RADHA GRIMESRO #### [facility] [address] [id number] Jody Kayla WBC 10.6 103/ul Normal 4.0-11.0 [facility] Comment on above: Performed By: #### RADHA GRIMESRO #### [facility] [address] [place], [place] [phone] Jody Kayla LACTATE/LACTIC ACIDon 2020 Lactate [Moles/Vol] 0.9 mmol/L Normal 0.7-2.0 [facility] Comment on above: Performed By: #### C MP #### [facility] [address] [place], [place] [phone] Jody Garza PROF 14(COMP METB)on 021 Albumin [Mass/Vol] 3.9 g/dL Normal 3.5-5.0 [facility] Comment on above: Performed By: #### MELY GRIMES #### [facility] [address] [id number] Jody Kayla Albumin/Globulin [Mass ratio] 1.1 {ratio} Normal [facility] Comment on above: Performed By: #### MELY GRIMES #### [facility] [address] [address] Jody Kayla ALP [Catalytic activity/Vol] 73 U/L Normal 38-126 [facility] Comment on above: Performed By: #### MELY GRIMES #### [facility] [address] [address] Jody Kayla ALT [Catalytic activity/Vol] 22 U/L Normal 9-52 [facility] Comment on above: Performed By: #### MELY GRIMES #### [facility] [address] [address] Jody Kayla Anion gap [Moles/Vol] 18.6 mmol/L Normal [facility] Comment on above: Performed By: #### MELY GRIMES #### [facility] [address] [address] Jody Kayla AST [Catalytic activity/Vol] 31 U/L Normal 14-36 [facility] Comment on above: Performed By: #### MELY GRIMES #### [facility] [address] [address] Jody Kayla Bilirubin [Mass/Vol] 0.6 mg/dL Normal 0.2-1.3 [facility] Comment on above: Performed By: #### MELY GRIMES #### [facility] [address] [address] Jody Kayla Calcium [Mass/Vol] 10.5 mg/dL Critically high 8.4-10.2 [facility] Comment on above: Performed By: #### MELY GRIMES #### [facility] [address] [address] Jody Kayla Chloride [Moles/Vol] 101 mmol/L Normal 98-107 [facility] Comment on above: Performed By: #### MELY GRIMES #### [facility] [address] [address] Jody Kayla CO2 [Moles/Vol] 21.9 mmol/L Critically low 22.0-30.0 [facility] Comment on above: Performed By: #### MELY GRIMES #### [facility] [address] [place] [address] Jody Kayla Creatinine [Mass/Vol] 1.41 mg/dL Critically high 0.52-1.04 [facility] Comment on above: Performed By: #### MELY GRIMES #### [facility] [address] [place] [address] Jody Kayla EGFR-AF BANGLADESHI 43 mL/min/1.73m2 Critically low >=60 [facility] Comment on above: Performed By: #### MELY GRIMES #### [facility] [address] [place] [address] Jody Kayla EGFR-NON AF BANGLADESHI 35 mL/min/1.73m2 Critically low >=60 [facility] Comment on above: Performed By: #### MELY GRIMES #### [facility] [address] [place] [address] Jody Kayla Globulin (S) [Mass/Vol] 3.6 g/dL Normal [facility] Comment on above: Performed By: #### MELY GRIMES #### [facility] [address] [place] [address] Jody Kayla Glucose [Mass/Vol] 177 mg/dL Critically high 74-106 [facility] Comment on above: Performed By: #### MELY GRIMES #### [facility] [address] [place] [address] Jody Kayla Potassium [Moles/Vol] 2.5 mmol/L Critically low 3.4-5.0 [facility] Comment on above: Result Comment: test repeated critical value verified Performed By: #### MELY GRIMES #### [facility] [address] [place] [address] Jody Kayla Protein [Mass/Vol] 7.5 g/dL Normal 6.1-8.2 [facility] Comment on above: Performed By: #### MELY GRIMES #### [facility] [address] [place] [address] Jody Kayla Sodium [Moles/Vol] 137 mmol/L Normal 137-145 [facility] Comment on above: Performed By: #### MELY GRIMES #### [facility] [address] [place] [address] Jody Kayla Urea nitrogen [Mass/Vol] 23.0 mg/dL Critically high 7.0-17.0 [facility] Comment on above: Performed By: #### MELY GRIMES #### [facility] [address] [place] [address] Jody Kayla Urea nitrogen/Creatinine [Mass ratio] 16.3 mg/mg Normal [facility] Comment on above: Performed By: #### MELY GRIMES #### [facility] [address] [place] [address] Jody Garza Rapid Covid-19 PCR (CVDRPD)o n 11-16-2020 [facility] LDT Info SEE BELOW Normal [facility] Comment on above: Result Comment: This test is not yet approved or cleared by the [place] Food and Drug Administration (FDA) . This test was developed by [employer] [place]. The performance characteristics of this test were validated by [facility]. The results are not intended to be used as the sole means for clinical diagnosis or patient management decisions. [facility] is authorized under Clinical Laboratory Improvement Amendments (CLIA) to perform high-complexity testing. When diagnostic testing is negative, the possibility of a false negative should be considered in the context of a patients recent exposures and the presence of clinical signs and symptoms consistent with SARS-CoV-2. Performed By: #### U MELY CABRERA #### [facility] [address] [place], [place] [address] Jody Garza SARS-CoV-2 (COVID-19) RNA ERIKA+probe Ql (Unsp spec) Not detected Normal NOT DETECTED [facility] Comment on above: Result Comment: This test is not yet approved or cleared by the [place] Food and Drug Administration (FDA). This test was developed by [employer], [place]. The performance characteristics of this test were validated by [facility]. The results are not intended to be used as the sole means for clinical diagnosis or patient management decisions. [facility] is authorized under Clinical Laboratory Improvement Amendments (CLIA) to perform high-complexity testing. Performed By: #### U MELY CABRERA #### [facility] [address] [id number] Jody Garza Cult,Urineon 10-22-2020 Cult,Urine Specimen Description .URINE Special Requests NOT REPORTED Culture ESCHERICHIA COLI >[id number] CFU/ML THIS ORGANISM IS AN EXTENDED-SPECTRUM BETA-LACTAMASE NURSE SEXUAL ASSAULT AND RESISTANCE TO THERAPY WITH PENICILLINS, CEPHALOSPORINS AND AZTREONAM IS EXPECTED. THESE ORGANISMS GENERALLY REMAIN SUSCEPTIBLE TO CARBAPENEMS. CONSIDER ID CONSULTATION. Report Status FINAL 10/21/2020 SUSCEPTIBILITY Organism ESCHERICHIA COLI Method ROSALINDA Amikacin NOT REPORTED Ampicillin >=32 RESISTANT Ampicillin/Sulbactam NOT REPORTED Aztreonam 16 RESISTANT Cefazolin >=64 RESISTANT Cefazolin sensitivity results can be used to predict the effectiveness of oral cephalosporins (eg. Cephalexin) in uncomplicated Urinary Tract Infections due to E. coli, K. pneumoniae, and P. mirabilis Cefepime NOT REPORTED Ceftriaxone >=64 RESISTANT Ciprofloxacin >=4 RESISTANT Ertapenem NOT REPORTED ESBL POSITIVE Gentamicin <=1 SUSCEPTIBLE Meropenem <=0.25 SUSCEPTIBLE Nitrofurantoin <=16 SUSCEPTIBLE Tigecycline NOT REPORTED Tobramycin >=16 RESISTANT Trimethoprim/Sulfa >=320 RESISTANT Piperacillin/Tazobacta m <=[address] [facility] Comment on above: Performed By: #### U #### [address] [id number] Process Area Supervisor: Nik Mendosa MD [facility] [address] [place] [address] [place] [address] Process Area Supervisor: Alton Osborn MD Microscopic Urinalysison Amorphous, UA NOT REPORTED None [facility], [place] Bacteria, UA 3+ Abnormal None [place], [place] Casts UA NOT REPORTED /LPF [place], [place] Crystals, UA NOT REPORTED None /HPF [facility], [place] Epithelial Cells UA 0 TO 2 [place], [place] Interpretation and review of laboratory results Abnormal [place], [place] Mucus, UA NOT REPORTED None [place], [place] Other Observations UA NOT REPORTED NOT REQ. [place], [place] RBC (U) [#/Vol] 2 TO 5 [place], [place] Renal Epithelial, UA NOT REPORTED 0 /HPF [place], [place] Trichomonas, UA NOT REPORTED None [facility] [place] WBC, UA GREATER THAN 100 [place], [place] Yeast, UA NOT REPORTED None [facility] [place] - [place], [place] UA w/Reflex Cultureon 2020 Acetoacetic Acid,Ur Negative Normal NEG [facility] Comment on above: Performed By: #### U AX, UMICAO #### [facility] [address] [place] [address] [place] [address] Process Area Supervisor: Alton Osborn MD Bilirubin, SemiQt,Ur Negative Normal NEG [facility] Comment on above: Performed By: #### U AX, UMICAO #### [facility] [address] [place] [address] [place] [address] Process Area Supervisor: Alton Osborn MD Color (U) YELLOW Normal [facility] Comment on above: Performed By: #### U AX, UMICAO #### [facility] [address] [place] [address] [place] [address] Process Area Supervisor: Alton Osborn MD Glucose Ql (U) Negative Normal NEG [facility] Comment on above: Performed By: #### U AX, UMICAO #### [facility] [address] [place] [address] [address], [place] [id number] Process Area Supervisor: Alton Osborn MD Hemoglobin, Ur TRACE Abnormal NEG [facility] Comment on above: Performed By: #### U AX, UMICAO #### [facility] [address] [place] [address] Dr[place], [place] [id number] Process Area Supervisor: Alton Osborn MD Leukocyte esterase Test strip Ql (U) MODERATE Abnormal NEG [facility] Comment on above: Performed By: #### U AX, UMICAO #### [facility] [address] [place] [address] Dr[place], [place] [id number] Process Area Supervisor: Alton Osborn MD Nitrite,Ur Positive Abnormal NEG [facility] Comment on above: Performed By: #### U AX, UMICAO #### [facility] [address] [place] [address] Dr[address] [place], [place] [id number] Process Area Supervisor: Alton Osborn MD pH (U) 5.5 [pH] Normal 5.0-9.0 [facility] Comment on above: Performed By: #### U AX, UMICAO #### [address] [place], [place] [id number] Process Area Supervisor: Alton Osborn MD Protein Ql (U) Negative Normal NEG [facility] Comment on above: Performed By: #### U AX, UMICAO #### [facility] [address] [place] [address] Dr[place], [place] [id number] Process Area Supervisor: Alton Osborn MD Specific gravity (U) [Rel density] 1.025 High 1.010-1.020 [facility] Comment on above: Performed By: #### U AX, UMICAO #### [facility] [address] [place] [address] Dr[address] [place], [place] [id number] Process Area Supervisor: Alton Osborn MD Turbidity CLOUDY Abnormal CLEAR [facility] Comment on above: Performed By: #### U AX, UMICAO #### [facility] [address] [place] [address] Process Area Supervisor: Alton Osborn MD Urobilinogen,Ur Normal Normal NORM [facility] Comment on above: Performed By: #### U AX, UMICAO #### [facility] [address] [place] [address] Process Area Supervisor: Alton Osborn MD Comment NOT REPORTED Normal [facility] Comment on above: Performed By: #### U AX, UMICAO #### [facility] [address] [place] [address] Process Area Supervisor: Alton Osborn MD Urinalysis Reflex to Culture on 10-19-2020 Bilirubin Urine Negative NEGATIVE [facility] [place] Color, UA YELLOW YELLOW [place], [place] Glucose, Ur Negative NEGATIVE [facility], [place] Interpretation and review of laboratory results Abnormal [facility], [place] Ketones Ql (U) Negative NEGATIVE [facility], [place] Leukocyte esterase Test strip Ql (U) MODERATE Abnormal NEGATIVE [facility], [place] Nitrite, Urine Positive Abnormal NEGATIVE [facility], [place] pH, UA 5.5 [facility], [place] Protein (U) [Mass/Vol] Negative NEGATIVE [facility], [place] Specific [place], UA 1.025 High [facility], [place] Turbidity UA CLOUDY Abnormal CLEAR [facility], [place] Urinalysis Comments NOT REPORTED [facility], [place] Urine Hgb TRACE Abnormal NEGATIVE [facility], [place] Urobilinogen, Urine Normal Normal [facility], [place] Urinalysis,Microon 1 ----- Normal [facility] Comment on above: Performed By: #### U AX, UMICAO #### [facility] [address] [place] [address] Process Area Supervisor: Alton Osborn MD Bacteria LM.HPF (Urine sed) [#/Area] 3+ Abnormal NONE [facility] Comment on above: Performed By: #### U AX, UMICAO #### [facility] [address] [place] [address] [place] [id number] Process Area Supervisor: Alton Osborn MD Epithelial cells LM.HPF (Urine sed) [#/Area] 0 TO 2 Normal 0-25 [facility] Comment on above: Performed By: #### U AX, UMICAO #### [address] [place] [id number] Process Area Supervisor: Alton Osborn MD RBC (U) [#/Vol] 2 TO 5 Normal 0-2 [facility] Comment on above: Performed By: #### U AX, UMICAO #### [address] [place] [phone] Process Area Supervisor: Alton Osborn MD WBC (U) [#/Vol] GREATER THAN 100 Normal 0-5 [facility] Comment on above: Performed By: #### U AX, UMICAO #### [address] [place] [address] Process Area Supervisor: Alton Osborn MD Amorphous sediment LM Ql (Urine sed) NOT REPORTED Normal [facility] Comment on above: Performed By: #### U AX, UMICAO #### [address] [place] [phone] Process Area Supervisor: Alton Osborn MD Casts LM.LPF (Urine sed) [#/Area] NOT REPORTED Normal [facility] Comment on above: Performed By: #### U AX, UMICAO #### [address] [place] [address] Process Area Supervisor: Alton Osborn MD Crystals LM Nom (Urine sed) NOT REPORTED Normal [facility] Comment on above: Performed By: #### U AX, UMICAO #### [address] [place] [phone] Process Area Supervisor: Alton Osborn MD Epithelial, Renal NOT REPORTED Normal [address] [facility] Comment on above: Performed By: #### U AX, UMICAO #### [facility] [address] [place] [address] Process Area Supervisor: Alton Osborn MD Mucus Strands NOT REPORTED Normal NONE [facility] Comment on above: Performed By: #### U AX, UMICAO #### [facility] [address] [place] [address] Process Area Supervisor: Alton Osborn MD Other Observations NOT REPORTED Normal NREQ [facility] Comment on above: Performed By: #### U AX, UMICAO #### [facility] [address] [place] [id number] Process Area Supervisor: Alton Osborn MD Trichomonas NOT REPORTED Normal NONE [facility] Comment on above: Performed By: #### U AX, UMICAO #### [facility] [address] [place], [place] [phone] Process Area Supervisor: Alton Osborn MD Yeast LM Ql (Urine sed) NOT REPORTED Normal [facility] Comment on above: Performed By: #### U AX, UMICAO #### [facility] [address] [place], [place] [phone] Process Area Supervisor: Alton Osborn MD Microscopic Urinalysison Amorphous, UA NOT REPORTED None [facility] [place] Bacteria, UA NOT REPORTED None [facility] [place] Casts UA NOT REPORTED /LPF [facility] [place] Crystals, UA NOT REPORTED None /HPF [facility] [place] Epithelial Cells UA 0 TO 2 [facility] [place] Mucus, UA NOT REPORTED None [facility] [place] Other Observations UA NOT REPORTED NOT REQ. [facility] [place] RBC (U) [#/Vol] None [facility] [place] Renal Epithelial, UA NOT REPORTED 0 /HPF Me [facility] [place] Trichomonas, UA NOT REPORTED None [facility] [place] [place] WBC, UA 0 TO 2 [facility], [place] Yeast, UA NOT REPORTED None [facility] - [place] - [facility], [place] UA w/Reflex Cultureon 2019 Acetoacetic Acid,Ur Negative Normal [facility] Comment on above: Performed By: #### U AX, UMICAO #### [facility] [address] [place], [place] [phone] Process Area Supervisor: Alton Osborn MD Bilirubin, SemiQt,Ur Negative Normal [facility] Comment on above: Performed By: #### U AX, UMICAO #### [address] [place] [address] Process Area Supervisor: Alton Osborn MD Color (U) YELLOW Normal YEL [facility] Comment on above: Performed By: #### U AX, UMICAO #### [facility] [address] [place] [address] Dr[place], [place] [id number] Process Area Supervisor: Alton Osborn MD Glucose Ql (U) Negative Normal NEG [facility] Comment on above: Performed By: #### U AX, UMICAO #### [facility] [address] [place] [address] Dr[place], [place] [id number] Process Area Supervisor: Alton Osborn MD Hemoglobin, Ur Negative Normal NEG [facility] Comment on above: Performed By: #### U AX, UMICAO #### [facility] [address] [place], [place] [phone] Process Area Supervisor: Alton Osborn MD Leukocyte esterase Test strip Ql (U) Negative Normal [facility] Comment on above: Performed By: #### U AX, UMICAO #### [facility] [address] [place] [address] Process Area Supervisor: Alton Osborn MD Nitrite,Ur Negative Normal NEG [facility] Comment on above: Performed By: #### U AX, UMICAO #### [facility] [address] [place], [place] [phone] Process Area Supervisor: Alton Osborn MD pH (U) 5.5 [pH] Normal 5.0-9.0 [facility] Comment on above: Performed By: #### U AX, UMICAO #### [facility] [address] [place], [place] [phone] Process Area Supervisor: Alton Osborn MD Protein Ql (U) Negative Normal NEG [facility] Comment on above: Performed By: #### U AX, UMICAO #### [facility] [address] [place], [place] [id number] Process Area Supervisor: Alton Osborn MD Specific gravity (U) [Rel density] 1.025 High 1.010-1.020 [facility] Comment on above: Performed By: #### U AX, UMICAO #### [facility] [address] [place], [place] [phone] Process Area Supervisor: Alton Osborn MD Turbidity CLEAR Normal CLEAR [facility] Comment on above: Performed By: #### U AX, UMICAO #### [facility] [address] [place], [place] [phone] Process Area Supervisor: Alton Osborn MD Urobilinogen,Ur Normal Normal NORM [facility] Comment on above: Performed By: #### U AX, UMICAO #### [facility] [address] [place], [place] [phone] Process Area Supervisor: Alton Osborn MD Comment NOT REPORTED Normal [facility] Comment on above: Performed By: #### U AX, UMICAO #### [facility] [address] [place], [place] [phone] Process Area Supervisor: Alton Osborn MD Urinalysis Reflex to Culture on 10-03-2020 Bilirubin Urine Negative NEGATIVE [facility] [place] [place] Color, UA YELLOW YELLOW [place] Glucose, Ur Negative NEGATIVE [place] Interpretation and review of laboratory results Abnormal [place] Ketones Ql (U) Negative NEGATIVE [place], [place] Leukocyte esterase Test strip Ql (U) Negative NEGATIVE [place] Nitrite, Urine Negative NEGATIVE [place] pH, UA 5.5 [place] Protein (U) [Mass/Vol] Negative NEGATIVE [place] Specific [place], UA 1.025 [place], [place] Turbidity UA CLEAR CLEAR [place], [place] Urinalysis Comments NOT REPORTED [place] Urine Hgb Negative NEGATIVE [place] Urobilinogen, Urine Normal Normal [place] Urinalysis,Microon 0 ----- Normal [facility] Comment on above: Performed By: #### U AX, UMICAO #### [facility] [address] [place] [address] [place] [address] Process Area Supervisor: Alton Osborn MD Epithelial cells LM.HPF (Urine sed) [#/Area] 0 TO 2 Normal 0-25 [facility] Comment on above: Performed By: #### U AX, UMICAO #### [address] [place] [id number] Process Area Supervisor: Alton Osborn MD RBC (U) [#/Vol] None Normal 0-2 [facility] Comment on above: Performed By: #### U AX, UMICAO #### [facility] [address] [place] [address] [place] [id number] Process Area Supervisor: Alton Osborn MD WBC (U) [#/Vol] 0 TO 2 Normal 0-5 [facility] Comment on above: Performed By: #### U AX, UMICAO #### [address] [place] [id number] Process Area Supervisor: Alton Osborn MD Amorphous sediment LM Ql (Urine sed) NOT REPORTED Normal NONE [facility] Comment on above: Performed By: #### U AX, UMICAO #### [facility] [address] [place] [address] Process Area Supervisor: Alton Osborn MD Bacteria LM.HPF (Urine sed) [#/Area] NOT REPORTED Normal NONE [facility] Comment on above: Performed By: #### U AX, UMICAO #### [facility] [address] [place] [address] Process Area Supervisor: Alton Osborn MD Casts LM.LPF (Urine sed) [#/Area] NOT REPORTED Normal [facility] Comment on above: Performed By: #### U AX, UMICAO #### [address] [place] [phone] Process Area Supervisor: Alton Osborn MD Crystals LM Nom (Urine sed) NOT REPORTED Normal NONE [facility] Comment on above: Performed By: #### U AX, UMICAO #### [address] [place], [place] [phone] Process Area Supervisor: Alton Osborn MD Epithelial, Renal NOT REPORTED Normal 0 [facility] Comment on above: Performed By: #### U AX, UMICAO #### [address] [place], [place] [phone] Process Area Supervisor: Alton Osborn MD Mucus Strands NOT REPORTED Normal NONE [facility] Comment on above: Performed By: #### U AX, UMICAO #### [address] [place], [place] [phone] Process Area Supervisor: Alton Osborn MD Other Observations NOT REPORTED Normal NREQ [facility] Comment on above: Performed By: #### U AX, UMICAO #### [address] [place] [address] Process Area Supervisor: Alton Osborn MD Trichomonas NOT REPORTED Normal NONE [facility] Comment on above: Performed By: #### U AX, YANCYO #### [facility] [address] [place] [address] Process Area Supervisor: Alton Osborn MD Yeast LM Ql (Urine sed) NOT REPORTED Normal NONE [facility] Comment on above: Performed By: #### U AX, UMICAO #### [facility] [address] [place] [address] Process Area Supervisor: Alton Osborn MD Lipid Panelon 09-25-2020 Cholesterol [Mass/Vol] 153 mg/dL <200 [place] Comment on above: Cholesterol Guidelines: <200 Desirable 200-240 Borderline >240 Undesirable Cholesterol in HDL [Mass/Vol] 37 mg/dL Low >40 [place] Comment on above: HDL Guidelines: <40 Undesirable 40-59 Borderline >59 Desirable Cholesterol in LDL [Mass/Vol] 60 mg/dL 0 - 130 mg/dL [place] Comment on above: LDL Guidelines: <100 Desirable 100-129 Near to/above Desirable 130-159 Borderline >159 Undesirable Direct (measured) LDL and calculated LDL are not interchangeable tests. Cholesterol in VLDL [Mass/Vol] NOT REPORTED High 1 - 30 mg/dL [place] Cholesterol.total/Ch olesterol in HDL [Mass ratio] 4.1 {ratio} <5 [place] Interpretation and review of laboratory results Abnormal [place] Triglyceride [Mass/Vol] 282 mg/dL High <150 [place] Comment on above: Triglyceride Guidelines: <150 Desirable 150-199 Borderline 200-499 High >499 Very high Based on AHA Guidelines for fasting triglyceride, July 2012. Lipid Profileon 09-25-2020 Cholesterol [Mass/Vol] 153 mg/dL Normal <200 [facility] Comment on above: Result Comment: Cholesterol Guidelines: <200 Desirable 200-240 Borderline >240 Undesirable Performed By: #### L IPR #### [facility] [address] [place] [address] Process Area Supervisor: Nik Mendosa MD Cholesterol in HDL [Mass/Vol] 37 mg/dL Low >40 [facility] Comment on above: Result Comment: HDL Guidelines: <40 Undesirable 40-59 Borderline >59 Desirable Performed By: #### L IPR #### [address] [address] Process Area Supervisor: Nik Mendosa MD Cholesterol in LDL [Mass/Vol] 60 mg/dL Normal 0-130 [facility] Comment on above: Result Comment: LDL Guidelines: <100 Desirable 100-129 Near to/above Desirable 130-159 Borderline >159 Undesirable Direct (measured) LDL and calculated LDL are not interchangeable tests. Performed By: #### L IPR #### [address] [address] Process Area Supervisor: Nik Mendosa MD Cholesterol.total/Ch olesterol in HDL [Mass ratio] 4.1 {ratio} Normal <5 [facility] Comment on above: Performed By: #### L IPR #### [address] [address] Process Area Supervisor: Nik Mendosa MD Triglyceride [Mass/Vol] 282 mg/dL High <150 [facility] Comment on above: Result Comment: Triglyceride Guidelines: <150 Desirable 150-199 Borderline 200-499 High >499 Very high Based on AHA Guidelines for fasting triglyceride, July 2012. Performed By: #### L IPR #### [address] [address] Process Area Supervisor: Nik Mendosa MD Cholesterol in VLDL [Mass/Vol] NOT REPORTED Normal 1-30 [facility] Comment on above: Performed By: #### L IPR #### [address] [address] Process Area Supervisor: Nik Mendosa MD ALLIED HEALTHon 12-11-2018 [facility] HNO ID: [id number] Author: Erwin Mcdonald (Tech) Service: Radiology Author Type: Supervisor Filling And Packing Type: [facility] Filed: 12/11/2018 6:34 PM Note Text: Radiology Service Progress Note PATIENT NAME: Cate Ackerman DATE OF SERVICE: December 11, 2018 TIME: 6:15 PM PATIENT IDENTITY VERIFICATION COMPLETED USING TWO (2) METHODS: Patient confirmed name verbally and ID band matches.. PATIENT GENDER DATA: Female. status: : No status: NO. PATIENT RELEVANT IMPLANT DATA REVIEWED: Yes RADIOLOGY DEPARTMENT: MR; Exam(s) Completed: Head: Dementia volumes PERIPHERAL IV DATA: Not applicable SIGNED BY: Annel Ward RT(R)(MR) Erwin Mcdonald December 11, 2018 6:15 PM [facility] MRI 3D POST PROCESSINGon MRI 3D POST PROCESSING * * *Final Report* * * DATE OF EXAM: Dec 11 2018 6:36PM [facility] 0280 - MRI 3D POST PROCESSING / PROCEDURE REASON: Vascular dementia without behavioral disturbance * * * * Physician Interpretation * * * * EXAMINATION: MRI BRAIN WO IVCON, MRI 3D POST PROCESSING HISTORY: Cognitive impairment and memory loss. Vascular dementia. Evaluate for structural cause. TECHNIQUE: Specialized brain MRI without contrast, using the ADNI dementia protocol and 3-D post-processing at an independent workstation under physician supervision using the [employer] software. MQ: [id number] COMPARISON: None RESULT: QUALITATIVE: Acute Intracranial Process: None. 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 Moderate patchy and confluent hyperintensity is noted in the supratentorial white matter on FLAIR and T2 which is nonspecific but likely represents extensive chronic microvascular ischemia in view of the patient's chronologic age. Similar mild to moderate findings are noted in the elva.. Age related white matter changes ([facility]) rating: White matter lesions: 2 Basal ganglia lesions: 0 Prior parenchymal hemorrhage and location: No evidence of parenchymal microhemorrhages on SWI. Qualitative brain and hippocampal volume: There is moderate to severe cortical volume loss in view of the prominent enlargement of the cortical sulci. This is somewhat accentuated in the frontal and temporal regions. There is moderate to severe central white matter volume loss in view of the configuration and prominent enlargement of the ventricular system. There is moderate to severe hippocampal volume loss relative to the parenchymal volume loss elsewhere based on visual inspection Ventricles: Commensurate with volume loss. Brain Parenchymal Signal and Morphology: The brain parenchyma is otherwise within normal limits of signal and morphology. There is no evidence of an intracranial mass or extraaxial fluid collection. Other Significant Findings: None. QUANTITATIVE: Exam Quality: Adequate for volumetric analysis. Quantitative Data: Total Hippocampal Volume: Percentile for Similar Age: 22nd Asymmetry Index: -1.77 Lateral Ventricular Volume: Percentile for Similar Age: 96th Asymmetry Index: -6.39 Inferior Lateral Vent Volume: Percentile for similar age: 98th Asymmetry Index: -18.40 Total Brain Volume Percentile for Similar Age: 7th Concordance between qualitative and quantitative hippocampal volume assessment: Concordant. Change in brain volumes: No previous volumetric study for comparison Mean hippocampal volume loss among normal elderly: 0.7% per year, (-0.3 to 1.7; Hugo 2008; also Caio 2010). IMPRESSION: * No evidence of an acute intracranial process or intracranial mass. * Moderate to severe parenchymal volume loss by visual inspection and quantitative analysis. * Hippocampal volumes at the 22nd percentile when compared to age matched normal controls by quantitative analysis. * Moderate to severe white matter disease which is nonspecific but likely reflective of chronic microvascular ischemia. REFERENCES: White matter lesions 0 No lesions (including symmetrical, well-defined caps or bands) 1 Focal lesions 2 Beginning of confluence 3 Diffuse involvement of entire region Basal ganglia lesions 0 No lesions 1 1 focal lesion ( > 5 mm) 2 >1 focal lesion 3 Confluent lesions Caio Elliott, et al. The clinical use of structural MRI in Alzheimer disease. Nature Reviews Neurology 6;67 (2010). Hugo et al. Validation of a fully automated 3D hippocampal segmentation method using subjects with Alzheimer's disease mild cognitive impairment, and elderly controls. Neuroimage 43;59 (2008). Wahlund et al. A New Rating Scale for Age-Related White Matter Changes Applicable to MRI and CT. Stroke. 32:1318 (2001). * Asymmetry index defined as difference between left and right volumes divided by mean (%). Age-matched reference charts measure total hippocampal volume (% of intracranial volume). See results from the analysis charts for details. Entertainer & Comic: MANSOOR Transcribe Date/Time: Dec 11 2018 6:49P Dictated by : MYRON BOOTH MD This examination was interpreted and the report reviewed and electronically signed by: MYRON BOOTH MD on Dec 11 2018 6:59PM EST [id number] [facility] MRI BRAIN WO IVCONon 03-01-2 019 MRI BRAIN WO IVCON * * *Final Report* * * DATE OF EXAM: Dec 11 2018 6:36PM [facility] 0294 - MRI BRAIN WO IVCON / PROCEDURE REASON: Vascular dementia without behavioral disturbance * * * * Physician Interpretation * * * * EXAMINATION: MRI BRAIN WO IVCON, MRI 3D POST PROCESSING HISTORY: Cognitive impairment and memory loss. Vascular dementia. Evaluate for structural cause. TECHNIQUE: Specialized brain MRI without contrast, using the ADNI dementia protocol and 3-D post-processing at an independent workstation under physician supervision using the [employer] software. MQ: [id number] COMPARISON: None RESULT: QUALITATIVE: Acute Intracranial Process: None. 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 Moderate patchy and confluent hyperintensity is noted in the supratentorial white matter on FLAIR and T2 which is nonspecific but likely represents extensive chronic microvascular ischemia in view of the patient's chronologic age. Similar mild to moderate findings are noted in the elva.. Age related white matter changes ([facility]) rating: White matter lesions: 2 Basal ganglia lesions: 0 Prior parenchymal hemorrhage and location: No evidence of parenchymal microhemorrhages on SWI. Qualitative brain and hippocampal volume: There is moderate to severe cortical volume loss in view of the prominent enlargement of the cortical sulci. This is somewhat accentuated in the frontal and temporal regions. There is moderate to severe central white matter volume loss in view of the configuration and prominent enlargement of the ventricular system. There is moderate to severe hippocampal volume loss relative to the parenchymal volume loss elsewhere based on visual inspection Ventricles: Commensurate with volume loss. Brain Parenchymal Signal and Morphology: The brain parenchyma is otherwise within normal limits of signal and morphology. There is no evidence of an intracranial mass or extraaxial fluid collection. Other Significant Findings: None. QUANTITATIVE: Exam Quality: Adequate for volumetric analysis. Quantitative Data: Total Hippocampal Volume: Percentile for Similar Age: 22nd Asymmetry Index: -1.77 Lateral Ventricular Volume: Percentile for Similar Age: 96th Asymmetry Index: -6.39 Inferior Lateral Vent Volume: Percentile for similar age: 98th Asymmetry Index: -18.40 Total Brain Volume Percentile for Similar Age: 7th Concordance between qualitative and quantitative hippocampal volume assessment: Concordant. Change in brain volumes: No previous volumetric study for comparison Mean hippocampal volume loss among normal elderly: 0.7% per year, (-0.3 to 1.7; Hugo 2008; also Caio 2010). IMPRESSION: * No evidence of an acute intracranial process or intracranial mass. * Moderate to severe parenchymal volume loss by visual inspection and quantitative analysis. * Hippocampal volumes at the 22nd percentile when compared to age matched normal controls by quantitative analysis. * Moderate to severe white matter disease which is nonspecific but likely reflective of chronic microvascular ischemia. REFERENCES: White matter lesions 0 No lesions (including symmetrical, well-defined caps or bands) 1 Focal lesions 2 Beginning of confluence 3 Diffuse involvement of entire region Basal ganglia lesions 0 No lesions 1 1 focal lesion ( > 5 mm) 2 >1 focal lesion 3 Confluent lesions Caio Elliott, et al. The clinical use of structural MRI in Alzheimer disease. Nature Reviews Neurology 6;67 (2010). Hugo et al. Validation of a fully automated 3D hippocampal segmentation method using subjects with Alzheimer's disease mild cognitive impairment, and elderly controls. Neuroimage 43;59 (2008). Mayra et al. A New Rating Scale for Age-Related White Matter Changes Applicable to MRI and CT. Stroke. 32:1318 (2000). * Asymmetry index defined as difference between left and right volumes divided by mean (%). Age-matched reference charts measure total hippocampal volume (% of intracranial volume). See results from the analysis charts for details. Entertainer & Comic: MANSOOR Transcribe Date/Time: Dec 11 2018 6:49P Dictated by : MYRON BOOTH MD This examination was interpreted and the report reviewed and electronically signed by: MYRON BOOTH MD on Dec 11 2018 6:59PM EST [id number] Normal [facility] Vital Signs Date Time Vital Sign Value Performing Clinician Facility 05-11-2025 22:17-0400 Body mass index (BMI) [Ratio] 27.92 kg/m2 [employer] DO [facility] 05-11-2025 22:17-040 Body temperature 98.01 [degF] Antonio Plunify Work Phone: [facility] 05-11-2025 22:17-0400 Body weight 71.49 kg Antoniodatango Work Phone: [facility] 05-11-2025 22:17-0400 Diastolic blood pressure 80 mm[Hg] Antonio Furlong DO Work Phone: [facility] 05-11-2025 22:17-0400 Heart rate 73 /min Antonio Furlong DO Work Phone: [facility] [employer] [facility] 05-11-2025 22:17-0400 Respiratory rate 16 /min Antonio Furlong DO Work Phone: [facility] 05-11-2025 22:17-0400 SaO2% (BldA) [Mass fraction] 96 % Antonoi Furlong DO Work Phone: [facility] 05-11-2025 22:17-0400 Systolic blood pressure 143 mm[Hg] Antonio Furlong DO Work Phone: [facility] 03-30-2025 16:26-0400 Body mass index (BMI) [Ratio] 28.71 kg/m2 Antonio Furlong DO Work Phone: [facility] 03-30-2025 16:26-0400 Body temperature 97.59 [degF] Antonio Furlong DO Work Phone: [facility] 03-30-2025 16:26-0400 Body weight 73.53 kg Antonio Furlong DO Work Phone: [facility] 03-30-2025 16:26-0400 Diastolic blood pressure 69 mm[Hg] Antonio Furlong DO Work Phone: [facility] [employer] [facility] 03-30-2025 16:26-0400 Heart rate 68 /min Antonio Furlong DO Work Phone: [facility] 03-30-2025 16:26-0400 Respiratory rate 16 /min Antonio Furlong DO Work Phone: [facility] 03-30-2025 16:26-0400 SaO2% (BldA) [Mass fraction] 97 % Antonio Furlong DO Work Phone: [facility] 03-30-2025 16:26-0400 Systolic blood pressure 142 mm[Hg] Antonio Furlong DO Work Phone: [facility] 02-16-2025 10:13-0400 Body temperature 97.39 [degF] Antonio Furlong DO Work Phone: [facility] 02-16-2025 10:13-0400 Diastolic blood pressure 67 mm[Hg] Antonio Furlong DO Work Phone: [facility] 02-16-2025 10:13-0400 Heart rate 72 /min Anotnio Furlong DO Work Phone: [facility] 02-16-2025 10:13-0400 Respiratory rate 16 /min Antonio Furlong DO Work Phone: [facility] 02-16-2025 10:13-0400 Systolic blood pressure 133 mm[Hg] Antonio Furlong DO Work Phone: [facility] 02-04-2025 16:16-0400 Body mass index (BMI) [Ratio] 28.38 kg/m2 Antonio Furlong DO Work Phone: [facility] 02-04-2025 16:16-0400 Body temperature 98.01 [degF] Antonio Furlong DO Work Phone: [facility] 02-04-2025 16:16-0400 Body weight 72.67 kg Antonio Furlong DO Work Phone: [facility] 02-04-2025 16:16-0400 Diastolic blood pressure 70 mm[Hg] Antonio Furlong DO Work Phone: [facility] 02-04-2025 16:16-0400 Heart rate 74 /min Antonio Furlong DO Work Phone: [facility] 02-04-2025 16:16-0400 Respiratory rate 18 /min Antonio Furlong DO Work Phone: [facility] [employer] [facility] 02-04-2025 16:16-0400 Systolic blood pressure 120 mm[Hg] Antonio Furlong DO Work Phone: [facility] 01-09-2025 14:51-0400 Body mass index (BMI) [Ratio] 28.66 kg/m2 Antonio Furlong DO Work Phone: [facility] 01-09-2025 14:51-0400 Body temperature 98.91 [degF] Antonio Furlong DO Work Phone: [facility] [employer] [facility] 01-09-2025 14:51-0400 Body weight 73.39 kg Antonio Furlong DO Work Phone: [facility] 01-09-2025 14:51-0400 Heart rate 95 /min Antonio Furlong DO Work Phone: [facility] 01-05-2025 14:53-0400 Diastolic blood pressure 78 mm[Hg] Antonio Furlong DO Work Phone: [facility] 01-05-2025 14:53-0400 Systolic blood pressure 142 mm[Hg] Antonio Furlong DO Work Phone: [facility] 12-03-2024 15:04-0500 Body temperature 98.01 [degF] Antonio Furlong DO Work Phone: [facility] 12-03-2024 15:04-0500 Diastolic blood pressure 68 mm[Hg] Antonio Furlong DO Work Phone: [facility] 12-03-2024 15:04-0500 Systolic blood pressure 132 mm[Hg] Antonio Furlong DO Work Phone: [facility] 11-26-2024 14:25-0500 Body mass index (BMI) [Ratio] 28.48 kg/m2 Antonio Furlong DO Work Phone: [facility] [employer] [facility] 11-26-2024 14:25-0500 Body weight 72.94 kg Antonio Furlong DO Work Phone: [facility] [employer] 11-26-2024 14:25-0500 Diastolic blood pressure 60 mm[Hg] Antonio Furlong DO Work Phone: [facility] [employer] 11-26-2024 14:25-0500 Heart rate 81 /min Antonio Furlong DO Work Phone: [facility] [employer] [facility] 11-26-2024 14:25-0500 SaO2% (BldA) [Mass fraction] 95 % Antonio Furlong DO Work Phone: [facility] [employer] 11-26-2024 14:25-0500 Systolic blood pressure 131 mm[Hg] Antonio Furlong DO Work Phone: [facility] [employer] [facility] 09-15-2024 17:01-0500 Body mass index (BMI) [Ratio] 28.47 kg/m2 [facility] 09-15-[facility]24 17:01-0500 Body temperature 97.5 [degF] Antonio Furlong DO Work Phone: [facility] [employer] 09-15-2024 17:01-0500 Body weight 72.89 kg Antonio Furlong DO Work Phone: [facility] [employer] [facility] 09-15-2024 17:01-0500 Diastolic blood pressure 73 mm[Hg] Antonio Furlong DO Work Phone: [facility] [employer] 09-15-2024 17:01-0500 Heart rate 68 /min Antonio Furlong DO Work Phone: [facility] [employer] [facility] 09-15-2024 17:01-0500 Respiratory rate 16 /min Antonio Furlong DO Work Phone: [facility] [employer] [facility] 09-15-2024 17:01-0500 SaO2% (BldA) [Mass fraction] 96 % [facility]angel [facility] 09-15-2024 17:01-0500 Systolic blood pressure 124 mm[Hg] Antonio Rangel DO Work Phone: [facility] [employer] [facility] Encounters Encounter Date Encounter Type Care Provider Facility Start: 05-11-2025 End: 05-15-2025 Continuing Care Antonio Rangel DO Work Phone: [facility] Comment on above: Vascular dementia wi th behavior disturbance ([facility]) (Primary Dx); Lumbar spondylosis; Schizoaffective disorder, unspecified type ([facility]) Start: 03-30-2025 End: 03-30-2025 ambulatory Antonio Rangel DO Work Phone: [facility] Comment on above: Vascular dementia wi th behavior disturbance ([facility]) (Primary Dx); Acute right-sided low back pain without sciatica; Dysuria; Type 2 diabetes mellitus with stage 3a chronic kidney disease, without long-term current use of insulin ([facility]) Start: 03-29-2025 End: 03-29-2025 Telephone encounter Shikha Cespedes [facility] Call Dar toscano Comment on above: bruise Start: 02-16-2025 End: 03-07-2025 ambulatory Antonio Rangel DO Work Phone: [facility] Comment on above: Urinary tract infect ion without hematuria, site unspecified (Primary Dx); Lumbar spondylosis; Essential hypertension Start: 02-04-2025 End: 02-11-2025 ambulatory Antonio Rangel DO Work Phone: [facility] Comment on above: Vascular dementia wi th behavior disturbance ([facility]) (Primary Dx); 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 ([facility]) Start: 01-05-2025 End: 01-09-2025 ambulatory Antonio Rangel DO Work Phone: [facility] Comment on above: Essential hypertensi on (Primary Dx); 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 ([facility]); Hypothyroidism, unspecified type; Left hip pain; Vascular dementia with behavior disturbance ([facility]); Other abnormalities of gait and mobility; Anemia, unspecified type Start: 12-03-2024 End: 12-03-2024 ambulatory Antonio Noman Randlebassembaylee DO Work Phone: [facility] Comment on above: Acute cystitis with hematuria (Primary Dx); Acute vaginitis; External nasal lesion Start: 11-27-2024 End: 11-27-2024 ambulatory Antonio Raziabassembaylee [facility] Work Phone: Start: 11-27-2024 End: 11-27-2024 Departed Referred Antonio Rangel DO Work Phone: [facility] Start: 11-26-2024 End: 12-05-2024 ambulatory Antonio Rangel DO Work Phone: [facility] Comment on above: Vascular dementia wi th behavior disturbance ([facility]) (Primary Dx); Left hip pain; Pedal edema; Other abnormalities of gait and mobility Start: 09-15-2024 End: 10-07-2024 ambulatory Antonio Rangel DO Work Phone: [facility] Comment on above: Type 2 diabetes magdaleno itus with stage 3b chronic kidney disease and hypertension ([facility]) (Primary Dx); Pedal edema Start: 04-03-2023 ambulatory Uzma Smith [facility] Comment on above: [facility] ([facility] ) Start: 05-08-2021 End: 05-09-2021 ambulatory FREDO STONER Facility:[facility] Start: 04-19-2021 End: 04-19-[address] NILA MACHADO Facility:[facility] Start: 12-06-2020 End: 12-07-[address] ANTONIO RANGEL Facility:[facility] Start: 11-17-2020 End: 11-18-[address] MARCO ANTONIO VAZQUEZ Facility:[facility] Start: 10-19-2020 End: 10-20-2020 Patient encounter procedure [facility] Start: 10-19-2020 End: 10-19-2020 Subsequent hospital visit by physician Tracy [facility] Start: 10-03-2020 End: 10-04-2020 Patient encounter procedure [facility] Start: 10-03-2020 End: 10-03-2020 Subsequent hospital visit by physician Tracy [facility] Start: 09-25-2020 End: 09-26-2020 Patient encounter procedure [facility] Start: 09-25-2020 End: 09-25-2020 Subsequent hospital visit by physician Tracy [facility] Start: 12-11-2018 End: 12-12-2018 Patient encounter procedure [facility] Procedures Date Procedure Procedure Detail Performing Clinician Start: 10-19-2020 Urinalysis microscop ic only Kayla Marc Work Phone: Start: 10-19-2020 Urnls dip stick/tabl et rgnt auto w/o microscopy Kayla Sow [place] Work Phone: Start: 10-03-2020 Urinalysis microscop ic only Michael Sow Raissa Work Phone: Start: 10-03-2020 Urnls dip stick/tabl et rgnt auto w/o microscopy Michael Sow [place] Work Phone: Start: 09-25-2020 Lipid panel IRFAN AHME D Start: 09-25-2020 Lipid panel Irfan Ahme d Work Phone: Plan of Treatment Date Care Activity Detail Author Start: 06-13-2025 Influenza vaccination Influenza Vacc ine [facility] Start: 03-09-2025 Tobacco Screening Tobacco Screening [facility] Start: 11-27-2024 Bacteria identified in Urine by Culture Urine Culture [facility] Start: 11-27-2024 Urine culture [facility] Start: 06-13-2024 COVID-19 Vaccine () COVID-19 Vaccine () [facility] Start: 06-13-2024 Influenza vaccination Influenza Vacc ine [facility] Start: 06-13-2023 Influenza vaccination INFLUENZ A (Season Ended) [facility] Start: 10-13-2022 ADVANCE DIRECTIVE DISCUSSION ADVANCE DIRECTIVE DISCUSSION [facility] Start: 09-01-2021 Hepatitis B surface antibody level LDL CHOLESTEROL [facility] Start: 05-13-2021 DTaP,Tdap and Td Vac cines (2 - Td or Tdap) DTaP,Tdap and Td Vaccines (2 - Td or Tdap) [facility] Start: 05-13-2021 Urine microalbumin profile DTAP,TDAP,TD (2 - Td or Tdap) [facility] Start: 03-01-2021 Hemoglobin A1c/Hemoglobin.total in Blood HBA1C [facility] Start: 06-28-2020 Hepatitis B screening URINE ALBUMIN:CREATININE RATIO [facility] Start: 06-13-2020 Influenza vaccination [facility] (# [facility] Start: 07-08-2011 Administration of varicella zoster vaccine Zoster (Shingles) Vaccine (1 of 2) [facility] Start: 07-08-2011 SHINGRIX VACCINE (2 of 3) LEGGETT GRIX VACCINE (2 of 3) [facility] Start: 2000 Fall Risk Screening Fall Risk Screen ing [facility] Start: 1947 Depression Screening Depression Scre ening [facility] Start: 1945 3 comp foot exam completed DIABETIC FOOT EXAM [facility] Start: 1945 Hepatitis C antibody , confirmatory test DILATED RETINAL EXAM [facility] Start: 03-17-1936 COVID-19 VACCINE (#1) COVID-19 VACCI NE (#1) [facility] End: 10-19-2020 Culture, Urine Culture, Urine Microbiology Routine Once for 1 Occurrences starting 10/19/2020 until 10/19/2020 [facility] Comment on above: Once for 1 Occurrenc es starting 10/19/2020 until 10/19/2020 Culture, Urine Culture, Urine Microbiology Routine 10/19/2020 11:15 AM EST [facility] Immunizations Immunization Date Immunization Notes Care Provider Deepa hernandez 08-27-2023 influenza, injectabl e, quadrivalent, preservative free Antonio Razialong DO Work Phone: [facility] 08-27-2023 influenza virus vacc ine, unspecified formulation Antonionavid Randlelong DO Work Phone: [facility] 01-26-2021 COVID-19, mRNA, LNP- S, PF, 100mcg/0.5mL Dose Antonionavid Randlelong DO Work Phone: [facility] 06-30-2019 influenza, high dose seasonal, preservative-free Uzma Smith [facility] 07-15-2018 influenza, high dose seasonal, preservative-free Uzma Smith [facility] 10-07-2017 influenza, high dose seasonal, preservative-free Uzma Smith [facility] 08-23-2016 influenza, high dose seasonal, preservative-[facility]: 08-23-2015 influenza, high dose seasonal, preservative-free Uzma Smith [facility] Work Phone: 08-23-2015 pneumococcal conjuga te vaccine, 13 valent Uzma [facility] Work Phone: 09-01-2014 pneumococcal polysaccharide vaccine, 23 valent [facility] 07-08-2014 influenza, seasonal, injectable [facility] Work Phone: 06-26-2011 influenza virus vacc ine, unspecified formulation Uzmadez Smith [facility] 05-13-2011 tetanus toxoid, redu meagan diphtheria toxoid, and acellular pertussis vaccine, adsorbed Uzma Smith [facility] 05-13-2011 zoster vaccine, live Kellie Smith [facility] 05-13-2011 zoster vaccine, unspecified formulation Antonio Hinkleng DO Work Phone: [facility] 09-28-2009 novel influenza-H1N1 -09, preservative-free, injectable Uzma [facility] Payers Date Payer Category Payer Self-pay 2022 Medicaid [place] [id number] 2021 Commercial Indemnity MEDICAL MUT UAL [id number] 2019 Unknown MMO MMO MEDICARE SUPPLEMENT [id number] 2019-Present [phone] [address] [place] [address] Indemnity [id number] 2000 Medicare [id number] 1959 Medicaid [id number] 1959 Medicare [id number] 1959 Unknown [id number] 1935 Unknown [id number] 1935 Unknown [id number] 73 1935 Unknown [id number] 73 1935 Unknown [id number] 93 1935 Unknown [id number] 93 1935 Unknown [id number] 93 1935 Unknown [id number] 93 Medicare Medicare Outpatient [id number] 6A [id number] Unknown [id number] 31 Social History Date Type Detail Facility Tobacco smoking stat us MIIS Unknown if ever smoked [place], [place] Start: 1935 Sex Assigned At Not on file M [place] Start: 05-13-2011 End: 08-26-2023 Tobacco smoking status NHIS Never smoked tobacco [facility] Work Phone: Start: 05-13-2011 End: 08-26-2023 Tobacco use and exposure Smokeless tobacco non-user [facility] Work Phone: Start: 05-27-2022 Alcohol intake Current drinke r of alcohol (finding) [facility] Start: 09-04-2020 History SDOH Social Connections Phone 5 [facility] Start: 09-04-2020 History SDOH Social Connections Hoahaoism 1 [facility] Start: 09-04-2020 History SDOH Social Connections Membership 2 [facility] Start: 09-04-2020 History SDOH Social Connections Living 3 [facility] Start: 11-24-2018 Alcohol Comment rare now; in p ast social [facility] Start: 1935 Sex Assigned At Female [facility] Start: 03-09-2024 Alcoholic beverage intake Life time non-drinker (finding) [facility] Start: 10-29-2020 End: 08-27-2023 History of Social function [facility] Start: 10-29-2020 End: 08-27-2023 Alcohol Use Disorder Identification Test - Consumption [AUDIT-C] [facility] How often to you hav e a drink containing alcohol? Never [facility] How many standard dr inks containing alcohol do you have on a typical day? Patient does not drink [facility] Start: 05-18-2015 End: 11-28-2024 Sex Female (finding) [facility] Medical Equipment Procedure Code Equipment Code Equipment Origin al Text Equipment Identifier Dates 0---Cement Simpl ex P Speedset - [id number] Start: 04-29-2013 [id number] 1306-Tibial Bearing [id number]-Cs [id number] Start: 04-29-2013 Humeral Stem [id number] Start: 03-13-2018 0---Comp Fem 3 R t Kn Cr Gallo Trthln - [id number] Start: 04-29-2013 0---Comp Pat 10m m 32mm Asym Trthln - [id number] Start: 04-29-2013 Head Rsp 32mm -4 mm Offset Glenoid Retain Screw - [id number] Start: 03-13-2018 0---Baseplt Tib Trthln 4 Prim - [id number] Start: 04-29-2013 Baseplate Rsp P2 30mm Glenoid Sterile - [id number] Start: 03-13-2018 Screw Rsp 5mm 14 mm Bone Lock Glenoid Baseplate Shoulder - [id number] Start: 03-13-2018 Start: 01-01-2018 Comment on above: Use once daily E11.9 1 Device once daily. Goals Date Patient Goal Desired Activity /State Personal health goal Comment on above: Formatting of this n ote might be different from the original. Evaluation of progress towards goal: plan return to [facility] Clinical Notes 03-11-2018 to 05-11-2025 Antonio Rangel, DO - 05/11/2025 11:59 PM EDTAntonio Rangel, DO - 03/30/2025 4:26 PM EDTTelephone Encounter - Shikha Cespedes - 03/29/2025 5:25 AM EDTAntonio Rangel, DO - 02/16/2025 11:59 PM EDT Note Date & Type Note Facility 05-11-2025 History of Presen t illness Narrative Patient Name: Cate Ackerman Date of : 1935 Date of Service: 05/11/2025 Facility: [facility] Type of Visit: Subsequent Visit Subjective Cate Ackerman is a 89 y.o. female seen today at half-way facility for regular monthly visit. No new medical problems reported by staff or patient. She hasn't had any itchiness lately. Allergies: Adhesive, Lactose, and Penicillin Code Status: [facility] BP 143/80 Pulse 73 Temp 36.7 C (98 F) Resp 16 Wt 71.5 kg (157 lb 9.6 oz) SpO2 96% BMI 27.92 kg/m Physical Exam Vitals reviewed. Constitutional: General: She [...] Plan 1. Vascular dementia with behavior disturbance ([facility]) 2. Lumbar spondylosis 3. Schizoaffective disorder, unspecified type ([facility]) Medically stable. Continue current regimen. I told her that her guardian wants her to stay here and she was upset with me because I am not getting her out of here. I tried to explain again that I don't facilitate transfers to other facilities. The does that. All medications reviewed and are medically necessary. ELECTRONICALLY SIGNED BY: Antonio Rangel DO documented in this encounter [facility] 03-30-2025 History of Presen t illness Narrative Patient Name: Cate Ackerman Date of : 1935 Date of Service: 03/30/2025 Facility: [facility] Type of Visit: Acute Visit Subjective Cate Ackerman is a 89 y.o. female seen today at half-way facility for problem visit. Cate is having right sided low back pain. She feels it is her kidneys and an infection. She was given diflucan and she thinks it helped some but she still has burning with urination. Allergies: Adhesive, Lactose, and Penicillin Code Status: [facility] BP 142/69 Pulse 68 Temp 36.4 C (97.6 F) Resp 16 Wt 73.5 kg (162 lb 1.6 oz) SpO2 97% BMI 28.71 kg/m Physical Exam Vitals reviewed. Constitutional: General: She [...] her POA and that she is still here Summary / Assessment / Plan 1. Vascular dementia with behavior disturbance ([facility]) 2. Acute right-sided low back pain without sciatica 3. Dysuria 4. Type 2 diabetes mellitus with stage 3a chronic kidney disease, without long-term current use of insulin ([facility] I'm going to add biofreeze twice a day to her low back pain muscle spasms. We are going to stop her Farxiga case that is contributing to her dysuria. Check BMP and A1c to see how her diabetes and kidney tests are doing. May need a different diabetic medication. Will repeat diflucan 150mg x 1 dose since she thinks it did help some. She may need to see a specialist. Continue other orders as directed. All medications reviewed and are medically necessary. ELECTRONICALLY SIGNED BY: Antonio Rangel DO documented in this encounter [facility] 03-29-2025 Miscellaneous Notes Contract: [address] [facility] bruise to left knee. It is painful. She doesn't know how she got it. She will call back after office opens. documented in this encounter [facility] 03-29-2025 Telephone encounter Note Contract: [address] [facility] [place] [facility] bruise to left knee. It is painful. She doesn't know how she got it. She will call back after office opens. [facility] 02-16-2025 History of Presen t illness Narrative Patient Name: Cate Ackerman Date of : 1935 Date of Service: 02/16/2025 Facility: [facility] Type of Visit: Acute Visit Subjective Cate Ackerman is a 89 y.o. female seen today at half-way facility for problem visit. Cate complained of burning with urination and back pain. She had an abnormal urine and her C&S came back with >100K colonies of E. coli. She denies frequency, urgency, fever or nausea and vomiting. No other new concerns Allergies: Adhesive, Lactose, and Penicillin Code Status: [facility] BP 133/67 Pulse 72 Temp 36.3 C (97.4 F) Resp 16 Physical Exam Vitals reviewed. Exam conducted with a worship leader present (Jim tSiles MS3). Constitutional: General: She is not in acute distress. Appearance: She is not ill-appearing. Comments: She is ambulatory in the unit HENT: Head: Normocephalic. Cardiovascular: Rate and Rhythm: Normal rate and regular rhythm. Pulses: Normal pulses. Heart sounds: Normal heart sounds. No murmur heard. Pulmonary: Effort: Pulmonary effort is normal. No respiratory distress. Breath sounds: Normal breath sounds. No wheezing, rhonchi or rales. Abdominal: General: Bowel sounds are normal. Palpations: Abdomen is soft. Tenderness: There is abdominal tenderness (mild suprapubic). There is no right CVA tenderness or left CVA tenderness. Musculoskeletal: Comments: Negative Guille's test Neurological: Mental Status: She is alert. Gait: Gait abnormal (Slow, shuffling gait with a cane). Psychiatric: Attention and Perception: Attention normal. Mood and Affect: Mood normal. Speech: Speech normal. Behavior: Behavior is cooperative. Cognition and Memory: Cognition is impaired. Memory is impaired. She exhibits impaired recent memory and impaired remote memory. Summary / Assessment / Plan 1. Urinary tract infection without hematuria, site unspecified 2. Lumbar spondylosis 3. Essential hypertension Rx:Bactrim DS 1 po BID x 5days. Continue other orders as before. All other medications reviewed and are medically necessary. ELECTRONICALLY SIGNED BY: Antonio Rangel, DO documented in this encounter [facility] 02-04-2025 History of Presen t illness Narrative Patient Name: Cate Ackerman Date of : 1935 Date of Service: 02/04/2025 [place] [facility] [place] of Visit: Subsequent Visit Subjective Cate Ackerman is a 89 y.o. female seen today at half-way facility for monthly visit. No new medical problems reported by staff or patient. She of course wants out but her POA said no. She is not happy about that and thinks I have the authority to get her out but I told her I didn't but she doesn't believe me. Allergies: Adhesive, Lactose, and Penicillin Code Status: [facility] BP 120/70 Pulse 74 Temp 36.7 C (98 F) Resp 18 Wt 72.7 kg (160 lb 3.2 oz) BMI 28.38 kg/m Physical Exam Vitals reviewed. Constitutional: General: She is not in acute distress. Appearance: She is not ill-appearing. Comments: She is ambulatory in the unit HENT: Head: Normocephalic. Cardiovascular: Rate and Rhythm: Normal rate and regular rhythm. Pulses: Normal pulses. Heart sounds: Normal heart sounds. No murmur heard. Pulmonary: Effort: Pulmonary effort is normal. No respiratory distress. Breath sounds: Normal breath sounds. No wheezing, rhonchi or rales. Musculoskeletal: Left hip: Crepitus present. No deformity or lacerations. Decreased range of motion. Normal strength. Comments: Neurological: Mental Status: She is alert. Gait: Gait abnormal (Slow, shuffling gait with a cane). Psychiatric: Attention and Perception: Attention normal. Mood and Affect: Affect is angry. Speech: Speech normal. Behavior: Behavior is agitated. Thought Content: Thought content is delusional. Cognition and Memory: Cognition is impaired. Memory is impaired. She exhibits impaired recent memory and impaired remote memory. Assessment/Plan Summary / Assessment / Plan 1. Vascular dementia with behavior disturbance (CMS-HCC) 2. 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 She has poor insight into her situation. Continue current regimen. All medications reviewed and are medically necessary. ELECTRONICALLY SIGNED BY: Antonio Rangel DO documented in this encounter [facility] 01-05-2025 History of Presen t illness Narrative Patient Name: Cate Ackerman Date of : 1935 Date of Service: 01/05/2025 Facility: [facility] [place] Type of Visit: Subsequent Visit Subjective Cate Ackerman is a 89 y.o. female seen today at half-way facility for monthly and problem visit. Nurses report abnormal labs for my review. Patient is still having left hip pain. Previous x-ray did not show fracture or dislocation but no mention of arthritis. US did not show a DVT. Allergies: Adhesive, Lactose, and Penicillin Code Status: [facility] BP 142/78 Pulse 95 Temp 37.2 C (98.9 F) Wt 73.4 kg (161 lb 12.8 oz) BMI 28.66 kg/m Physical Exam Vitals reviewed. Exam conducted with a worship leader present (Adarsh Lawson MS3). Constitutional: General: She is not in acute distress. Appearance: She is not ill-appearing. Comments: She is in bed watching TV HENT: Head: Normocephalic. Cardiovascular: Rate and Rhythm: Normal rate and regular rhythm. Pulses: Normal pulses. Heart sounds: Normal heart sounds. No murmur heard. Pulmonary: Effort: Pulmonary effort is normal. No respiratory distress. Breath sounds: Normal breath sounds. No wheezing, rhonchi or rales. Abdominal: General: Bowel sounds are normal. Palpations: Abdomen is soft. Tenderness: There is no abdominal tenderness. Musculoskeletal: Cervical back: Neck supple. Left hip: Crepitus present. No deformity or lacerations. Decreased range of motion. Normal strength. Comments: Neurological: Mental Status: She is alert. Gait: Gait abnormal (Slow, shuffling gait with a cane). Psychiatric: Attention and Perception: Attention normal. Speech: Speech normal. Behavior: Behavior normal. Behavior is cooperative. Cognition and Memory: Cognition is impaired. Memory is impaired. She exhibits impaired recent memory and impaired remote memory. Labs: A1c 8.9%-H TSH 0.087-L Trig's 175 H/H 11.2/34.5-L LDL 65 at goal Assessment/Plan Encounter Diagnoses Name Primary? Essential hypertension Yes 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 Hypothyroidism, unspecified type Left hip pain Vascular dementia with behavior disturbance [place] Other abnormalities of gait and mobility Anemia, unspecified type Her TSH was low so decreased so will decrease levothyroxine to 100 mcg daily. Her A1c was elevated but she is of an advanced age so not going to get aggressive with control. Consider low dose insulin. Continue farxiga 10 mg daily. Check BMP, A1c, TSH and T4 in 6 months. Triglycerides elevated but LDL at goal. Continue atorvastatin 10 mg daily. Continue other orders as directed. All medications reviewed and are medically necessary. ELECTRONICALLY SIGNED BY: Antonio Rangel DO [facility] History of Presen t illness Narrative Patient Name: Cate Ackerman Date of : 1935 Date of Service: 12/03/2024 [place] [facility] [place] of Visit: Acute Visit Subjective Cate Ackerman is a 89 y.o. female seen today at half-way facility for problem visit. Cate requested to see me because of ongoing genitourinary symptoms. She is having burning with urination. She went to the emergency department recently was diagnosed with a UTI. She had Klebsiella pneumoniae in greater than 100,000 colonies. She still has burning with urination and vaginal itching. She denied that she had nausea vomiting. Her appetite is okay. She is drinking fluids. She would like something for the burning. She also has a sore on her nose. She is not sure how long it has been there. She is worried that she might have early shingles. She denies facial pain or headache. She does not recall if she had ever had the shingles vaccine. Allergies: Adhesive, Lactose, and Penicillin Code Status: [facility] BP 132/68 Temp 36.7 C (98 F) Physical Exam Vitals reviewed. Exam conducted with a worship leader present (Felipe Jo MS3). Constitutional: General: She is not in acute distress. Appearance: She is not ill-appearing. Comments: She is in bed watching TV HENT: Head: Normocephalic. Cardiovascular: Rate and Rhythm: Normal rate and regular rhythm. Pulses: Normal pulses. Heart sounds: Normal heart sounds. No murmur heard. Pulmonary: Effort: Pulmonary effort is normal. No respiratory distress. Breath sounds: Normal breath sounds. No wheezing, rhonchi or rales. Abdominal: General: Bowel sounds are normal. There is no distension. Palpations: Abdomen is soft. There is no mass. Tenderness: There is abdominal tenderness in the right lower quadrant. There is no guarding or rebound. Hernia: No hernia is present. Musculoskeletal: Cervical back: Neck supple. Left hip: Crepitus present. No deformity or lacerations. Decreased range of motion. Normal strength. Comments: Skin: Findings: Lesion ([place] macule on left side of nose) present. Neurological: Mental Status: She is alert. Gait: Gait abnormal (Slow, shuffling gait with a cane). Psychiatric: Attention and Perception: Attention normal. Speech: Speech normal. Behavior: Behavior normal. Behavior is cooperative. Cognition and Memory: Cognition is impaired. Memory is impaired. She exhibits impaired recent memory and impaired remote memory. Summary / Assessment / Plan 1. Acute cystitis with hematuria 2. Acute vaginitis 3. External nasal lesion Urine C&S was reviewed. She was treated with Keflex so that should work for her tract infection. We will give her Pyridium 100 mg 3 times a day for 2 days for her dysuria. Will also give her 2 doses of Diflucan 150 mg. One now and then repeat in 72 hours. ELECTRONICALLY SIGNED BY: Antonio Rangel DO documented in this encounter [facility] 11-26-2024 History of Presen t illness Narrative Patient Name: Cate Ackerman Date of : 1935 Date of Service: 11/26/2024 [place] [facility] [place] Type of Visit: Subsequent Visit Subjective Cate Ackerman is a 89 y.o. female seen today at half-way facility for monthly visit. New problems reported by staff or patient. Her swelling is better. X-ray of her left hip did not show any fracture but no mention of arthritis made either. Allergies: Adhesive, Lactose, and Penicillin Code Status: [facility] BP 131/60 Pulse 81 Wt 72.9 kg (160 lb 12.8 oz) SpO2 95% BMI 28.48 kg/m Physical Exam Vitals reviewed. Exam conducted with a worship leader present (Felipe Pangchristophe MS3). Constitutional: General: She is not in acute distress. Appearance: She is not ill-appearing. Comments: She is in bed watching TV HENT: Head: Normocephalic. Cardiovascular: Rate and Rhythm: Normal rate and regular rhythm. Pulses: Normal pulses. Heart sounds: Normal heart sounds. No murmur heard. Pulmonary: Effort: Pulmonary effort is normal. No respiratory distress. Breath sounds: Normal breath sounds. No wheezing, rhonchi or rales. Musculoskeletal: Cervical back: Neck supple. Right lower leg: No edema. Left lower le+ Pitting Edema present. Comments: Neurological: Mental Status: She is alert. Psychiatric: Attention and Perception: Attention normal. Mood and Affect: Mood normal. Speech: Speech normal. Behavior: Behavior normal. Behavior is cooperative. Cognition and Memory: Cognition is impaired. Memory is impaired. She exhibits impaired recent memory and impaired remote memory. Comments: Pleasant today Assessment/Plan Summary / Assessment / Plan 1. Vascular dementia with behavior disturbance (CMS-HCC) 2. Left hip pain 3. Pedal edema 4. Other abnormalities of gait and mobility Her pain and swelling is better so continue to monitor for now. There was no hip fracture. Does look like there is some arthritis there. She has medication for that ordered. Medically stable. Continue current regimen. All medications reviewed and are medically necessary. ELECTRONICALLY SIGNED BY: Antonio Rangel DO documented [facility] History of Presen t illness Narrative Patient Name: Cate Ackerman Date of : 1935 Date of Service: 09/15/2024 Facility: [facility] Type of Visit: Subsequent Visit Subjective Cate Ackerman is a 89 y.o. female seen today at half-way facility for monthly visit. Cate was seen today and she says her left leg is still swollen. She says they compression hose made it worse. She has not had any chest pain or shortness a breath. She is still ambulating per her usual self. She had a venous Doppler done and it was negative for DVT. Otherwise she has no new problems to report. Her appetite is okay. Allergies: Adhesive, Lactose, and Penicillin Code Status: [facility] BP 124/73 Pulse 68 Temp 36.4 C (97.5 F) Resp 16 Wt 72.9 kg (160 lb 11.2 oz) SpO2 96% BMI 28.47 kg/m Physical Exam Vitals reviewed. Constitutional: General: She is not in acute distress. Appearance: She is not ill-appearing. Comments: She is in bed watching TV HENT: Head: Normocephalic. Cardiovascular: Rate and Rhythm: Normal rate and regular rhythm. Pulses: Normal pulses. Heart sounds: Normal heart sounds. No murmur heard. Pulmonary: Effort: Pulmonary effort is normal. No respiratory distress. Breath sounds: Normal breath sounds. No wheezing, rhonchi or rales. Musculoskeletal: Right lower leg: No edema. Left lower le+ Edema present. Comments: 2+ on left. Neurological: Mental Status: She is alert. Gait: Gait abnormal (Slow, shuffling gait). Psychiatric: Attention and Perception: Attention normal. Mood and Affect: Mood normal. Speech: Speech normal. Behavior: Behavior normal. Behavior is cooperative. Cognition and Memory: Cognition is impaired. Memory is impaired. She exhibits impaired recent memory and impaired remote memory. Comments: Pleasant today Summary / Assessment / Plan 1. 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 Pedal edema She has persistent swelling of her left lower extremity due to unclear etiology. Would require further testing but she does not really seem to be bothered by it. Not sure what value that would provide and she is a DNR so no significant intervention would be undertaken. We will continue to monitor. Continue other orders as directed. All medications reviewed and are medically necessary. ELECTRONICALLY SIGNED BY: Antonio Rangel DO [facility] Note HNO ID: [id number] Author: Uzma Smith MA Service: ? 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 She advises patient is in [facility]. She is no longer seeing Dr Banuelos for her care. States she is under the care of the physicians at the [facility] at this time. PCP removed, thank you Patient Identified by Name and : YES, via phone Outreach Outcome/Action PCP field updated Did you use a PCP flex slot to schedule this appointment? N/A Reason for Outreach HCC or suspected condition Payer: Payor: MEDICARE / Plan: MEDICARE A AND B / Product Type: Medicare / Care Gap Reviewed:: N/A Reminder: Reminder note to check Health Maintenance for items below Health Maintenance items due: COVID-19 VACCINE(1) Never done DILATED RETINAL EXAM Never done DIABETIC FOOT EXAM Never done SHINGRIX VACCINE(2 of 3) due on 07/08/2011 URINE ALBUMIN:CREATININE RATIO due on 06/28/2020 HBA1C due on 03/01/2021 DTAP,TDAP,TD(2 - Td or Tdap) due on 05/13/2021 LDL CHOLESTEROL due on 09/01/2021 ADVANCE DIRECTIVE DISCUSSION Never done Navigation Signature: Uzma Smith MA April 03, 2023 1:33 PM [facility] 04-03-2023 Note Patient Outreach (SANDIP TNAV) CATE ACKERMAN ([id number]) 1935 F Date Time Provider Department 04/03/23 UZMA SMITH During your visit today, we recorded the following information about you: Uzma Smith MA 04/03/2023 1:40 PM Signed POPULATION HEALTH NAVIGATION OUTREACH Action/FYI April 03, 2023 1:34 PM Patient is on HCC list for the following: HCC Gaps 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 She advises patient is in [facility]. She is no longer seeing Dr Banuelos for her care. States she is under the care of the physicians at the [facility] at this time. PCP removed, thank you Patient Identified by Name and : YES, via phone Outreach Outcome/Action PCP field updated Did you use a PCP flex slot to schedule this appointment? N/A Reason for Outreach HCC or suspected condition Payer: Payor: MEDICARE / Plan: MEDICARE A AND B / Product Type: Medicare / Care Gap Reviewed:: N/A Reminder: Reminder note to check Health Maintenance for items below Health Maintenance items due: COVID-19 VACCINE(1) Never done DILATED RETINAL EXAM Never done DIABETIC FOOT EXAM Never done SHINGRIX VACCINE(2 of 3) due on 07/08/2011 URINE ALBUMIN:CREATININE RATIO due on 06/28/2020 HBA1C due on 03/01/2021 DTAP,TDAP,TD(2 - Td or Tdap) due on 05/13/2021 LDL CHOLESTEROL due on 09/01/2021 ADVANCE DIRECTIVE DISCUSSION Never done Navigation Signature: Uzma Smith MA April 03, 2023 1:33 PM Allergies As of Date: 04/03/2023 Noted Allergy Reaction ADHESIVE TAPE (ROSINS) 04/29/2013 9 - Itching LACTOSE 01/15/2018 6 - Diarrhea Comments: no cow's milk PENICILLINS 08/22/2004 4 - Hives sensitive to STATINS [Other] 06/08/2010 14 - Other: See Comments Comments: muscle pain Date Reviewed: 09/04/2020 Reviewed by: Dorene Alas MA - Fully Assessed Reason for Visit: Population Health Navigation Outreach [3910] Cmt: ACO HCC Prescriptions as of 04/03/2023 - busPIRone (BUSPAR) 7.5 mg tablet Take 1 tablet by mouth twice daily. - potassium chloride (K-TAB) 10 mEq tablet Take 1 tablet by mouth once daily. - SITagliptin (JANUVIA) 100 mg tablet Take 1 tablet by mouth once daily. - amLODIPine (NORVASC) 2.5 mg tablet Take 2 tablets by mouth once daily. - indapamide (LOZOL) 2.5 mg tablet Take 1 tablet by mouth once daily. - sertraline (ZOLOFT) 100 mg tablet Take 1 tablet by mouth once daily. - levothyroxine (SYNTHROID) 125 mcg tablet TAKE 1 TABLET BY MOUTH DAILY BEFORE BREAKFAST - atorvastatin (LIPITOR) 10 mg tablet TAKE 1 TABLET BY MOUTH ONCE DAILY - Omeprazole 40 mg capsule TAKE 1 CAPSULE BY MOUTH ONCE DAILY - Blood-Glucose Meter (ACCU-CHEK FRANCESCA PLUS METER) misc 1 Device once daily. - blood sugar diagnostic (ACCU-CHEK FRANCESCA) test strip Use once daily E11.9 - metFORMIN (GLUCOPHAGE) 1,000 mg tablet Take 1 tablet by mouth twice daily. - Cholecalciferol, Vitamin D3, 1,000 unit cap Take 1 capsule by mouth once daily. - Lancing Device with Lancets (ACCU-CHEK SOFT DEV LANCETS) kit 1 Device once daily. 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] 01/01/2007 Symptomatic states associated with artificial m* Osteopenia [M85.80] Kidney stone [N20.0] Lactose intolerance [E73.9] Osteoarth NOS-l/leg [LML0047] 02/21/2012 Osteoarthritis, knee [M17.9] 07/31/2012 Hyperlipidemia LDL goal <130 [E78.5] 08/31/2012 Essential hypertension [I10] Other specified hypothyroidism [E03.8] Atrial fibrillation (HCC) [I48.91] 12/30/2017 Depression [F32.A] 08/31/2020 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] 10/06/2016 ELTON (obstructive sleep apnea) [G47.33] 10/08/2016 Malnutrition of mild degree (HCC) [E44.1] 10/15/2016 11/20/2017 S/P repair of paraesophageal hernia [Z98.890, Z*11/25/2016 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 She advises patient is in [facility]. She is no longer seeing Dr Banuelos for her care. States she is under the care of the physicians at the [facility] at this time. PCP removed, thank you Patient Identified by Name and : YES, via phone Outreach Outcome/Action PCP field updated Did you use a PCP flex slot to schedule this appointment? N/A Reason for Outreach HCC or suspected condition Payer: Payor: MEDICARE / Plan: MEDICARE A AND B / Product Type: Medicare / Care Gap Reviewed:: N/A Reminder: Reminder note to check Health Maintenance for items below Health Maintenance items due: COVID-19 VACCINE(1) Never done DILATED RETINAL EXAM Never done DIABETIC FOOT EXAM Never done SHINGRIX VACCINE(2 of 3) due on 07/08/2011 URINE ALBUMIN:CREATININE RATIO due on 06/28/2020 HBA1C due on 03/01/2021 DTAP,TDAP,TD(2 - Td or Tdap) due on 05/13/2021 LDL CHOLESTEROL due on 09/01/2021 ADVANCE DIRECTIVE DISCUSSION Never done Navigation Signature: Uzma Smith MA April 03, 2023 1:33 PM documented in this encounter [facility] 05-09-2021 Note PROCEDURE: XR WRIST LT 2V HISTORY: Pain of left wrist ; follow-up fracture COMPARISON: None. FINDINGS: BONES:Small avulsion fracture involving the styloid process of the ulna. Band of mildly increased sclerosis across the distal radial metaphysis suspicious for impaction type fracture. Complete loss of the joint space between the radius and scaphoid with bone remodeling of the radial surface. Multifocal degenerative changes of the carpal bones. SOFT TISSUES:Soft tissue swelling surrounding the wrist. EFFUSION:None visible. OTHER: Negative. IMPRESSION: 1. Suspect mild impaction fracture of the distal radial metaphysis. 2. Minimally displaced avulsion fracture of the ulnar styloid process. 3. 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 4. No comparison studies or reports. Electronically authenticated by: RJ ESTRADA Date: 2021-05-09 09:38 [facility] 03-11-2018 History of Past i llness Narrative Problem Noted Date Resolved Date Proximal humerus fracture 03/11/20182019 Overview: Added automatically from request for surgery [id number] Healthcare maintenance 03/05/2018 0 Closed fracture of left proximal humerus 018 08/31/2020 Acute pain of left shoulder due to trauma 201708/31/2020 Aftercare for healing traumatic fracture of goldy claudette, left 03/04/2018 08/31/2020 Malnutrition of mild degree 10/15/201605/2018 Contact dermatitis and other eczema, due to unspecified cause 01/01/2007 08/31/2020 Neoplasm of uncertain behavior of skin 6 11/20/2017 Atrial fibrillation 12/30/2017 Overview: Hx of paroxsymal, not on coumadin. Currently SR. 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 ([facility])- Primary Pedal edema Edema [facility] assessment information available [facility] Work Phone: Evaluation note* Diagnosis Acute cystitis with hematuria- Primary Acute vaginitis Unspecified vaginitis and vulvovaginitis External nasal lesion [facility]* Diagnosis Vascular dementia with behavior disturbance (CMS-HCC)- Primary Left hip pain Pain in joint, pelvic region and thigh Pedal edema Edema Other abnormalities of gait and mobility [facility] Diagnosis Essential hypertension- Primary Unspecified essential hypertension 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 (CMS-HCC) Hypothyroidism, unspecified type Left hip pain Pain in joint, pelvic region and thigh Vascular dementia with behavior disturbance (CMS-HCC) Other abnormalities of gait and mobility Anemia, unspecified type documented in [facility] Diagnosis Vascular dementia with behavior disturbance (CMS-HCC)- Primary 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 (CMS-HCC) documented [facility] Diagnosis Urinary tract infection without hematuria, site unspecified- Primary Lumbar spondylosis Lumbosacral spondylosis without myelopathy Essential hypertension Unspecified essential hypertension [facility] Diagnosis [facility]ascular dementia with behavior disturbance ([facility])- Primary Acute right-sided low back pain without sciatica Dysuria Type 2 diabetes mellitus with stage 3a chronic kidney disease, without long-term current use of insulin ([facility]) [facility] Diagnosis Vascular dementia with behavior disturbance (CMS-HCC)- Primary Lumbar spondylosis Lumbosacral spondylosis without myelopathy Schizoaffective disorder, unspecified type ([facility]) [facility] filed[facility] in [facility] filedocumented in [facility] filedocumented in this [facility] filedocumented in [facility] Summary Purpose Family History Relationship Condition Age at Onset Recorded Date/T dany brother Unknown father Unknown Heart disease Unknown mother Unknown Malignant neoplasm Unknown sister Unknown Advance Directives Documents on File Type Date Recorded Patient 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 Expl anation Advance Directive(s) 05/03/2013 4:44 PM Documents on File Type Date Recorded Patient 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 Expl anation Durable Power of Sketch Artist Living Will 09/18/2020 5:41 PM Living Sudhir l 09-18-20 Durable Power of Sketch Artist 09/18/2020 5:39 PM Medical Power of Sketch Artist 09-18-20 Date Activated Date Inactivated Comments 08/27/2023 3:29 PM 08/29/2023 8:10 PM Date Activated Date Inactivated Comments 08/26/2023 5:47 PM 08/27/2023 3:29 PM Date Activated Date Inactivated Comments 08/26/2023 2:00 PM 08/26/2023 5:47 PM Date Activated Date Inactivated Comments 08/26/2023 4:59 AM 08/26/2023 11:22 AM Advance Directive Response Recorded Date/ Time Advance Directives No September 11:56am Additional Source Comments INFORMATION SOURCE (unrecogn ized section and content) DATE CREATED AUTHOR 12/13/2018 [facility] DATE CREATED AUTHOR AUTHOR'S ORGANIZ ATION 10/23/2020 [facility] DATE CREATED AUTHOR AUTHOR'S ORGANIZ ATION 05/22/2021 [facility] DATE CREATED AUTHOR AUTHOR'S ORGANIZ ATION 04/04/2023 [facility] DATE CREATED AUTHOR AUTHOR'S ORGANIZ ATION 11/29/2024 [facility] Source Comments (unrecognize d section and content) In the event this informatio n is protected by the Federal Confidentiality of Alcohol and Drug Abuse Patient Records regulations: The Federal rules restrict any use of the information to criminally investigate or prosecute any alcohol or drug abuse patient.[facility] Reason for Visit (unrecogniz ed section and content) Reason Onset Date Comments Population Health Navigation Outreach 04/03/2023 [facility] Reason Onset Date Comments bruise 03/29/2025 Care Teams (unrecognized sec tion and content) Self Defense Instructor Relationship Specialty Start Date End Date Antonio Rangel DO PCP - General Family Medicine 08/25/23 Team Status: Inactive Member Role Status Dates Antonio Rangel DO Attending Provider Active St art: November 27, 2024 End: November 27, 2024 Self Defense Instructor Relationship Specialty Start Date End Date Antonio Rangel DO PCP - General Family Medicine 08/25/23 Self Defense Instructor Relationship Specialty Start Date End Date Antonio Rangel DO PCP - General Family Medicine 08/25/23 Self Defense Instructor Relationship Specialty Start Date End Date Antonio Rangel DO PCP - General Family Medicine 08/25/23 Self Defense Instructor Relationship Specialty Start Date End Date Antonio Rangel DO PCP - General Family Medicine 08/25/23 Self Defense Instructor Relationship Specialty Start Date End Date Antonio Rangel DO PCP - General Family Medicine 08/25/23 Goals (unrecognized section and content) Goals may be documented in a n alternate section FOR RECORDS PERTAINING TO PATIENTS WHO ARE OR HAVE BEEN ENROLLED IN A CHEMICAL DEPENDENCY/SUBSTANCEABUSE PROGRAM, SOME INFORMATION MAY BE OMITTED. This clinical summary was aggregated from multiple sources. Caution should be exercised in using it in the provision of clinical care. This summary normalizes information from multiple sources, and as a consequence, information in this document may materially change the coding, format and clinical context of patient data. In addition, data may be omitted in some cases. CLINICAL DECISIONS SHOULD BE BASED ON THE PRIMARY CLINICAL RECORDS. [employer] [facility]. provides no warranty or guarantee of the accuracy or completeness of information in this document.
[2025-05-30 13:29] LABS: Anion Gap 14.2; Blood Urea Nitrogen 24.0 mg/dL (7.0-18.0); Calcium 9.5 mg/dL (8.5-10.1); Carbon Dioxide 25.3 mmol/L (21.0-32.0); Chloride 105 mmol/L (98-107); Estimated GFR (African America 35 (>=60 mL/min/1.73m^2); Estimated GFR (Non-African Ame 29 (>=60 mL/min/1.73m^2); Glucose 170 mg/dL (74-106); Potassium 5.5 mmol/L (3.5-5.1); Sodium 139 mmol/L (136-145)
== END 2025-05-30 12:21 | disposition home or self-care (01) ==
LOC: LAB 12:20
PROVIDERS: PCP Family Medicine; Visit Provider Family Medicine
DX: E11.9 Type 2 diabetes mellitus without complications (principal)
CPT/HCPCS: 36415; 80048